=== PATIENT | male | born 1950 | race Hispanic/Latino ===

== ENCOUNTER 2017-08-22 07:23 | Inpatient (IN) | payer MEDICARE ==
[~2017-08-22] VITALS: Ht 167.6 cm; Wt 84.4 kg
[~2017-08-22 07:23] MED LIST: ADVAIR 250-501 EACH; ATORVASTATIN CA20 MG PO; DUONEB; FAMOTIDINE20 MG PO; FLOMAX0.4 MG PO; FUROSEMIDE40 MG/4 ML PO; GABAPENTIN300 MG PO; GLIPIZIDE ER5 MG PO; GLUCOPHAGE500 MG PO; HYDROCHLOROTHIA25 MG PO; KEFLEX500 MG PO; LASIX40 MG PO; LISINOPRIL10 MG PO; LISINOPRIL2.5 MG PO; MEDR; METOPROLOL TART50 MG PO; NORCO 7.5-3251 EACH PO; PLAVIX75 MG PO; PRAVASTATIN SOD80 MG PO; PROVENTIL HFA6.7 GM INH; SENNA S TABLET1 EACH PO; SPIRONOLACTONE25 MG PO; SYMBICORT 16010.2 GM INH; TAMSULOSIN HCL0.4 MG PO; [UNRECOGNIZED DRUG - OTHER]
[2017-08-22] MEDS ORDERED: ASPIRIN 81 MG CHEW TAB PO STA (07:30)
[2017-08-22] MEDS ORDERED: IPRATROPIUM BROMIDE 0.02% 2.5 ML NEB NEB STA (07:30)
[2017-08-22] MEDS ORDERED: METHYLPREDNISOLONE SOD SUCC 125 MG/2ML VIAL IV STA (07:30)
[2017-08-22] MEDS ORDERED: ALBUTEROL SULF 0.083% NEB SOLN 3 ML NEB NEB STA (07:30)
[2017-08-22 07:55] LABS: BASOPHILS % 0.4 % (0.0-1.0); EOSINOPHILS # (AUTO) 0.1 (0.0-0.4); HEMATOCRIT 39.1 % (38.2-49.6); HEMOGLOBIN 13.2 g/dL (14.0-18.0); LYMPHOCYTES % 12.1 % (18.0-39.1); MEAN CORPUSCULAR HEMOGLOBIN 29.7 pg (28-32); MEAN CORPUSCULAR HGB CONC 33.8 g/dL (31-35); MEAN CORPUSCULAR VOLUME 87.9 fL (81-99); MONOCYTES # (AUTO) 0.5 (0.2-0.8); MONOCYTES % 6.4 % (4.4-11.3); NEUTROPHILS # (AUTO) 6.3 (2.1-6.9); NEUTROPHILS % 79.8 % (38.7-80.0); PLATELET COUNT 181 x10e3/uL (140-360); RED BLOOD COUNT 4.45 x10e6/uL (4.3-5.7); RED CELL DISTRIBUTION WIDTH 15.2 % (11.7-14.4)
[2017-08-22 08:07] LABS: INR 0.98; PROTHROMBIN TIME 13.5 seconds (11.9-14.5)
--- NOTE | 2017-08-22 08:17 | Diagnostic Imaging Report ---
PROCEDURE: CHEST SINGLE (PORTABLE) COMPARISON: 07/13/2017. INDICATIONS: SHORTNESS OF BREATH FINDINGS: The lungs remain well-inflated. No focal airspace consolidation, pleural effusion, or pneumothorax. Stable postsurgical changes of the mediastinum with associated cardiomegaly. Mild prominence of the pulmonary vascular structures centrally. No acute osseous abnormality. CONCLUSION: Cardiomegaly with pulmonary venous congestion, similar in degree to that noted on 07/13/2017. Dictated by: Saul Fried M.D. on 08/22/2017 at 8:26 Electronically approved by: Saul Fried M.D. on 08/22/2017 at 8:26
[2017-08-22 08:31] LABS: B-TYPE NATRIURETIC PEPTIDE2 1263.4 pg/mL (0-100)
[2017-08-22] MEDS ORDERED: DOXYCYCLINE 100MG/NS 100ML 100 ML IV ONE (09:00)
[2017-08-22 09:07] LABS: ALBUMIN 3.8 g/dL (3.5-5.0); ALBUMIN/GLOBULIN RATIO 1.1 (0.8-2.0); ANION GAP 14.1 mmol/L (8-16); CALCIUM 9.1 mg/dL (8.4-10.2); CREATININE, SERUM 1.26 mg/dL (0.72-1.25); MAGNESIUM 2.1 MG/DL (1.3-2.1); POTASSIUM 4.1 mmol/L (3.5-5.1)
[2017-08-22 09:13] LABS: CREATINE KINASE MB 2.1 ng/mL (0.00-5.00)
[2017-08-22] MEDS ORDERED: ALBUTEROL/IPRATROPIUM 3 ML NEB NEB PRN (09:45)
[2017-08-22] MEDS ORDERED: ASPIRIN 81 MG CHEW TAB PO ONE (09:45)
[2017-08-22] MEDS: ALBUTEROL/IPRATROPIUM 3 ML NEB NEB SCH ×4 (10:54→21:45)
[2017-08-22] MEDS: LEVOFLOXACIN 750MG/D5W 150ML 150 ML IV SCH (12:25)
[2017-08-22] MEDS ORDERED: DEXTROSE 50% SYRINGE 50 ML IV PRN (14:00)
[2017-08-22 14:11] LABS: BILIRUBIN,URINE NEGATIVE (NEGATIVE); KETONES,URINE NEGATIVE (NEGATIVE); LEUKOCYTE ESTERASE ,URINE NEGATIVE (NEGATIVE); NITRITE,URINE NEGATIVE (NEGATIVE); PROTEIN,URINE DIPSTICK NEGATIVE (NEGATIVE); URINE UROBILINOGEN 0.2 mg/dL (0.2 - 1)
[2017-08-22 14:12] LABS: CLARITY,URINE CLEAR (CLEAR); COLOR,URINE YELLOW (YELLOW)
[2017-08-22 14:26] LABS: EPITHELIAL CELLS,URINE RARE /LPF; HYALINE CASTS >15 (0-1); WBC,URINE (MAN) 0-5 /HPF (0-5)
[2017-08-22] MEDS: METHYLPREDNISOLONE SOD SUCC 125 MG/2ML VIAL IV SCH ×2 (15:01→21:30)
[2017-08-22] MEDS: INSULIN REGULAR, HUMAN 100 UNIT/1 ML 3ML VIAL SQ SCH ×2 (16:04→20:54)
[2017-08-22 16:17] LABS: CREATINE KINASE MB 1.7 ng/mL (0.00-5.00)
[2017-08-22 16:39] VITALS: BP 143/69
[2017-08-22 16:40] VITALS: BP 143/69
[2017-08-22 19:20] VITALS: BP 127/59
[2017-08-22 21:59] VITALS: BP 127/59
[2017-08-23] VITALS: BP 135/59
[2017-08-23] MEDS: ALBUTEROL/IPRATROPIUM 3 ML NEB NEB SCH ×5 (04:45→21:15)
[2017-08-23 05:00] VITALS: BP 155/67
[2017-08-23] MEDS: METHYLPREDNISOLONE SOD SUCC 125 MG/2ML VIAL IV SCH ×3 (06:04→21:32)
[2017-08-23 06:43] LABS: BASOPHILS % 0.1 % (0.0-1.0); HEMATOCRIT 36.3 % (38.2-49.6); HEMOGLOBIN 12.3 g/dL (14.0-18.0); LYMPHOCYTES # (AUTO) 0.4 (1.0-3.2); LYMPHOCYTES % 4.2 % (18.0-39.1); MEAN CORPUSCULAR HEMOGLOBIN 29.1 pg (28-32); MEAN CORPUSCULAR HGB CONC 33.9 g/dL (31-35); MEAN CORPUSCULAR VOLUME 85.8 fL (81-99); MONOCYTES # (AUTO) 0.2 (0.2-0.8); MONOCYTES % 1.5 % (4.4-11.3); NEUTROPHILS # (AUTO) 9.7 (2.1-6.9); NEUTROPHILS % 93.7 % (38.7-80.0); PLATELET COUNT 200 x10e3/uL (140-360); RED BLOOD COUNT 4.23 x10e6/uL (4.3-5.7)
[2017-08-23 07:04] LABS: ANION GAP 17.6 mmol/L (8-16); BLOOD UREA NITROGEN 30 mg/dL (7-26); BUN/CREATININE RATIO 25 (6-25); CALCIUM 9.4 mg/dL (8.4-10.2); CARBON DIOXIDE 22 mmol/L (22-29); CHLORIDE 101 mmol/L (98-107); CREATININE, SERUM 1.18 mg/dL (0.72-1.25); EST GLOMERULAR FILTRATION RATE > 60 ML/MIN (60-); GLUCOSE 253 mg/dL (74-118); POTASSIUM 4.6 mmol/L (3.5-5.1); SODIUM 136 mmol/L (136-145)
[2017-08-23 07:57] VITALS: BP 127/60
[2017-08-23] MEDS ORDERED: SODIUM CHLORIDE 0.9% 250ML 250 ML ONE (08:46)
[2017-08-23] MEDS: INSULIN REGULAR, HUMAN 100 UNIT/1 ML 3ML VIAL SQ SCH ×4 (08:53→21:31)
[2017-08-23] MEDS ORDERED: GLIPIZIDE 5 MG TAB ER PO SCH (09:00)
[2017-08-23] MEDS: CLOPIDOGREL BISULFATE 75 MG TAB PO SCH (10:02)
[2017-08-23] MEDS: FAMOTIDINE 20 MG TAB PO SCH ×2 (10:02→17:02)
[2017-08-23] MEDS: FUROSEMIDE INJ 10 MG/ML 4 ML VIAL IV SCH (10:02)
[2017-08-23] MEDS: GUAIFENESIN 600 MG TAB PO SCH ×2 (10:02→17:02)
[2017-08-23] MEDS: GLIPIZIDE 2.5 MG TABCR PO SCH (10:02)
[2017-08-23] MEDS: SPIRONOLACTONE 25 MG TAB PO SCH (10:02)
[2017-08-23] MEDS: BUDESONIDE/FORMOTEROL 160/4.5MCG INHALER INH SCH ×2 (10:02→21:15)
[2017-08-23] MEDS: LEVOFLOXACIN 750MG/D5W 150ML 150 ML IV SCH (10:46)
[2017-08-23 11:28] VITALS: BP 137/63
--- NOTE | 2017-08-23 12:23 | Diagnostic Imaging Report ---
PROCEDURE: CT CHEST WITHOUT CONTRAST CT scan of the chest WITHOUT intravenous contrast, using standard protocol. TECHNIQUE: The chest was scanned utilizing a multidetector helical scanner from the apex to the level of the adrenal glands. No IV contrast was administered per protocol/per physician request). Coronal and sagittal multiplanar reformations were obtained. Total DLP: 516.78 COMPARISON: [facility], CT, CT CHEST W, 04/24/2017, 12:41. INDICATIONS: SHORTNESS OF BREATH FINDINGS: Lines/tubes: None. Lungs and Airways: Left basilar atelectasis versus scarring. There is a posterior left basilar ground-glass nodule estimated at 1.3 cm on image 80 series 2. Left upper lobe and lingula early in her atelectasis versus scarring. No focal consolidation. Pleura: Interval resolution of the fluid present bilateral pleural effusions. Heart and mediastinum: The heart is moderately enlarged. Calcifications of the thoracic aorta without aneurysmal dilatation. No significant mediastinal, hilar or axillary lymphadenopathy is seen. The main pulmonary artery is dilated measuring 3.5 cm in diameter. Multivessel coronary artery calcifications. Median sternotomy wires. Soft tissues: Normal. Abdomen: Limited views of the upper abdomen show extensive atherosclerotic calcifications. The glands are unremarkable. Bones: The visualized bony thorax is within normal limits. IMPRESSION: 1. No acute thoracic abnormality. 2. 1.0 cm ground-glass nodule in the left lung base posteriorly. Recommend followup CT chest nodule protocol in 6 months to document resolution. 2. Multivessel coronary artery disease. 3. Moderate cardiomegaly without pulmonary edema. Vel Qureshi M.D. Dictated by: Vel Qureshi M.D. on 08/23/2017 at 12:31 Electronically approved by: Vel Qureshi M.D. on 08/23/2017 at 12:31
--- NOTE | 2017-08-23 13:05 | Consultation ---
DATE OF CONSULTATION: August 23, 2017 PULMONARY CONSULTATION REASON FOR THE CONSULT: Shortness of breath and wheezing. HPI: Mr. Shrestha is a 66-year-old male who presented with shortness of breath and wheezing. The symptoms have been going on for 3 days, progressively getting worse. He reports that he smoked for 10-12 years in his life, but he has been diagnosed with COPD and is on inhalers at home. He denies any chest pain, nausea, vomiting, diarrhea, or focal weakness. He was started on Symbicort inhaler and Solu-Medrol. Patient reports that he is breathing a little better. REVIEW OF SYSTEMS GENERAL: Denies any fever or chills. HEAD: Denies any head trauma or head injury. ENT: Denies any earache, nosebleed, or throat pain. CVS: Denies any chest pain. RESPIRATORY: Shortness of breath and wheezing. The rest of the review systems is negative except as in the HPI. PAST MEDICAL HISTORY: Hypertension, diabetes, and hyperlipidemia. PAST SURGICAL HISTORY: CABG. FAMILY AND SOCIAL HISTORY: He smoked for 10 years in his life, quit 30 years ago. 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 PHYSICAL EXAMINATION VITAL SIGNS: Temperature 98.6, pulse of 78, blood pressure 127/60, and O2 sat 97% on room air. SKIN: Warm and dry. GENERAL APPEARANCE: He is an elderly male, not in any obvious distress. He is awake and alert, following commands, responding to questions appropriately. HEENT: Head atraumatic, normocephalic. Pupils are reactive. NECK: Supple. CHEST: Wheezing bilaterally. HEART: S1, S2 audible. ABDOMEN: Soft, nontender, nondistended. EXTREMITIES: No pedal edema. NEUROLOGIC: Awake and alert. LABORATORY DATA: White count of 10,000, hemoglobin 12.3, and platelets 200. Chemistry; sodium 136, potassium 4.6, chloride 101, BUN 30, and creatinine 1.18. Creatinine on presentation was 1.26. CT of the chest was done. The official report is pending, but it is showing cardiomegaly, no focal infiltrate on my review. ASSESSMENT: Mr. Shrestha is a 66-year-old male who has history of congestive heart failure and COPD, presented with shortness of breath. I think it is a combination of congestive heart failure versus reactive airway disease, unlikely that the patient has COPD with 15 years of smoking. PLAN: Continue the patient on Solu-Medrol and Symbicort inhaler. Currently, he is wheezing. Once the wheezing is better, then may consider doing a PFT. Continue diuretics. Patient likely has diastolic heart failure. Thank you for this consult. Job#: [id number] SAK
[2017-08-23] MEDS: ATORVASTATIN 40 MG TAB PO SCH (21:32)
[2017-08-24] MEDS: ALBUTEROL/IPRATROPIUM 3 ML NEB NEB SCH ×7 (02:15→23:23)
[2017-08-24] MEDS: METHYLPREDNISOLONE SOD SUCC 125 MG/2ML VIAL IV SCH ×2 (05:22→14:16)
[2017-08-24 06:40] LABS: BASOPHILS % 0.2 % (0.0-1.0); HEMATOCRIT 35.6 % (38.2-49.6); LYMPHOCYTES # (AUTO) 0.4 (1.0-3.2); MEAN CORPUSCULAR HEMOGLOBIN 29.2 pg (28-32); MEAN CORPUSCULAR HGB CONC 33.7 g/dL (31-35); MEAN CORPUSCULAR VOLUME 86.6 fL (81-99); MONOCYTES # (AUTO) 0.2 (0.2-0.8); MONOCYTES % 1.6 % (4.4-11.3); NEUTROPHILS # (AUTO) 11.2 (2.1-6.9); NEUTROPHILS % 94.8 % (38.7-80.0); PLATELET COUNT 206 x10e3/uL (140-360); RED BLOOD COUNT 4.11 x10e6/uL (4.3-5.7); RED CELL DISTRIBUTION WIDTH 15.5 % (11.7-14.4)
[2017-08-24 07:12] LABS: ANION GAP 17.9 mmol/L (8-16); CALCIUM 9.4 mg/dL (8.4-10.2); CREATININE, SERUM 1.38 mg/dL (0.72-1.25); POTASSIUM 3.9 mmol/L (3.5-5.1)
[2017-08-24 07:51] VITALS: BP 128/60
[2017-08-24] MEDS: CLOPIDOGREL BISULFATE 75 MG TAB PO SCH (08:21)
[2017-08-24] MEDS: LEVOFLOXACIN 750MG/D5W 150ML 150 ML IV SCH (08:21)
[2017-08-24] MEDS: FAMOTIDINE 20 MG TAB PO SCH ×2 (08:21→16:38)
[2017-08-24] MEDS: GUAIFENESIN 600 MG TAB PO SCH ×2 (08:21→16:38)
[2017-08-24] MEDS: SPIRONOLACTONE 25 MG TAB PO SCH (08:21)
[2017-08-24] MEDS: GLIPIZIDE 2.5 MG TABCR PO SCH (08:21)
[2017-08-24] MEDS: FUROSEMIDE INJ 10 MG/ML 4 ML VIAL IV SCH (08:21)
[2017-08-24] MEDS: INSULIN REGULAR, HUMAN 100 UNIT/1 ML 3ML VIAL SQ SCH ×2 (08:22→12:56)
[2017-08-24] MEDS ORDERED: GLIPIZIDE 2.5 MG TABCR PO SCH (09:00)
[2017-08-24 10:52] VITALS: BP 128/60
[2017-08-24] MEDS: BUDESONIDE/FORMOTEROL 160/4.5MCG INHALER INH SCH ×2 (11:20→19:50)
[2017-08-24 12:06] VITALS: BP 135/63
[2017-08-24] MEDS ORDERED: DEXTROSE 50% SYRINGE 50 ML IV PRN (13:00)
[2017-08-24] MEDS: MAGNESIUM HYDROXIDE 30 ML UDC PO PRN (14:16)
[2017-08-24 16:10] VITALS: BP 135/62
[2017-08-24] MEDS: INSULIN LISPRO 100 UNIT/1 ML 3ML VIAL SQ SCH ×2 (16:38→20:37)
[2017-08-24 20:00] VITALS: BP 129/73
[2017-08-24] MEDS: ATORVASTATIN 40 MG TAB PO SCH (20:36)
[2017-08-25] VITALS (7 sets, daily range): BP systolic 125–142; BP diastolic 61–72
[2017-08-25] MEDS: METHYLPREDNISOLONE SOD SUCC 125 MG/2ML VIAL IV SCH ×3 (00:03→15:32)
[2017-08-25] MEDS: ALBUTEROL/IPRATROPIUM 3 ML NEB NEB SCH ×6 (03:20→23:27)
[2017-08-25] MEDS: MAGNESIUM HYDROXIDE 30 ML UDC PO PRN (06:38)
[2017-08-25] MEDS: BUDESONIDE/FORMOTEROL 160/4.5MCG INHALER INH SCH ×2 (07:20→19:46)
[2017-08-25 07:40] LABS: BASOPHILS % 0.1 % (0.0-1.0); HEMATOCRIT 37.4 % (38.2-49.6); HEMOGLOBIN 12.6 g/dL (14.0-18.0); LYMPHOCYTES # (AUTO) 0.3 (1.0-3.2); LYMPHOCYTES % 2.9 % (18.0-39.1); MEAN CORPUSCULAR HEMOGLOBIN 29.2 pg (28-32); MEAN CORPUSCULAR HGB CONC 33.7 g/dL (31-35); MEAN CORPUSCULAR VOLUME 86.8 fL (81-99); MONOCYTES # (AUTO) 0.4 (0.2-0.8); NEUTROPHILS % 93.1 % (38.7-80.0); PLATELET COUNT 227 x10e3/uL (140-360); RED BLOOD COUNT 4.31 x10e6/uL (4.3-5.7); RED CELL DISTRIBUTION WIDTH 15.5 % (11.7-14.4)
[2017-08-25 08:01] LABS: ANION GAP 16.1 mmol/L (8-16); CALCIUM 9.2 mg/dL (8.4-10.2); CREATININE, SERUM 1.35 mg/dL (0.72-1.25); POTASSIUM 4.1 mmol/L (3.5-5.1)
[2017-08-25] MEDS: GLIPIZIDE 2.5 MG TABCR PO SCH (08:12)
[2017-08-25] MEDS: CLOPIDOGREL BISULFATE 75 MG TAB PO SCH (08:13)
[2017-08-25] MEDS: SPIRONOLACTONE 25 MG TAB PO SCH (08:13)
[2017-08-25] MEDS: LEVOFLOXACIN 750MG/D5W 150ML 150 ML IV SCH (08:13)
[2017-08-25] MEDS: GUAIFENESIN 600 MG TAB PO SCH ×2 (08:13→17:30)
[2017-08-25] MEDS: FUROSEMIDE INJ 10 MG/ML 4 ML VIAL IV SCH (08:13)
[2017-08-25] MEDS: FAMOTIDINE 20 MG TAB PO SCH ×2 (08:13→17:30)
[2017-08-25] MEDS: INSULIN LISPRO 100 UNIT/1 ML 3ML VIAL SQ SCH ×4 (08:13→21:50)
[2017-08-25] MEDS: ATORVASTATIN 40 MG TAB PO SCH (21:50)
[2017-08-26] VITALS (7 sets, daily range): BP systolic 109–136; BP diastolic 57–77
[2017-08-26] MEDS: ALBUTEROL/IPRATROPIUM 3 ML NEB NEB SCH ×5 (03:18→19:45)
[2017-08-26] MEDS: BUDESONIDE/FORMOTEROL 160/4.5MCG INHALER INH SCH ×2 (08:00→19:45)
[2017-08-26] MEDS: GLIPIZIDE 2.5 MG TABCR PO SCH (08:24)
[2017-08-26] MEDS: FUROSEMIDE INJ 10 MG/ML 4 ML VIAL IV SCH (08:24)
[2017-08-26] MEDS: SPIRONOLACTONE 25 MG TAB PO SCH (08:24)
[2017-08-26] MEDS: GUAIFENESIN 600 MG TAB PO SCH ×2 (08:25→17:19)
[2017-08-26] MEDS: CLOPIDOGREL BISULFATE 75 MG TAB PO SCH (08:25)
[2017-08-26] MEDS: FAMOTIDINE 20 MG TAB PO SCH ×2 (08:25→17:19)
[2017-08-26] MEDS: INSULIN LISPRO 100 UNIT/1 ML 3ML VIAL SQ SCH ×4 (08:26→20:44)
[2017-08-26] MEDS: MAGNESIUM HYDROXIDE 30 ML UDC PO PRN (08:26)
[2017-08-26] MEDS: LEVOFLOXACIN 750MG/D5W 150ML 150 ML IV SCH (08:28)
[2017-08-26] MEDS ORDERED: METHYLPREDNISOLONE SOD SUCC 40 MG/ML VIAL IV SCH (09:00)
[2017-08-26] MEDS ORDERED: BISACODYL 10 MG SUPP PR ONE (12:00)
[2017-08-26] MEDS: SENNOSIDES 8.6 MG TAB PO SCH (12:32)
[2017-08-26] MEDS ORDERED: POLYETHYLENE GLYCOL 3350 17 GM PACK PO ONE (18:30)
[2017-08-26] MEDS: ATORVASTATIN 40 MG TAB PO SCH (20:42)
[2017-08-27] MEDS: ALBUTEROL/IPRATROPIUM 3 ML NEB NEB SCH ×3 (00:15→07:00)
[2017-08-27 01:40] VITALS: BP 106/58
[2017-08-27 05:08] VITALS: BP 121/79
[2017-08-27] MEDS ORDERED: METHYLPREDNISOLONE SOD SUCC 40 MG/ML VIAL IV SCH (07:30)
[2017-08-27 08:00] VITALS: BP 133/72
[2017-08-27] MEDS: INSULIN LISPRO 100 UNIT/1 ML 3ML VIAL SQ SCH (09:00)
[2017-08-27] MEDS: CLOPIDOGREL BISULFATE 75 MG TAB PO SCH (09:30)
[2017-08-27] MEDS: FAMOTIDINE 20 MG TAB PO SCH (09:30)
[2017-08-27] MEDS: SENNOSIDES 8.6 MG TAB PO SCH (09:30)
[2017-08-27] MEDS: GUAIFENESIN 600 MG TAB PO SCH (09:30)
[2017-08-27] MEDS: SPIRONOLACTONE 25 MG TAB PO SCH (09:30)
[2017-08-27] MEDS: FUROSEMIDE INJ 10 MG/ML 4 ML VIAL IV SCH (10:00)
[2017-08-27] MEDS: GLIPIZIDE 2.5 MG TABCR PO SCH (10:00)
[2017-08-27] MEDS ORDERED: TYLENOL WITH C1 EACH PO (10:03)
[2017-08-27] MEDS ORDERED: LEVAQUIN500 MG PO (10:03)
[2017-08-27] MEDS ORDERED: VENTOLIN HFA18 GM INH (10:04)
[2017-08-27] MEDS ORDERED: MUCINEX600 MG PO (10:05)
[2017-08-27 11:00] VITALS: BP 138/78
[2017-08-27 12:00] VITALS: BP 138/78
[2017-08-27] MEDS ORDERED: POLYETHYLENE GLYCOL 3350 17 GM PACK PO SCH (12:00)
--- NOTE | 2017-10-15 21:34 | Discharge Summary ---
FINAL DIAGNOSES: 1. Acute on chronic diastolic dysfunction and congestive heart failure. 2. Acute exacerbation of chronic obstructive pulmonary disease. 3. Acute bronchitis. 4. Hypoxia. 5. Shortness of breath. SUMMARY: Patient is a 66-year-old male who came in with shortness of breath, productive cough and wheezing. Patient was given his usual medications. The patient is noncompliant as an outpatient. He was noncompliant with his nebulizer treatment inhaler. Patient remained with drinking alcohol with fluid overload. IV Lasix was given as well. The patient was stabilized. Fluid restriction education again and again discussed with the patient and compliancy of medication. The patient expressed understanding at this time as he did previously. He was discharged home and multiple medications were given. The patient was stable. He will follow up as an outpatient for any further treatment. Job#: [id number]
== END 2017-08-27 11:19 | disposition home or self-care (01) | DRG 190 ==
LOC: ER 07:23 → ERHOLD 10:16 → IMCU 16:00 → OBSVTOIN 08-23 08:54 → MED/SURG2 08-23 14:35
PROVIDERS: ADMIT Internal Medicine; ATTEND Internal Medicine
DX: J44.1 Chronic obstructive pulmonary disease with (acute) exacerbation (principal); I50.33 Acute on chronic diastolic (congestive) heart failure; J45.901 Unspecified asthma with (acute) exacerbation; J20.9 Acute bronchitis, unspecified; I25.10 Atherosclerotic heart disease of native coronary artery without angina pectoris; Z95.1 Presence of aortocoronary bypass graft; Z87.891 Personal history of nicotine dependence; I10 Essential (primary) hypertension; R09.02 Hypoxemia; E11.9 Type 2 diabetes mellitus without complications; Z79.4 Long term (current) use of insulin; R91.1 Solitary pulmonary nodule; J44.0 Chronic obstructive pulmonary disease with (acute) lower respiratory infection
CPT/HCPCS: 36415; 71045; 71250; 80048; 80053; 81001; 82550; 82552; 82553; 82948; 83605; 83735; 83880; 84484; 85025; 85610; 87040; 87086; 87400; 93005; 94640; 96372; 99285; G0378; J1940; J2920; J2930; J7050

== ENCOUNTER 2017-10-15 09:51 | Inpatient (IN) | payer MEDICARE ==
[~2017-10-15] VITALS: Ht 167.6 cm; Wt 93.4 kg
[~2017-10-15 09:51] MED LIST changes: +LEVAQUIN500 MG PO; +MUCINEX600 MG PO; +TYLENOL WITH C1 EACH PO; +VENTOLIN HFA18 GM INH
--- OUTSIDE RECORDS SUMMARY | 2017-10-15 09:54 | XMS REPORT ---
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 Allergies, Adverse Reactions, Alerts This patient has no known allergies or adverse reactions. Medications This patient has no known medications. Results Test Description Test Time Test Comments Text Results Atomic Results Result Comments CT CHEST WO [facility] [address] [address] Patient Name: STEVIE CAMEJO MR #: [id number] : 1950 Age/Sex: 66/M Req #: [id number] [facility] Physician: AVI VAUGHN MD Ordered by: AVI VAUGHN MD Report # : [id number] Location: [facility] Room/Bed: [place] [address] Procedure: [id number] CT/CT CHEST WO Exam Date: 08/23/17 Exam Time: 924 REPORT STATUS: Signed PROCEDURE: CT CHEST WITHOUT CONTRAST CT scan of the chest WITHOUT intravenous contrast, using standard protocol. TECHNIQUE: The chest was scanned utilizing a multidetector helical scanner from the apex to the level of the adrenal glands. No IV contrast was administered per protocol/per physician request). Coronal and sagittal multiplanar reformations were obtained. Total DLP: 516.78 COMPARISON: [facility], CT, CT CHEST W, 04/24/2017, 12:41. INDICATIONS: SHORTNESS OF BREATH FINDINGS: Lines/tubes: None. Lungs and Airways: Left basilar atelectasis versus scarring. There is a posterior left basilar ground-glass nodule estimated at 1.3 cm on image 80 series 2. Left upper lobe and lingula early in her atelectasis versus scarring. No focal consolidation. Pleura: Interval resolution of the fluid present bilateral pleural effusions. Heart and mediastinum: The heart is moderately enlarged. Calcifications of the thoracic aorta without aneurysmal dilatation. No significant mediastinal, hilar or axillary lymphadenopathy is seen. The main pulmonary artery is dilated measuring 3.5 cm in diameter. Multivessel coronary artery calcifications. Median sternotomy wires. Soft tissues: Normal. Abdomen: Limited views of the upper abdomen show extensive atherosclerotic calcifications. The glands are unremarkable. Bones: The visualized bony thorax is within normal limits. IMPRESSION: 1. No acute thoracic abnormality. 2. 1.0 cm ground-glass nodule in the left lung base posteriorly. Recommend followup CT chest nodule protocol in 6 months to document resolution. 2. Multivessel coronary artery disease. 3. Moderate cardiomegaly without pulmonary edema. Vel Santos M.D. Dictated by: Vel Santos M.D. on 08/23/2017 at 12:31 Electronically approved by: Vel Santos M.D. on 08/23/2017 at 12:31 Dictated By: MAXIMINO SANTOS MD, MD 1231 Transcribed By: CHANDRIKA on 08/23/17 1231 COPY TO: AVI VAUGHN MD CHEST [facility] (PORTABLE) [place] [address] Patient Name: STEVIE CAMEJO MR #: [id number] : 1950 Age/Sex: 66/M Req #: [id number] Adm Physician: Ordered by: KISHA MAHER MD Report #: [id number] Location: ER Room/Bed: Procedure: [id number] DX/CHEST SINGLE (PORTABLE) Exam Date: 08/22/17 Exam Time: 0750 REPORT STATUS: Signed PROCEDURE: CHEST SINGLE (PORTABLE) COMPARISON: 07/13/2017. INDICATIONS: SHORTNESS OF BREATH FINDINGS: The lungs remain well-inflated. No focal airspace consolidation, pleural effusion, or pneumothorax. Stable postsurgical changes of the mediastinum with associated cardiomegaly. Mild prominence of the pulmonary vascular structures centrally. No acute osseous abnormality. CONCLUSION: Cardiomegaly with pulmonary venous congestion, similar in degree to that noted on 07/13/2017. Dictated by : Gali Preston M.D. on 08/22/2017 at 8:26 Electronically approved by: Gali Preston M.D. on 08/22/2017 at 8:26 Dictated By: GALI PRESTON MD 5 Transcribed By : CHANDRIKA on 08/22/17825 COPY TO: KISHA MAHER MD CHEST SINGLE (PORTABLE) [place] [address] Patient Name: STEVIE CAMEJO MR #: [id number] : 1950 Age/Sex: 66/M Req #: [id number] Adm Physician: Ordered by: AMANDA BARNES Report #: [id number] Location: ER Room/Bed: _ Procedure: [id number] DX/CHEST SINGLE (PORTABLE) Exam Date: 07/13/17 Exam Time: 1130 REPORT STATUS: Signed PROCEDURE: CHEST SINGLE (PORTABLE) COMPARISON: [facility], , CHEST 2 VIEWS , 04/23/2017, 14:17. INDICATIONS: CHEST PAIN, DYSPNEA FINDINGS: LUNGS: Mild pulmonary vascular congestion. PLEURA: No effusions or pneumothorax. HEART T MEDIASTINUM: The heart is enlarged. Aortic calcification is present. There are sternotomy wire sutures and mediastinal clips. BONES T SOFT TISSUES: No acute findings. CONCLUSION : Cardiomegaly with mild pulmonary vascular congestion. Anna Irizarry D.O. Dictated by: Anna Irizarry D.O. on 07/13/2017 at 12:11 Electronically approved by: Anna Irizarry D.O. on 07/13/2017 at 12:11 Dictated By: ANNA IRIZARRY DO 1211 Transcribed By: CHANDRIKA on 07/13/17 1211 COPY TO: AMANDA BARNES CT CHEST W [place] [address] Patient Name: STEVIE CAMEJO MR #: [id number] : 1950 Age/Sex: 66/M Req #: [id number] [facility] Physician: AVI VAUGHN MD Ordered by: JOSUE BONE NP Report #: [id number] Location: [facility] Room/Bed: [place] [address] _ Procedure: [id number] CT/CT CHEST W Exam Date: 04/24/17 Exam Time: 1241 REPORT STATUS: Signed PROCEDURE: CT scan of the chest WITH intravenous contrast, using PE protocol. TECHNIQUE: The chest was scanned utilizing a multidetector helical scanner from the lung apex through the level of the adrenal glands after the IV administration of 100 cc of Isovue 370, with special concentration of the pulmonary arteries. Coronal and sagittal multiplanar reformations were obtained. COMPARISON : [facility], CT, CT CHEST W, 03/04/2017, 11:15. INDICATIONS: ACUTE DYSPNEA FINDINGS: Exam limited as it was performed during partial expiration, as well as breathing motion artifact. Lines/tubes: None. Lungs and Airways: No filling defect in the main, right or left pulmonary arteries to the segmental level to suggest pulmonary embolism. Increased attenuation of the pulmonary parenchyma, consistent with scan performed during expiration. Compressive atelectasis of bilateral lower lobes. Interval decrease in groundglass opacities and consolidation of the left lower lobe, consistent with improved pneumonia (series 3, image 70). There is persistent patchy airspace opacities and bronchial wall thickening in predominantly in the left lower lobe. Bronchial wall thickening is also noted in the right lower lobe (series 3, image 59). Stable scarring in the left upper lobe (series 3, image 23). Almost resolution of the previously visualized airspace opacities in the left upper lobe, with only a 5 mm focal ground glass opacity remaining (series 3, image 18). Visualized airways are clear, without endobronchial lesions. Pleura: Interval increase in bilateral small pleural effusions, right greater than left. Interval increase in loculated fluid in the left major fissure (sagittal image 84). Heart and mediastinum: Thyroid is unremarkable. Moderate cardiomegaly. Extensive atherosclerotic calcification of the coronary arteries and to a lesser degree thoracic aorta and aortic valves. Aorta is non-aneurysmal. The main pulmonary artery is enlarged, measuring 3.6 cm. Lymph nodes: Stable borderline enlarged right upper paratracheal lymph node (series 2, image 29), stable borderline to mildly enlarged left lower paratracheal lymph node (series 2, image 33). Stable enlarged subcarinal lymph node ( series 2, image 46). No hilar, or axillary adenopathy. Abdomen: Limited contrast-enhanced views of the upper abdomen show no abnormality within the visualized liver, spleen, pancreas, or kidneys. The adrenal glands are normal. Atherosclerotic calcification of the abdominal aorta and aortic branches, predominantly the splenic artery. Bones: No acute bony abnormalities. Degenerative disc changes in the thoracic spine. Mild osteopenia. IMPRESSION: 1. Limited exam, as described above. 2. No CT evidence of pulmonary embolism. 3. Interval increase in bilateral small pleural effusions, right greater than left, and loculated fluid in the left major fissure, with increased compressive atelectasis of bilateral lower lobes. Findings likely due to fluid overload/decompensated CHF. 4. Decrease in left upper and lower lobe opacities, likely representing improved pneumonia. 5. Enlarged main pulmonary artery, consistent with pulmonary hypertension. 6. Stable mediastinal adenopathy, likely reactive. Mis Jaeger M.D. Dictated by: Mis Jaeger M.D. on 04/24/2017 at 13:31 Electronically approved by: Mis Jaeger M.D. on 04/24/2017 at 13:31 Dictated By: MIS JAEGER MD 1331 Transcribed By: CHANDRIKA on 04/24/17 1331 COPY TO: JOSUE BONE COUNTERINTELLIGENCE ANALYST CHEST 2 VIEWS [place] [address] Patient Name: STEVIE CAMEJO MR #: [id number] : 1950 Age/Sex: 66/M Req #: [id number] Adm Physician: Ordered by: DARIUSZ FERRARI MD Report #: [id number] Location: ER Room/Bed: Procedure: [id number] DX/CHEST 2 VIEWS Exam Date: Exam Time: REPORT STATUS: Signed PROCEDURE: X-RAY CHEST, TWO VIEWS COMPARISON: 2016 INDICATIONS: SHORTNESS OF BREATH FINDINGS: The lungs remain mildly hyperinflated. No focal airspace consolidation, pleural effusion, or pneumothorax. Stable postsurgical changes of the mediastinum including sternotomy wires and mediastinal surgical clips, with tortuosity and atherosclerotic calcification of the thoracic aorta. Mild enlargement of the cardiac silhouette is also unchanged. No acute osseous abnormality. Unchanged mild anterior compression deformity of an upper lumbar vertebra. CONCLUSION: Stable cardiomegaly without vascular decompensation. Mild pulmonary hyperinflation suggestive of COPD. Dictated by: Gali Preston M.D. on 04/23/2017 at 14:47 Electronically approved by: Gali Preston M.D. on 04/23/2017 at 14:47 Dictated By: GALI PRESTON MD 1447 Transcribed By: CHANDRIKA on 04/23/17 1447 COPY TO: DARIUSZ FERRARI MD
--- NOTE | 2017-10-15 10:38 | Diagnostic Imaging Report ---
PROCEDURE: Frontal and lateral views of the chest. COMPARISON: CT chest 08/23/2017. Chest portable 08/22/2017 INDICATIONS: cough, congestion FINDINGS: Lines/tubes: None. Lungs: The lungs are well inflated and clear. There is no evidence of pneumonia or pulmonary edema. Pleura: There is no pleural effusion or pneumothorax. Heart and mediastinum: The heart and the mediastinum are normal. Bones: No acute bony abnormality. Median sternotomy wires. IMPRESSION: No acute radiographic abnormality. Dictated by: Saul Luther M.D. on 10/15/2017 at 10:38 Electronically approved by: Saul Luther M.D. on 10/15/2017 at 10:38
[2017-10-15 11:10] LABS: BASOPHILS % 0.6 % (0.0-1.0); EOSINOPHILS % 0.6 % (0.0-6.0); HEMOGLOBIN 12.7 g/dL (14.0-18.0); LYMPHOCYTES # (AUTO) 0.6 (1.0-3.2); LYMPHOCYTES % 8.4 % (18.0-39.1); MEAN CORPUSCULAR HEMOGLOBIN 30.4 pg (28-32); MEAN CORPUSCULAR HGB CONC 33.4 g/dL (31-35); MEAN CORPUSCULAR VOLUME 90.9 fL (81-99); MONOCYTES # (AUTO) 0.3 (0.2-0.8); MONOCYTES % 4.6 % (4.4-11.3); NEUTROPHILS % 85.4 % (38.7-80.0); PLATELET COUNT 213 x10e3/uL (140-360); RED BLOOD COUNT 4.18 x10e6/uL (4.3-5.7); RED CELL DISTRIBUTION WIDTH 16.3 % (11.7-14.4)
[2017-10-15 11:22] LABS: INR 1.19; PROTHROMBIN TIME 14.2 seconds (11.9-14.5)
[2017-10-15 11:23] LABS: PARTIAL THROMBOPLASTIN TIME 28.1 seconds (23.8-35.5)
[2017-10-15 11:29] LABS: ALBUMIN 3.9 g/dL (3.5-5.0); ALBUMIN/GLOBULIN RATIO 1.2 (0.8-2.0); ANION GAP 14.8 mmol/L (8-16); CALCIUM 9.8 mg/dL (8.4-10.2); CREATININE, SERUM 1.4 mg/dL (0.72-1.25); POTASSIUM 3.8 mmol/L (3.5-5.1)
[2017-10-15] MEDS ORDERED: DEXTROSE 50% SYRINGE 50 ML IV PRN (15:30)
[2017-10-15] MEDS ORDERED: SODIUM CHLORIDE FLUSH 10 ML SYR INJ PRN (15:30)
[2017-10-15] MEDS ORDERED: FUROSEMIDE INJ 10 MG/ML 4 ML VIAL IV SCH (17:00)
[2017-10-15] MEDS ORDERED: ACETAMINOPHEN/CODEINE 300MG - 30MG TAB PO PRN (18:45)
[2017-10-15] MEDS ORDERED: ALBUTEROL SULFATE HFA 8GM INHALATION AEROSOL INH PRN ×2 (18:45)
[2017-10-15] MEDS: INSULIN REGULAR, HUMAN 100 UNIT/1 ML 3ML VIAL SQ SCH ×2 (19:00→21:00)
--- NOTE | 2017-10-15 19:17 | History and Physical ---
HISTORY OF PRESENT ILLNESS: He is a 66-year-old male patient of mine who presented to the emergency room with recurrent shortness of breath and recently admitted for decompensated CHF and COPD. The patient had some issue with the compliance, and drinks alcohol. The patient was having sudden onset of severe dyspnea. The patient stated that he had been taking his medicine regularly. The patient was advised to check daily weight as an outpatient. The patient is stating that he is not drinking much liquid and not eating any salt. ALLERGIES: PENICILLIN, PIPERACILLIN, TAZOBACTAM, ZOSYN. SOCIAL HISTORY: Denied smoking or alcohol. PAST MEDICAL HISTORY: Hypertension, diabetes mellitus, history of coronary artery disease, COPD, CVA and past history of CABG. REVIEW OF SYSTEMS: Shortness of breath, orthopnea, cough, congestion. MEDICATIONS: The patient was on Tylenol with codeine, atorvastatin, , Plavix, Lasix, glipizide. PHYSICAL EXAMINATION GENERAL: He is an elderly male patient lying in bed, not in any acute distress, but is leaning forward. VITAL SIGNS: Temperature 98, blood pressure 150/70, respiratory rate 15, pulse rate 56, O2 sat 96%. HEENT: Normocephalic. NECK: No JVD, no lymphadenopathy. LUNGS: Bilateral equal air entry. Basal rales present. HEART: Systolic murmur present. S1 and S2, regular. ABDOMEN: Soft, bowel sounds present. NEUROLOGIC: No focal neurological deficits. ADMITTING IMPRESSION AND DIAGNOSES 1. Decompensated congestive heart failure. 2. Chronic obstructive pulmonary disease. 3. A 3rd degree AV block, new onset. 4. Diabetes mellitus. 5. Hypertension. 6. Coronary artery disease. 7. Cerebrovascular accident. PLAN: Will obtain cardiology consultation with Dr. Sparrow for possible pacemaker evaluation. Job#: [id number]
[2017-10-15] MEDS: ALBUTEROL/IPRATROPIUM 3 ML NEB NEB PRN (20:25)
--- NOTE | 2017-10-15 21:19 | Consultation ---
DATE OF CONSULTATION: October 15, 2017 CARDIOLOGY CONSULTATION CLINICAL HISTORY: This is a 66-year-old man known to me from previous evaluation. He was seen in the emergency room at [facility] because of high-grade AV block, positive 1st degree with AV dissociation. This patient has history of severe 1st-degree AV block, right bundle branch block, nonsustained supraventricular tachycardia. He is known to have coronary artery disease status post coronary artery bypass surgery and left main coronary stenting. Ejection fraction most recently was in the range of 30% to 35%. He denies any syncope or near syncope. He apparently has had congestive heart failure symptoms including mitral regurgitation. He had previously been hospitalized because of congestive heart failure. He presented with worsening shortness of breath and was found to have high-grade AV block. After being treated with bronchodilators, he was symptomatically improved and his heart rate has increased from 49 beats per minute to regular, approximately 75 beats per minute. PAST MEDICAL HISTORY: Is remarkable also for hypertension, diet-controlled diabetes, carotid artery disease, 70% in the left internal and 90% left external. 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 PAST SURGICAL HISTORY: Coronary artery bypass. FAMILY HISTORY: Brother had diabetes. Sister had cancer. PERSONAL/SOCIAL HISTORY: He denies smoking. ALLERGIES: NONE KNOWN. REVIEW OF SYSTEMS: Negative. PHYSICAL EXAMINATION: GENERAL: He is alert, coherent, appears to be comfortable. CARDIAC: Jugular veins are not distended. S1 and S2 were regular. There is no appreciable murmurs. LUNGS: Clear. ABDOMEN: Soft. Bowel sounds are present. EXTREMITIES: No cyanosis, clubbing or edema. LABORATORY DATA: The white count 7000, hemoglobin 12.7, platelet count 213,000, electrolytes are negative, BUN 17, creatinine 1.4, glucose 161. Total bilirubin 2.5. BNP is 3797. Albumin 3.9. INR is 1.1. Chest x-ray showed no acute pathology. IMPRESSION: 1. A 3rd-degree AV block with AV dissociation with a longstanding history of severe 1st-degree AV block and right bundle branch block. The patient has no syncopal symptoms and rhythm appears to have improved after being treated with bronchodilators. 2. Ischemic cardiomyopathy with the most recent ejection fraction in the range of 30% to 35%. 3. Status post coronary artery bypass surgery as well as left main stenting. 4. Carotid artery disease, 70% on the left internal and 90% on left external. 5. Chronic obstructive pulmonary disease. 6. Obstructive sleep apnea. 7. Mild mitral regurgitation. 8. Pulmonary hypertension at 54 mmHg. RECOMMENDATION: Because the patient has right bundle branch block, previous ischemic cardiomyopathy with ejection fraction in the range of 30% to 35%, recommended considering biventricular AICD. I will, therefore, consult Dr. Jesse Kirkland for this purpose. Job#: [id number] GH cc:JESSE CHANCE MD cc:BAIRON BAIRES MD
[2017-10-15] MEDS: ATORVASTATIN 20 MG TAB PO SCH (21:34)
[2017-10-15 23:57] VITALS: BP 155/72
[2017-10-16] VITALS (51 sets, daily range): BP systolic 105–178; BP diastolic 49–127
[2017-10-16] MEDS: ALBUTEROL/IPRATROPIUM 3 ML NEB NEB PRN ×3 (00:20→21:25)
[2017-10-16] MEDS: ACETAMINOPHEN/CODEINE 300MG - 30MG TAB PO PRN ×3 (01:19→21:33)
[2017-10-16 06:10] LABS: BASOPHILS % 0.2 % (0.0-1.0); HEMATOCRIT 33.7 % (38.2-49.6); HEMOGLOBIN 11.3 g/dL (14.0-18.0); LYMPHOCYTES # (AUTO) 0.4 (1.0-3.2); MEAN CORPUSCULAR HEMOGLOBIN 30.7 pg (28-32); MEAN CORPUSCULAR HGB CONC 33.5 g/dL (31-35); MEAN CORPUSCULAR VOLUME 91.6 fL (81-99); MONOCYTES # (AUTO) 0.3 (0.2-0.8); MONOCYTES % 4.1 % (4.4-11.3); NEUTROPHILS # (AUTO) 5.8 (2.1-6.9); NEUTROPHILS % 89.1 % (38.7-80.0); PLATELET COUNT 196 x10e3/uL (140-360); RED BLOOD COUNT 3.68 x10e6/uL (4.3-5.7); RED CELL DISTRIBUTION WIDTH 16.1 % (11.7-14.4)
[2017-10-16 06:36] LABS: ALBUMIN 3.3 g/dL (3.5-5.0); ALBUMIN/GLOBULIN RATIO 1.3 (0.8-2.0); ANION GAP 13.8 mmol/L (8-16); CALCIUM 9.2 mg/dL (8.4-10.2); CREATININE, SERUM 1.24 mg/dL (0.72-1.25); POTASSIUM 3.8 mmol/L (3.5-5.1)
[2017-10-16 07:11] LABS: CREATINE KINASE MB 3.4 ng/mL (0-5.0)
[2017-10-16] MEDS: BUDESONIDE/FORMOTEROL 160/4.5MCG INHALER INH SCH ×2 (07:25→17:00)
[2017-10-16 08:03] LABS: BAND NEUTROPHILS % (MANUAL) 1 %; LYMPHOCYTES % (MANUAL) 6 % (19-48); MONOCYTES % (MANUAL) 3 % (3.4-9.0); NEUTROPHILS % (MANUAL) 90 % (40-74)
[2017-10-16 08:04] LABS: ANISOCYTOSIS SLIGHT; PLATELET ESTIMATE ADEQUATE; PLATELET MORPHOLOGY COMMENT NORMAL; RBC MORPHOLOGY COMMENT NORMAL
[2017-10-16] MEDS: SPIRONOLACTONE 25 MG TAB PO SCH (08:16)
[2017-10-16] MEDS: FAMOTIDINE 20 MG TAB PO SCH ×2 (08:16→17:00)
[2017-10-16] MEDS: FUROSEMIDE 40 MG TAB PO SCH ×2 (08:16→17:00)
[2017-10-16] MEDS: GUAIFENESIN 600 MG TAB PO SCH ×2 (08:16→17:00)
[2017-10-16] MEDS: INSULIN REGULAR, HUMAN 100 UNIT/1 ML 3ML VIAL SQ SCH ×4 (08:53→21:00)
[2017-10-16] MEDS ORDERED: GLIPIZIDE 5 MG TAB ER PO SCH (09:00)
[2017-10-16] MEDS ORDERED: SALMETEROL/FLUTICASONE 250/50 INH SCH ×2 (09:00)
[2017-10-16] MEDS ORDERED: CLOPIDOGREL BISULFATE 75 MG TAB PO SCH (09:00)
[2017-10-16] MEDS ORDERED: SODIUM CHLORIDE 0.9% 500ML 500 ML ONE (18:45)
[2017-10-16] MEDS ORDERED: LIDOCAINE HCL 2% LOCAL 20 ML VIAL ONE (18:45)
[2017-10-16] MEDS ORDERED: FENTANYL CITRATE/PF 100MCG/2 ML INJ ONE (18:45)
[2017-10-16] MEDS ORDERED: MIDAZOLAM HCL 2 MG/2 ML VIAL ONE ×2 (18:45→20:11)
[2017-10-16] MEDS ORDERED: BACITRACIN 50,000 UNIT VIAL ONE (18:45)
[2017-10-16] MEDS ORDERED: SODIUM CHLORIDE 0.9% 1000ML 2,000 ML ONE (18:46)
[2017-10-16] MEDS ORDERED: VANCOMYCIN 1GM/NS 250 ML 250 ML ONE (18:47)
--- NOTE | 2017-10-16 20:40 | Consultation ---
DATE OF CONSULTATION: October 16, 2017 REFERRING PHYSICIAN: Dr. Neo Sparrow. REASON FOR CONSULTATION: Complete heart block, cardiomyopathy. HISTORY OF PRESENT ILLNESS: This is a 66-year-old gentleman with history of hypertension, history of coronary artery disease, history of ischemic cardiomyopathy with ejection fraction 25% for more than one year. He had a myocardial infarction about 3 years ago in 2014 when he underwent coronary bypass surgery. He has had ischemic cardiomyopathy on optimal medical therapy. He presented at this time with weakness, feeling tired and having dizziness, near syncope episodes. He was found to be bradycardiac. Heart rate in the 30s. He has been having intermittent 3rd-degree AV block. He has been in the ICU, currently having heart rate somewhere from 40s to 70, but he is still feeling dizzy. No syncope, no chest pain. REVIEW OF SYSTEMS: CONSTITUTIONAL: Negative. CARDIOVASCULAR: As per HPI. RESPIRATORY: Negative. GASTROINTESTINAL: Negative. GENITOURINARY: Negative. MUSCULOSKELETAL: Negative. EYES: Negative. ENT: Negative. ALLERGY AND IMMUNOLOGY: Negative. PSYCHIATRY: Negative. PAST MEDICAL HISTORY: Hypertension, coronary artery disease, cardiomyopathy, congestive heart failure class III. He has dyspnea with minimal exertion. PAST SURGICAL HISTORY: Coronary bypass surgery. FAMILY HISTORY: No premature coronary artery disease. SOCIAL HISTORY: No smoking, alcohol or illicit drugs. PHYSICAL EXAMINATION VITAL SIGNS: Blood pressure 138/60, pulse 40, respirations 20, O2 sats 98%. GENERAL: No acute distress. HEENT: Moist mucous membranes. CARDIOVASCULAR: Regular. RESPIRATORY: Clear. ABDOMEN: Soft and nontender. MUSCULOSKELETAL: 2+ distal pulses. NEUROLOGIC: No focal deficit. SKIN: No lesions. PSYCHIATRY: Normal thought process. EKG: Sinus, 3rd-degree AV block, right bundle branch block, escape rhythm. IMPRESSION 1. Third-degree AV block, highly symptomatic with near syncope and dizziness. 2. Congestive heart failure class III. 3. Ischemic cardiomyopathy for more than 1 year. Ejection fraction 25%. Refractory to medical therapy. 4. History of myocardial infarction 3 years ago with coronary bypass surgery. RECOMMENDATIONS: I had a discussion with the patient. He has a strong indication for pacing, indication for cardiac defibrillator for primary prevention of sudden cardiac and also for RESEARCH ADVISOR. This was discussed in detail with the patient, procedure with benefits and risks. The patient voiced understanding. The family wishes to proceed. Will plan for biventricular cardiac defibrillator implant. Thank you for letting us participate in Mr. Shrestha's healthcare. Job#: [id number] GH
[2017-10-16] MEDS: ATORVASTATIN 20 MG TAB PO SCH (21:37)
[2017-10-16] MEDS: MORPHINE SULFATE 2 MG/ML SYR IV PRN (21:41)
--- NOTE | 2017-10-16 21:55 | Diagnostic Imaging Report ---
EXAM: CHEST SINGLE (PORTABLE), AP 1 view INDICATION: Status post pacemaker COMPARISON: PA and lateral view of the chest October 15, 2017 FINDINGS: LINES/TUBES: Interval placement of left approach triple lead cardiac device. LUNGS: Limited evaluation of the lung secondary to overlying material and rotation. PLEURA: No effusions or pneumothorax. HEART AND MEDIASTINUM: Limited evaluation secondary to rotation. Median sternotomy wires and mediastinal clips. BONES AND SOFT TISSUES: No acute findings. IMPRESSION: Interval placement of left triple lead cardiac device. No evidence of a pneumothorax. Signed by: Dr. Keisha Gutiérrez M.D. on 10/16/2017 9:52 PM
--- NOTE | 2017-10-16 22:15 | Operative Report ---
DATE OF PROCEDURE: October 16, 2017 REFERRING PHYSICIAN: Dr. Sparrow. PREPROCEDURE DIAGNOSES 1. Third-degree AV block. 2. Right bundle branch block. 3. Ischemic cardiomyopathy with ejection fraction of 25%, refractory to medical therapy. 4. History of myocardial infarction 4 years ago. 5. Congestive heart failure Class III. POSTPROCEDURE DIAGNOSES 1. Third-degree AV block. 2. Right bundle branch block. 3. Ischemic cardiomyopathy with ejection fraction of 25%, refractory to medical therapy. 4. History of myocardial infarction 4 years ago. 5. Congestive heart failure Class III. PROCEDURES PERFORMED 1. Biventricular cardiac defibrillator implant. 2. Moderate sedation. 3. Moderate conscious sedation was provided under my direct supervision by a sedation-trained nurse. Sedation approximate time one hour. Versed and Fentanyl. There were no complications. See sedation report for details. ESTIMATED BLOOD LOSS: 10 mL. COMPLICATIONS: None. DESCRIPTION OF PROCEDURE: After informed consent was obtained, the patient was brought to the electrophysiology laboratory in a fasting and sedated state. The area over his chest was prepped and draped in the usual sterile fashion. Moderate sedation and prophylactic antibiotics were given. Then 1% lidocaine was used as local anesthetic, and a 3-cm skin incision was made in the left subclavicular area. Electrocautery, sharp and blunt dissection were used to reach the muscular fascia and a pocket was created for eventual implantation of the device. Vascular access was obtained x3 in the left axillary vein using modified Seldinger technique under fluoroscopic guidance. A 6-Bermudian, 9-Bermudian and 9.5-Bermudian sheaths were placed with the ventricular lead advanced to the RV apex. R-wave 13, pacing 0.6 at 0.5 with impedance 481. The coronary sinus was cannulated and CS angiogram demonstrated good posterolateral branch, successfully cannulated. Lead here demonstrated pacing threshold 2.2 at 0.5, impedance 684. No maggy stimulation. Atrial lead to the right atrial appendage, P-wave 2.5, pacing 0.5 at 0.5, and impedance 700. The sheaths were removed from the body. The leads were secured to the fascia using 0 silk. The pocket was irrigated with antibiotic solution using the pulse sales clerk food. Hemostasis was meticulous. The leads were connected to the device. The entire ICD system placed in the pocket. The incision was closed using Vicryl and Dermabond. The patient tolerated the procedure well. The procedure was deemed complete. SUMMARY OF HARDWARE IMPLANTED: 1. The new defibrillator is [employer], model number G158, [id number]. 2. The atrial lead is [employer], 4244, [id number]. 3. The right ventricular lead is [employer], 1474, [id number]. 4. The left ventricular lead is [employer], 7261, [id number]. IMPRESSION: Successful biventricular cardiac defibrillator implant via left axillary vein. PLAN: Routine postoperative monitoring in telemetry bed. Chest x-ray. Follow up in 2 weeks. Job#: [id number] GH
[2017-10-17] VITALS (13 sets, daily range): BP systolic 110–151; BP diastolic 49–85
[2017-10-17] MEDS: MORPHINE SULFATE 2 MG/ML SYR IV PRN ×2 (01:45→05:38)
[2017-10-17] MEDS: ACETAMINOPHEN/CODEINE 300MG - 30MG TAB PO PRN ×2 (04:00→17:03)
[2017-10-17 06:01] LABS: BASOPHILS % 0.3 % (0.0-1.0); EOSINOPHILS % 0.6 % (0.0-6.0); HEMATOCRIT 36.5 % (38.2-49.6); HEMOGLOBIN 11.9 g/dL (14.0-18.0); LYMPHOCYTES # (AUTO) 1.2 (1.0-3.2); LYMPHOCYTES % 16.9 % (18.0-39.1); MEAN CORPUSCULAR HEMOGLOBIN 30.4 pg (28-32); MEAN CORPUSCULAR HGB CONC 32.6 g/dL (31-35); MEAN CORPUSCULAR VOLUME 93.1 fL (81-99); MONOCYTES # (AUTO) 0.5 (0.2-0.8); MONOCYTES % 7.6 % (4.4-11.3); NEUTROPHILS # (AUTO) 5.2 (2.1-6.9); NEUTROPHILS % 74.3 % (38.7-80.0); PLATELET COUNT 197 x10e3/uL (140-360); RED BLOOD COUNT 3.92 x10e6/uL (4.3-5.7); RED CELL DISTRIBUTION WIDTH 16.9 % (11.7-14.4)
[2017-10-17 06:24] LABS: ALANINE AMINOTRANSFERASE 11 IU/L (0-55); ALBUMIN 3.6 g/dL (3.5-5.0); ALBUMIN/GLOBULIN RATIO 1.4 (0.8-2.0); ALKALINE PHOSPHATASE 63 IU/L (40-150); ANION GAP 14.7 mmol/L (8-16); BLOOD UREA NITROGEN 29 mg/dL (7-26); BUN/CREATININE RATIO 25 (6-25); CALCIUM 9.2 mg/dL (8.4-10.2); CARBON DIOXIDE 26 mmol/L (22-29); CHLORIDE 108 mmol/L (98-107); CREATININE, SERUM 1.14 mg/dL (0.72-1.25); EST GLOMERULAR FILTRATION RATE > 60 ML/MIN (60-); GLUCOSE 109 mg/dL (74-118); POTASSIUM 3.7 mmol/L (3.5-5.1); SODIUM 145 mmol/L (136-145)
[2017-10-17] MEDS: ALBUTEROL/IPRATROPIUM 3 ML NEB NEB PRN (06:54)
[2017-10-17] MEDS: GLIPIZIDE 2.5 MG TABCR PO SCH (07:30)
[2017-10-17] MEDS: INSULIN REGULAR, HUMAN 100 UNIT/1 ML 3ML VIAL SQ SCH ×4 (08:05→21:00)
[2017-10-17] MEDS: FUROSEMIDE 40 MG TAB PO SCH ×2 (08:46→16:10)
[2017-10-17] MEDS: GUAIFENESIN 600 MG TAB PO SCH ×2 (08:46→16:10)
[2017-10-17] MEDS: SPIRONOLACTONE 25 MG TAB PO SCH (08:46)
[2017-10-17] MEDS: FAMOTIDINE 20 MG TAB PO SCH ×2 (08:46→16:10)
[2017-10-17] MEDS: BUDESONIDE/FORMOTEROL 160/4.5MCG INHALER INH SCH ×2 (09:00→17:00)
[2017-10-17] MEDS ORDERED: VANCOMYCIN 1GM/NS 250 ML 250 ML IV ONE (19:00)
[2017-10-17] MEDS: ATORVASTATIN 20 MG TAB PO SCH (20:55)
[2017-10-18] VITALS: BP 134/67
[2017-10-18 01:09] VITALS: BP 110/49
[2017-10-18 04:00] VITALS: BP 119/56
[2017-10-18] MEDS: INSULIN REGULAR, HUMAN 100 UNIT/1 ML 3ML VIAL SQ SCH ×2 (07:30→11:50)
[2017-10-18 07:49] VITALS: BP 130/58
[2017-10-18] MEDS: SPIRONOLACTONE 25 MG TAB PO SCH (07:55)
[2017-10-18] MEDS: FUROSEMIDE 40 MG TAB PO SCH (07:55)
[2017-10-18] MEDS: GLIPIZIDE 2.5 MG TABCR PO SCH (07:55)
[2017-10-18] MEDS: GUAIFENESIN 600 MG TAB PO SCH (07:55)
[2017-10-18] MEDS: FAMOTIDINE 20 MG TAB PO SCH (07:55)
[2017-10-18] MEDS: ACETAMINOPHEN/CODEINE 300MG - 30MG TAB PO PRN (08:00)
[2017-10-18 08:18] VITALS: BP 130/58
[2017-10-18] MEDS: BUDESONIDE/FORMOTEROL 160/4.5MCG INHALER INH SCH (09:00)
[2017-10-18] MEDS: ALBUTEROL/IPRATROPIUM 3 ML NEB NEB PRN (09:01)
--- NOTE | 2017-10-18 10:38 | Discharge Summary ---
He is a 66-year-old male patient presented to the emergency room with shortness of breath and dizziness. ADMITTING IMPRESSION/DIAGNOSES 1. The patient was admitted with third-degree atrioventricular block. 2. Decompensated congestive heart failure. The patient had recurrent hospitalizations because of cardiomyopathy and classic CHF. He had a previous bypass and ME 3 years ago, diabetes and COPD. Also, some noncompliance which is leading to multiple hospitalization for CHF and COPD exacerbation. The patient was admitted with the above diagnosis. The patient was monitored. The patient was found to be having third-degree AV block. Cardiology evaluation was done by Dr. Sparrow. The patient was advised to get biventricular AICD with pacemaker. The patient also has carotid artery disease, 70% left internal and 90% left external disease. The patient had an EP surgery consultation by Dr. Jesse Murillo. The patient underwent biventricular AICD placement with pacemaker. The patient was monitored at that time in the ICU, and now being transferred to the floor. The patient has right lower extremity swelling. Will do a stat venous Doppler of the lower extremity to rule out any DVT prior to discharge. If the study is negative, will discharge home and continue on Lasix and continue medications. Status post pacemaker placement. The patient will be discharged home and followed up as an outpatient. BAIRON BAIRES MD Job#: [id number] [place]
[2017-10-18] MEDS ORDERED: FUROSEMIDE INJ 10 MG/ML 2 ML VIAL IV NR (10:45)
[2017-10-18 11:38] VITALS: BP 115/72
[2017-10-18] MEDS ORDERED: MINOCYCLINE HCL50 MG PO (13:23)
[2017-10-18] MEDS ORDERED: ATORVASTATIN 40 MG TAB PO SCH (21:00)
[2017-10-19] MEDS ORDERED: GLIPIZIDE 2.5 MG TABCR PO SCH (08:00)
--- NOTE | 2017-10-19 10:41 | Cardiology Report ---
DATE OF STUDY: October 18, 2017 DOPPLER SCAN OF THE LOWER EXTREMITY VEINS A 66-year-old male. The lower extremity veins were interrogated using the duplex scanning method. The veins were compressible. There was no definite deep venous thrombosis. CONCLUSION: No definite deep venous thrombosis seen involving the lower extremity veins bilaterally. Job#: [id number] cc:BAIRON BAIRES MD
== END 2017-10-18 14:00 | disposition home or self-care (01) | DRG 243 ==
LOC: ER 09:51 → OBSVTOIN 17:31 → ERHOLD 17:31 → EDBEDREQSVC 22:24 → ICU 23:26 → MED/SURG3 10-17 13:35
PROVIDERS: ADMIT Internal Medicine; ATTEND Internal Medicine
PROC: 0JH606Z Insertion of Pacemaker, Dual Chamber into Chest Subcutaneous Tissue and Fascia, Open Approach (ICD-10-PCS; principal; 2017-10-16)
PROC: 02HK3JZ Insertion of Pacemaker Lead into Right Ventricle, Percutaneous Approach (ICD-10-PCS; 2017-10-16)
PROC: 02HL3JZ Insertion of Pacemaker Lead into Left Ventricle, Percutaneous Approach (ICD-10-PCS; 2017-10-16)
DX: I11.0 Hypertensive heart disease with heart failure (principal); J44.1 Chronic obstructive pulmonary disease with (acute) exacerbation; I50.23 Acute on chronic systolic (congestive) heart failure; I25.5 Ischemic cardiomyopathy; I25.2 Old myocardial infarction; Z91.19 Patient's noncompliance with other medical treatment and regimen; I25.10 Atherosclerotic heart disease of native coronary artery without angina pectoris; Z95.1 Presence of aortocoronary bypass graft; E11.9 Type 2 diabetes mellitus without complications; Z79.4 Long term (current) use of insulin; Z86.73 Personal history of transient ischemic attack (TIA), and cerebral infarction without residual deficits; Z95.5 Presence of coronary angioplasty implant and graft; G47.33 Obstructive sleep apnea (adult) (pediatric); I65.23 Occlusion and stenosis of bilateral carotid arteries; I27.20 Pulmonary hypertension, unspecified
CPT/HCPCS: 33224; 36415; 71045; 71046; 77001; 80053; 82550; 82553; 82948; 83880; 84484; 85025; 85610; 85730; 93005; 93970; 94640; 99284; C1898; J1940; J2001; J2250; J2270; J3370; J7030; J7040

== ENCOUNTER 2018-01-13 13:06 | Emergency (ER) | payer MEDICARE ==
[~2018-01-13] VITALS: Ht 167.6 cm; Wt 93.4 kg
[~2018-01-13 13:06] MED LIST changes: +MINOCYCLINE HCL50 MG PO
[2018-01-13 13:36] LABS: BASOPHILS # (AUTO) 0.1 (0.0-0.1); BASOPHILS % 0.8 % (0.0-1.0); EOSINOPHILS # (AUTO) 0.6 (0.0-0.4); EOSINOPHILS % 9.7 % (0.0-6.0); HEMATOCRIT 37.3 % (38.2-49.6); HEMOGLOBIN 13.1 g/dL (14.0-18.0); LYMPHOCYTES # (AUTO) 0.9 (1.0-3.2); LYMPHOCYTES % 14.7 % (18.0-39.1); MEAN CORPUSCULAR HEMOGLOBIN 31.1 pg (28-32); MEAN CORPUSCULAR HGB CONC 35.1 g/dL (31-35); MEAN CORPUSCULAR VOLUME 88.6 fL (81-99); MONOCYTES # (AUTO) 0.7 (0.2-0.8); NEUTROPHILS # (AUTO) 3.9 (2.1-6.9); NEUTROPHILS % 62.5 % (38.7-80.0); PLATELET COUNT 175 x10e3/uL (140-360); RED BLOOD COUNT 4.21 x10e6/uL (4.3-5.7)
[2018-01-13 13:47] LABS: INR 1.2; PROTHROMBIN TIME 14.3 seconds (11.9-14.5)
[2018-01-13 13:48] LABS: PARTIAL THROMBOPLASTIN TIME 29.2 seconds (23.8-35.5)
[2018-01-13 13:58] LABS: ALBUMIN 3.6 g/dL (3.5-5.0); ALBUMIN/GLOBULIN RATIO 1.2 (0.8-2.0); ANION GAP 16.1 mmol/L (8-16); CALCIUM 9.4 mg/dL (8.4-10.2); CREATININE, SERUM 1.29 mg/dL (0.72-1.25); POTASSIUM 4.1 mmol/L (3.5-5.1)
--- NOTE | 2018-01-13 14:07 | Diagnostic Imaging Report ---
EXAMINATION: CHEST SINGLE (PORTABLE) INDICATION: Shortness of breath COMPARISON: 10/16/2017 FINDINGS: TUBES and LINES: AICD is intact. LUNGS: Lungs are well inflated. Lungs are clear. There is mild prominence of the central pulmonary vasculature, consistent with pulmonary venous congestion. PLEURA: No pleural effusion or pneumothorax. HEART AND MEDIASTINUM: Cardiac size is moderately enlarged. There are atherosclerotic calcifications within the aorta. BONES AND SOFT TISSUES: No acute osseous lesion. Soft tissues are unremarkable. UPPER ABDOMEN: No free air under the diaphragm. IMPRESSION: Moderate enlargement of the heart without evidence of edema. Central vascular congestion is present. Signed by: Dr. Seferino Medina M.D. on 01/13/2018 2:03 PM
[2018-01-13 14:17] LABS: CREATINE KINASE MB 2.5 ng/mL (0-5.0); THYROID STIMULATING HORMONE 1.544 uIU/mL (0.350-4.940)
[2018-01-13] MEDS ORDERED: ALBUTEROL/IPRATROPIUM 3 ML NEB ONE (14:43)
[2018-01-13] MEDS ORDERED: METHYLPREDNISOLONE SOD SUCC 125 MG/2ML VIAL IV NR (14:45)
[2018-01-13 14:57] LABS: BILIRUBIN,URINE NEGATIVE (NEGATIVE); CLARITY,URINE CLEAR (CLEAR); COLOR,URINE YELLOW (YELLOW); KETONES,URINE NEGATIVE (NEGATIVE); LEUKOCYTE ESTERASE ,URINE NEGATIVE (NEGATIVE); NITRITE,URINE NEGATIVE (NEGATIVE); PROTEIN,URINE DIPSTICK NEGATIVE (NEGATIVE); URINE UROBILINOGEN 0.2 mg/dL (0.2 - 1)
[2018-01-13 15:01] LABS: EPITHELIAL CELLS,URINE RARE /LPF; HYALINE CASTS 0-1 (0-1)
[2018-01-13] MEDS ORDERED: ALBUTEROL/IPRATROPIUM 3 ML NEB NEB ONE (15:15)
[2018-01-13] MEDS ORDERED: FUROSEMIDE 40 MG TAB PO NR (16:00)
== END 2018-01-13 16:50 | disposition home or self-care (01) ==
LOC: ER 13:06
DX: J44.1 Chronic obstructive pulmonary disease with (acute) exacerbation (principal); I11.0 Hypertensive heart disease with heart failure; I50.9 Heart failure, unspecified; E11.9 Type 2 diabetes mellitus without complications; Z79.4 Long term (current) use of insulin; I25.10 Atherosclerotic heart disease of native coronary artery without angina pectoris; Z79.02 Long term (current) use of antithrombotics/antiplatelets; Z88.1 Allergy status to other antibiotic agents; Z88.0 Allergy status to penicillin
CPT/HCPCS: 36415; 71045; 80053; 81001; 82550; 82553; 83605; 83735; 83880; 84443; 84484; 85025; 85610; 85730; 87086; 93005; 99284

== ENCOUNTER 2018-01-15 09:20 | Inpatient (IN) | payer MEDICARE ==
[~2018-01-15] VITALS: Ht 167.6 cm; Wt 83.6 kg
[2018-01-15] MEDS ORDERED: ALBUTEROL/IPRATROPIUM 3 ML NEB NEB ONE (10:00)
[2018-01-15] MEDS ORDERED: IPRATROPIUM BROMIDE 0.02% 2.5 ML NEB NEB STA (10:21)
[2018-01-15] MEDS ORDERED: SODIUM CHLORIDE 0.9% 500ML 500 ML IV STA (10:21)
[2018-01-15] MEDS ORDERED: ALBUTEROL SULF 0.083% NEB SOLN 3 ML NEB NEB STA (10:21)
[2018-01-15] MEDS ORDERED: METHYLPREDNISOLONE SOD SUCC 125 MG/2ML VIAL IV NR (10:30)
[2018-01-15] MEDS ORDERED: ASPIRIN 81 MG CHEW TAB PO ONE ×2 (10:30→13:15)
[2018-01-15 10:34] LABS: BASOPHILS % 0.1 % (0.0-1.0); HEMATOCRIT 37.6 % (38.2-49.6); HEMOGLOBIN 12.9 g/dL (14.0-18.0); LYMPHOCYTES # (AUTO) 0.4 (1.0-3.2); LYMPHOCYTES % 3.3 % (18.0-39.1); MEAN CORPUSCULAR HEMOGLOBIN 30.8 pg (28-32); MEAN CORPUSCULAR HGB CONC 34.3 g/dL (31-35); MEAN CORPUSCULAR VOLUME 89.7 fL (81-99); MONOCYTES # (AUTO) 0.5 (0.2-0.8); MONOCYTES % 4.1 % (4.4-11.3); NEUTROPHILS # (AUTO) 10.2 (2.1-6.9); PLATELET COUNT 180 x10e3/uL (140-360); RED BLOOD COUNT 4.19 x10e6/uL (4.3-5.7); RED CELL DISTRIBUTION WIDTH 13.5 % (11.7-14.4)
[2018-01-15 10:39] LABS: INR 1.19; PROTHROMBIN TIME 14.2 seconds (11.9-14.5)
[2018-01-15 10:40] LABS: PARTIAL THROMBOPLASTIN TIME 23.9 seconds (23.8-35.5)
[2018-01-15 10:49] LABS: ALBUMIN/GLOBULIN RATIO 1.3 (0.8-2.0); CREATININE, SERUM 1.57 mg/dL (0.72-1.25)
[2018-01-15 10:55] LABS: CREATINE KINASE MB 3.4 ng/mL (0-5.0)
[2018-01-15] MEDS ORDERED: GUAIFENESIN/CODEINE 10 ML CUP PO STA (12:18)
--- NOTE | 2018-01-15 12:22 | Diagnostic Imaging Report ---
PROCEDURE: X-RAY CHEST, TWO VIEWS COMPARISON: 01/13/2018. INDICATIONS: SHORTNESS OF BREATH FINDINGS: The lungs remain well-inflated and without consolidation, pleural effusion, or pneumothorax. Stable cardiomegaly with implantable cardiac device and postsurgical changes of the mediastinum. Prominence of the central pulmonary vasculature without overt edema. No acute osseous abnormality. CONCLUSION: Stable cardiomegaly with pulmonary venous congestion relative to 01/13/2018. Dictated by: Saul Fried M.D. on 01/15/2018 at 12:25 Electronically approved by: Saul Fried M.D. on 01/15/2018 at 12:25
[2018-01-15] MEDS ORDERED: SODIUM CHLORIDE 0.9% 1000ML 1,000 ML IV SCH (13:07)
[2018-01-15] MEDS ORDERED: SODIUM CHLORIDE FLUSH 10 ML SYR INJ PRN (13:15)
[2018-01-15] MEDS ORDERED: DEXTROSE 50% SYRINGE 50 ML IV PRN (13:30)
[2018-01-15] MEDS ORDERED: PREDNISONE20 MG PO (15:11)
[2018-01-15 16:00] VITALS: BP 144/67
[2018-01-15] MEDS: INSULIN REGULAR, HUMAN 100 UNIT/1 ML 3ML VIAL SQ SCH ×2 (16:30→21:30)
[2018-01-15] MEDS ORDERED: ACETAMINOPHEN/CODEINE 300MG - 30MG TAB PO PRN (17:30)
[2018-01-15] MEDS ORDERED: ACETAMINOPHEN 325 MG TAB PO PRN (17:30)
[2018-01-15] MEDS: ENOXAPARIN SOD INJ 40 MG/0.4 ML SYR SC SCH (17:50)
--- NOTE | 2018-01-15 18:23 | History and Physical ---
Location: Room 295. PRESENTING COMPLAINT: Shortness of breath with dry cough unremitting for the last 3 days. HISTORY OF PRESENT ILLNESS: A 67-year-old male who was admitted from the ER. The patient was brought to the ER by EMS from home. The patient tells that he started with shortness of breath on exertion with dry irritant cough since 2 days ago when he came to the emergency room. He was prescribed prednisolone and antibiotics and sent home. The patient was on Ventolin inhaler. He has extensive history of cardiac ailments including CAD, status post CABG, status post AICD placement in September of this year at this hospital. The patient denies any noncompliance with his medication. He had also history of COPD. He was on Ventolin inhaler p.r.n. The patient told that his regular medication including inhaler did not help his shortness of breath for which he decided to come back to the ER. The patient denied any fever, chest pain, palpitations, hemoptysis. He also denied any dizziness, abdominal pain, nausea, vomiting, diarrhea or dysuria. The patient is now sitting at bedside, feeling better than in the morning, as per his statement. REVIEW OF SYSTEMS CONSTITUTIONAL: No fever, chills, rigor. ENT: No visual disturbance, no hearing problem, no nasal congestion. CARDIOVASCULAR: No chest pain or palpitation. Shortness of breath, as per HPI. PULMONARY: Dry cough, no hemoptysis. Shortness of breath as per the HPI. GI: No abdominal pain, nausea, vomiting, passage of bloody stool or black stool. Last bowel movement 2 days ago. : No dysuria, no hematuria. MUSCULOSKELETAL, SKIN, LYMPHORETICULAR: No joint pain. No joint swelling. No skin rash. No swollen glands. NEUROLOGICAL: No loss of consciousness, seizure or headache. HISTORY OF PAST MEDICAL ILLNESS: History of CAD, status post CABG 4 years ago, chronic ischemic cardiomyopathy, systolic CHF with poor ejection fraction, 25%. Heart disease with AV block, status post AICD placement in September 2017. COPD. Hypertension. Hyperlipidemia. Diabetes mellitus type 2. Carotid artery stenosis bilaterally, by history. HISTORY OF PAST SURGERY: CABG 4 years ago. AICD placement September 2017. ALLERGIES: NO KNOWN DRUG ALLERGIES. HOME MEDICATIONS: As per medication sheet. SOCIAL HISTORY: The patient is single, never , does not have any children. 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 He is in contact with his sister and niece who live in [place]. The patient lives alone in [place]. HABITS: The patient quit smoking in the remote past. He drinks alcohol socially. Denies any other substance abuse history. FAMILY HISTORY: The patient's father has diabetes. Sister had cancer. PHYSICAL EXAMINATION VITAL SIGNS: Blood pressure at present 140/75, pulse 89, temperature 98.2, respirations 20, SPO2 97% at room air. GENERAL: Alert, sitting at bedside, not in any distress. HEENT: NC, AT. No pallor, no icterus. Pupils equally reacting. No nasal congestion. No discharge from ear. Oral mucosa moist. NECK: No JVD, no carotid bruit, no lymphadenopathy, no thyromegaly. HEART: S1 and S2 regular. No murmur. LUNGS: Air entry equal on both sides. Occasional fine crackles present over bases. Bilateral rhonchi present, scattered. ABDOMEN: Soft, nontender. No palpable mass. EXTREMITIES: No cyanosis, clubbing or edema. NEUROLOGICAL: Motor grossly equal on both sides. LABORATORY DATA: CBC: WBC 11.06, hemoglobin 12.9, hematocrit 37.6, platelets 180,000, MCV 89, RDW 13, neutrophils 92, lymphocytes 3.3, PT 14.2, INR 1.19. PTT 23.9. Chemistry panel: Sodium 139, chloride 102, CO2 of 20, BUN 33, creatinine 1.52. Glucose 219. Calcium 10. Total bilirubin 1.3, AST 19, ALT 15, alkaline phosphatase 86, CK 194, CK-MB 3.4, troponin 0.06. BNP 386. Total protein 7.1, albumin 3.1. RADIOLOGICAL: Chest x-ray single view: Stable. Cardiomegaly with pulmonary venous congestion. No consolidation, pleural effusion, no pneumothorax, implantable cardiac device and post surgical changes of the mediastinum. EKG: Paced rate of 67 beats per minute. ASSESSMENT AND PLAN: 1. Shortness of breath, likely secondary to chronic obstructive pulmonary disease exacerbation. The patient has scattered rhonchi bilateral lungs. Chest x-ray is negative for any consolidation or effusion. Continue the patient on IV Solu-Medrol along with nebulizer treatment for now. He does not appear to have any pneumonia at this time, but hold any antibiotics. 2. Leukocytosis likely due to steroids. The patient was on oral prednisone as outpatient. Will monitor for now, having blood culture. 3. Systolic congestive heart failure exacerbation. BNP is about 300. Chest x-ray suggestive of elevated pulmonary venous congestion without any effusion or pulmonary edema. The patient was on Lasix p.o. To keep the patient's Lasix IV for now. Maintain intake, output chart. 4. Multivessel coronary artery disease, status post coronary artery bypass graft. Does not have any chest pain. Troponin is normal. Monitor for now. 5. Dysrhythmia, status post AICD placement. Continue telemetry. 6. Hypertension. Continue regular medication. 7. Hyperlipidemia. Continue regular medication. 8. Diabetes mellitus, type 2. Continue the patient's regular medication of sliding scale insulin. 9. Nggjo-uh-clyuoyz renal insufficiency likely secondary to diuretics. Will monitor for now. The patient had a nephrology evaluation in the past. He does not have any renal symptoms. The patient is full code for now. Discharge plan will depend on the patient's hospital course and specialist recommendation. Job#: [id number] GAURAV
[2018-01-15] MEDS: ALBUTEROL/IPRATROPIUM 3 ML NEB NEB PRN (19:00)
[2018-01-15 19:45] LABS: CREATINE KINASE MB 3.2 ng/mL (0-5.0)
[2018-01-15 20:00] VITALS: BP 134/61
[2018-01-15] MEDS: FUROSEMIDE INJ 10 MG/ML 4 ML VIAL IV SCH (20:59)
[2018-01-15] MEDS: ATORVASTATIN 40 MG TAB PO SCH (21:00)
[2018-01-15] MEDS ORDERED: ATORVASTATIN 20 MG TAB PO SCH (21:00)
[2018-01-15] MEDS ORDERED: METHYLPREDNISOLONE SOD SUCC 125 MG/2ML VIAL IV SCH (21:00)
[2018-01-15] MEDS: METHYLPREDNISOLONE SOD SUCC 125 MG/2ML VIAL IV SCH (22:37)
[2018-01-15 22:47] VITALS: BP 134/61
[2018-01-16] VITALS (8 sets, daily range): BP systolic 123–153; BP diastolic 61–71
[2018-01-16 06:03] LABS: HEMOGLOBIN 12.9 g/dL (14.0-18.0); LYMPHOCYTES # (AUTO) 0.3 (1.0-3.2); LYMPHOCYTES % 3.3 % (18.0-39.1); MEAN CORPUSCULAR HEMOGLOBIN 30.3 pg (28-32); MEAN CORPUSCULAR HGB CONC 33.1 g/dL (31-35); MEAN CORPUSCULAR VOLUME 91.5 fL (81-99); MONOCYTES # (AUTO) 0.2 (0.2-0.8); MONOCYTES % 2.2 % (4.4-11.3); NEUTROPHILS # (AUTO) 9.1 (2.1-6.9); NEUTROPHILS % 93.8 % (38.7-80.0); PLATELET COUNT 173 x10e3/uL (140-360); RED BLOOD COUNT 4.26 x10e6/uL (4.3-5.7); RED CELL DISTRIBUTION WIDTH 13.5 % (11.7-14.4)
[2018-01-16] MEDS: METHYLPREDNISOLONE SOD SUCC 125 MG/2ML VIAL IV SCH ×3 (06:23→21:03)
[2018-01-16 06:55] LABS: ALBUMIN 3.8 g/dL (3.5-5.0); ALBUMIN/GLOBULIN RATIO 1.3 (0.8-2.0); ANION GAP 22.2 mmol/L (8-16); CALCIUM 9.7 mg/dL (8.4-10.2); CHOL/HDL RATIO 1.8 (3.9-4.7); CREATININE, SERUM 1.71 mg/dL (0.72-1.25); MAGNESIUM 2.3 MG/DL (1.3-2.1); PHOSPHORUS 4.1 MG/DL (2.3-4.7); POTASSIUM 4.2 mmol/L (3.5-5.1); THYROID STIMULATING HORMONE 0.415 uIU/mL (0.350-4.940)
[2018-01-16 07:03] LABS: LYMPHOCYTES % (MANUAL) 6 % (19-48); METAMYELOCYTES % (MANUAL) 1 % (0-0); MONOCYTES % (MANUAL) 1 % (3.4-9.0); MYELOCYTES % (MANUAL) 1 % (0-0); NEUTROPHILS % (MANUAL) 91 % (40-74); PLATELET ESTIMATE ADEQUATE; PLATELET MORPHOLOGY COMMENT NORMAL
[2018-01-16 07:04] LABS: RBC MORPHOLOGY COMMENT NORMAL
[2018-01-16 07:22] LABS: CREATINE KINASE MB 3.4 ng/mL (0-5.0)
[2018-01-16] MEDS: ALBUTEROL/IPRATROPIUM 3 ML NEB NEB PRN ×4 (07:45→19:43)
[2018-01-16] MEDS: FAMOTIDINE 20 MG TAB PO SCH ×2 (08:50→17:09)
[2018-01-16] MEDS: SPIRONOLACTONE 25 MG TAB PO SCH (08:50)
[2018-01-16] MEDS: CLOPIDOGREL BISULFATE 75 MG TAB PO SCH (08:50)
[2018-01-16] MEDS: GLIPIZIDE 2.5 MG TABCR PO SCH (08:50)
[2018-01-16] MEDS: FUROSEMIDE INJ 10 MG/ML 4 ML VIAL IV SCH ×2 (08:50→21:00)
[2018-01-16] MEDS: LEVOFLOXACIN 750MG/D5W 150ML 150 ML IV SCH (08:50)
[2018-01-16] MEDS: INSULIN REGULAR, HUMAN 100 UNIT/1 ML 3ML VIAL SQ SCH ×4 (08:54→21:00)
[2018-01-16] MEDS ORDERED: GLIPIZIDE 5 MG TAB ER PO SCH (09:00)
[2018-01-16 10:20] LABS: BILIRUBIN,URINE NEGATIVE (NEGATIVE); CLARITY,URINE SL CLOUDY (CLEAR); COLOR,URINE YELLOW (YELLOW); KETONES,URINE NEGATIVE (NEGATIVE); LEUKOCYTE ESTERASE ,URINE NEGATIVE (NEGATIVE); NITRITE,URINE NEGATIVE (NEGATIVE); PROTEIN,URINE DIPSTICK NEGATIVE (NEGATIVE); URINE UROBILINOGEN 0.2 mg/dL (0.2 - 1)
--- NOTE | 2018-01-16 10:51 | Consultation ---
DATE OF CONSULTATION: CARDIOLOGY CONSULTATION ATTENDING PHYSICIAN: Dr. Moreira CLINICAL HISTORY: This is a 67-year-old white man with a complicated cardiovascular history admitted via the emergency room because of cough and shortness of breath probably due to COPD in combination with mild congestive heart failure. This patient is known to have COPD. Also, known to have congestive heart failure. Ejection fraction in the range of 30% to 35%. He is status post previous bypass surgery and previous stenting of the left main following bypass surgery. Has a history of AICD implantation because of complete heart block. He has been followed in the office and was last seen a month or 2 ago. He presented to the emergency room 3 days ago and was felt to be stable and was dismissed. He returned yesterday morning with the same complaints. Was found to be slightly more congested on the chest x-ray. He was then admitted for further evaluation and treatment. According to the patient, he has been coughing up yellow sputum. Denies any fever. His white count was elevated at 11,000. PAST MEDICAL HISTORY: Remarkable for the above-mentioned cardiac conditions. There is also a history of carotid disease, 70% in the left internal and 90% in the left external. Obstructive sleep apnea, mild mitral regurgitation, pulmonary hypertension at 54 mmHg. PAST SURGICAL HISTORY: The previous mentioned coronary artery bypass surgery. FAMILY HISTORY: Brother had diabetes. Sister had cancer. PERSONAL/SOCIAL HISTORY: Denies smoking. REVIEW OF SYSTEMS: Noncontributory. PHYSICAL EXAMINATION GENERAL: He is alert and coherent. Appears to be comfortable. CARDIAC: Jugular veins are not well seen. S1 and S2 were irregular. There is a 1/6 systolic murmur. LUNGS: Show expiratory wheezes. ABDOMEN: Soft. Bowel sounds are present. EXTREMITIES: Show no cyanosis, clubbing or edema. LABORATORY STUDIES: The chest x-ray shows slightly more increased congestion. IMPRESSION 1. Shortness of breath probably due to chronic obstructive pulmonary disease with the patient coughing up yellow sputum in combination with mild congestive heart failure since the chest x-ray shows slightly more congested. 2. Ischemic cardiomyopathy: Ejection fraction in the range of 30% to 35%. 3. Coronary artery disease: Status post previous coronary artery bypass surgery, which was followed in 2013 by acute posterior wall myocardial infarction treated with a left main stent extending into the circumflex coronary artery inside a previous stent done at the [facility]. 4. Carotid artery disease, 70% on the left internal and 90% on the left external. 5. Chronic obstructive pulmonary disease. 6. Obstructive sleep apnea. 7. Mild mitral regurgitation. 8. Pulmonary hypertension, 54 mmHg. 9. Automatic implanted cardioverter defibrillator implantation for third-degree atrioventricular block and cardiomyopathy. RECOMMENDATIONS: Agree with current plans for hospitalization and treating with bronchodilators. Mild additional diuresis compared to baseline. Job#: [id number] [place] cc:MD GARRISON PRITCHARD MD
--- NOTE | 2018-01-16 11:24 | Diagnostic Imaging Report ---
PROCEDURE:US RETROPERITONEAL ( KIDNEY ). COMPARISON:Renal ultrasound 02/03/2017 INDICATIONS:JULITA TECHNIQUE: Torres-scale and color sonographic images of the bilateral kidneys and bladder where obtained in transverse and longitudinal planes. FINDINGS: RIGHT KIDNEY: 10.4 x 5.1 x 5.4 cm, cortex 1.3 cm Cysts: None Solid masses: None Stones: None Hydronephrosis: Absent Echogenicity: Normal LEFT KIDNEY: 10.8 x 5.7 x 4.8 cm, cortex 1.5 cm Cysts: None Solid masses: None Stones: None Hydronephrosis: Absent Echogenicity: Normal Bladder: Normal. Both ureteral jets visualized. Prostate: Size approximately 2.6 x 2.6 x 4.3 cm (11.9 cc). Size may be underestimated by shadowing. CONCLUSION: Normal renal ultrasound. No hydronephrosis. Dictated by: Lexa Meza M.D. on 01/16/2018 at 11:28 Electronically approved by: Lexa Meza M.D. on 01/16/2018 at 11:28
[2018-01-16] MEDS: ACETYLCYSTEINE 20% INHAL SOLN 30 ML VIAL INH SCH ×2 (12:00→19:43)
[2018-01-16] MEDS: DOCUSATE SODIUM 100 MG CAP PO PRN ×2 (15:00→21:03)
[2018-01-16] MEDS: BENZONATATE 100 MG CAP PO SCH ×2 (15:00→21:00)
[2018-01-16] MEDS: ENOXAPARIN SOD INJ 40 MG/0.4 ML SYR SC SCH (17:10)
[2018-01-16] MEDS: BUDESONIDE 0.25 MG/2 ML NEB NEB SCH (19:43)
[2018-01-16] MEDS: ATORVASTATIN 40 MG TAB PO SCH (21:00)
[2018-01-17] VITALS: BP 123/57
[2018-01-17] MEDS: ACETYLCYSTEINE 20% INHAL SOLN 30 ML VIAL INH SCH ×4 (02:17→19:15)
[2018-01-17] MEDS: ALBUTEROL/IPRATROPIUM 3 ML NEB NEB PRN ×4 (02:17→19:15)
[2018-01-17 04:00] VITALS: BP 141/60
[2018-01-17] MEDS: METHYLPREDNISOLONE SOD SUCC 125 MG/2ML VIAL IV SCH ×3 (05:23→22:00)
[2018-01-17 06:23] LABS: BASOPHILS % 0.1 % (0.0-1.0); HEMATOCRIT 39.6 % (38.2-49.6); HEMOGLOBIN 13.2 g/dL (14.0-18.0); LYMPHOCYTES # (AUTO) 0.3 (1.0-3.2); LYMPHOCYTES % 3.9 % (18.0-39.1); MEAN CORPUSCULAR HEMOGLOBIN 30.2 pg (28-32); MEAN CORPUSCULAR HGB CONC 33.3 g/dL (31-35); MEAN CORPUSCULAR VOLUME 90.6 fL (81-99); MONOCYTES # (AUTO) 0.2 (0.2-0.8); MONOCYTES % 2.7 % (4.4-11.3); NEUTROPHILS # (AUTO) 8.1 (2.1-6.9); NEUTROPHILS % 92.2 % (38.7-80.0); PLATELET COUNT 170 x10e3/uL (140-360); RED BLOOD COUNT 4.37 x10e6/uL (4.3-5.7); RED CELL DISTRIBUTION WIDTH 13.2 % (11.7-14.4)
[2018-01-17 07:00] LABS: ALBUMIN 3.9 g/dL (3.5-5.0); ALBUMIN/GLOBULIN RATIO 1.3 (0.8-2.0); ANION GAP 16.9 mmol/L (8-16); CALCIUM 9.5 mg/dL (8.4-10.2); CREATININE, SERUM 1.59 mg/dL (0.72-1.25); POTASSIUM 4.9 mmol/L (3.5-5.1)
[2018-01-17] MEDS: BUDESONIDE 0.25 MG/2 ML NEB NEB SCH ×2 (07:25→19:15)
[2018-01-17] MEDS: FAMOTIDINE 20 MG TAB PO SCH ×2 (07:30→16:30)
[2018-01-17] MEDS: INSULIN REGULAR, HUMAN 100 UNIT/1 ML 3ML VIAL SQ SCH ×4 (07:30→20:54)
[2018-01-17 07:55] VITALS: BP 130/75
[2018-01-17] MEDS: GLIPIZIDE 2.5 MG TABCR PO SCH (08:00)
[2018-01-17] MEDS: LEVOFLOXACIN 750MG/D5W 150ML 150 ML IV SCH (09:00)
[2018-01-17] MEDS: SPIRONOLACTONE 25 MG TAB PO SCH (09:00)
[2018-01-17] MEDS: CLOPIDOGREL BISULFATE 75 MG TAB PO SCH (09:00)
[2018-01-17] MEDS: BENZONATATE 100 MG CAP PO SCH ×3 (09:00→20:18)
[2018-01-17] MEDS: FUROSEMIDE INJ 10 MG/ML 4 ML VIAL IV SCH ×2 (09:00→20:18)
[2018-01-17 11:57] VITALS: BP 116/76
[2018-01-17 16:03] VITALS: BP 129/67
[2018-01-17] MEDS: ENOXAPARIN SOD INJ 40 MG/0.4 ML SYR SC SCH (17:00)
[2018-01-17 20:00] VITALS: BP 132/60
[2018-01-17] MEDS: DOCUSATE SODIUM 100 MG CAP PO PRN (20:18)
[2018-01-17] MEDS: ATORVASTATIN 40 MG TAB PO SCH (20:18)
[2018-01-18] VITALS (8 sets, daily range): BP systolic 112–158; BP diastolic 57–77
[2018-01-18] MEDS: ACETYLCYSTEINE 20% INHAL SOLN 30 ML VIAL INH SCH ×4 (01:05→19:46)
[2018-01-18] MEDS: ALBUTEROL/IPRATROPIUM 3 ML NEB NEB PRN ×4 (01:05→19:46)
[2018-01-18] MEDS: METHYLPREDNISOLONE SOD SUCC 125 MG/2ML VIAL IV SCH ×3 (05:46→21:49)
[2018-01-18 05:58] LABS: BASOPHILS % 0.2 % (0.0-1.0); HEMATOCRIT 36.5 % (38.2-49.6); HEMOGLOBIN 12.3 g/dL (14.0-18.0); LYMPHOCYTES # (AUTO) 0.3 (1.0-3.2); LYMPHOCYTES % 4.4 % (18.0-39.1); MEAN CORPUSCULAR HEMOGLOBIN 30.4 pg (28-32); MEAN CORPUSCULAR HGB CONC 33.7 g/dL (31-35); MEAN CORPUSCULAR VOLUME 90.3 fL (81-99); MONOCYTES # (AUTO) 0.2 (0.2-0.8); MONOCYTES % 3.4 % (4.4-11.3); NEUTROPHILS # (AUTO) 5.6 (2.1-6.9); NEUTROPHILS % 90.4 % (38.7-80.0); PLATELET COUNT 144 x10e3/uL (140-360); RED BLOOD COUNT 4.04 x10e6/uL (4.3-5.7); RED CELL DISTRIBUTION WIDTH 12.9 % (11.7-14.4)
[2018-01-18 06:22] LABS: ALBUMIN 3.5 g/dL (3.5-5.0); ALBUMIN/GLOBULIN RATIO 1.3 (0.8-2.0); BILIRUBIN,DIRECT 0.5 mg/dL (0.0-0.5); CALCIUM 8.5 mg/dL (8.4-10.2); CREATININE, SERUM 1.52 mg/dL (0.72-1.25)
[2018-01-18] MEDS: FAMOTIDINE 20 MG TAB PO SCH ×2 (07:55→16:45)
[2018-01-18] MEDS: INSULIN REGULAR, HUMAN 100 UNIT/1 ML 3ML VIAL SQ SCH ×4 (07:55→20:37)
[2018-01-18] MEDS: LEVOFLOXACIN 750MG/D5W 150ML 150 ML IV SCH (08:20)
[2018-01-18] MEDS: SPIRONOLACTONE 25 MG TAB PO SCH (08:20)
[2018-01-18] MEDS: CLOPIDOGREL BISULFATE 75 MG TAB PO SCH (08:20)
[2018-01-18] MEDS: FUROSEMIDE INJ 10 MG/ML 4 ML VIAL IV SCH ×2 (08:20→20:36)
[2018-01-18] MEDS: BENZONATATE 100 MG CAP PO SCH ×3 (08:20→20:36)
[2018-01-18] MEDS: BUDESONIDE 0.25 MG/2 ML NEB NEB SCH ×2 (09:00→19:46)
[2018-01-18] MEDS ORDERED: GUAIFENESIN/DEXTROMETHORPHAN LIQD 5 ML UDC NG PRN (09:15)
[2018-01-18] MEDS: GLIPIZIDE 2.5 MG TABCR PO SCH (16:40)
[2018-01-18] MEDS: ENOXAPARIN SOD INJ 40 MG/0.4 ML SYR SC SCH (16:45)
--- NOTE | 2018-01-18 16:52 | Consultation ---
DATE OF CONSULTATION: PULMONARY CONSULTATION This patient is known to me from previous admission. REASON FOR CONSULTATION: COPD exacerbation. HISTORY OF PRESENT ILLNESS: Mr. Shrestha is a 67-year-old male with a history of hypertension, diabetes, coronary artery disease, ischemic cardiomyopathy, systolic heart failure with ejection fraction 25%, history of AICD placement and COPD. He presented with shortness of breath on exertion and cough for the last 2 to 3 days. He was prescribed prednisone and antibiotics and was sent home. He reports that his shortness of breath has gotten somewhat better, but he still feels short of breath. He denies any fever, chest pain, palpitations, hemoptysis. REVIEW OF SYSTEMS GENERAL: Denies any fever or chills. HEAD: Denies any head trauma. ENT: Denies any earache. CVS: Denies any chest pain. RESPIRATORY: Shortness of breath. GI: Denies any nausea or vomiting. OTHER: Rest of the review of systems are negative except as in HPI. PAST MEDICAL HISTORY: Hypertension, diabetes, hyperlipidemia, congestive heart failure with ejection fraction 25%, morbid obesity. Also has history of AV block and AICD placement in September of 2017. PAST SURGICAL HISTORY: CABG and AICD placement in September 2017. FAMILY AND SOCIAL HISTORY: Never . Single. He lives alone. He has only 10 years of smoking history. Drinks alcohol socially. FAMILY HISTORY: Father has diabetes. PHYSICAL EXAMINATION VITALS: Temperature 97.1. Pulse of 60. Blood pressure 121/61. Respiratory rate of 18. O2 sat 98% on room air. SKIN: Warm and dry. HEENT: Head is atraumatic and normocephalic. NECK: Supple. No JVD. Thyroid is not enlarged. CHEST: The patient still has bilateral rhonchi. HEART: S1, S2 audible. ABDOMEN: Soft, nontender and nondistended. EXTREMITIES: No clubbing, cyanosis or edema. NEUROLOGIC: Awake and alert. LABS: White count of 6000, hemoglobin 12.3, platelets 144. Chemistry: Sodium 136, potassium 4.0, chloride 101, BUN 42, creatinine 1.52. When he came in, his creatinine was 1.71. ASSESSMENT AND PLAN: Mr. Shrestha is a 67-year-old male who presented with worsening shortness of breath, cough and wheezing. Chest x-ray showing increased congestion. No clear-cut infiltrate. Reason for shortness of breath is acute exacerbation of systolic heart failure along with chronic obstructive pulmonary disease exacerbation. Patient has rhonchi bilaterally. PLAN 1. Agree with IV Solu-Medrol, nebulizer treatment, Mucomyst, Pulmicort treatment. Patient is slowly getting better according to his history. However, he still has wheezing and rhonchi. 2. I will do a CT of the chest without contrast. Continue the rest of the treatment. 3. Oxygen as needed to keep the O2 sat more than or equal to 92%. Job#: [id number]
--- NOTE | 2018-01-18 17:47 | Diagnostic Imaging Report ---
PROCEDURE: CT CHEST WITHOUT CONTRAST CT scan of the chest WITHOUT intravenous contrast, using standard protocol. TECHNIQUE: The chest was scanned utilizing a multidetector helical scanner from the apex to the level of the adrenal glands. No IV contrast was administered per physician's request. Coronal and sagittal multiplanar reformations were obtained. COMPARISON: Patients [facility], CT, CT CHEST WO, 08/23/2017, 9:30. INDICATIONS: SHORTNESS OF BREATH FINDINGS: Lines/tubes: Left upper chest multilead cardiac device with distal tips in the right atrium, right ventricle and coronary sinus. Lungs and Airways: No consolidation, pulmonary nodules or masses. Stable linear opacities in the left upper lobe consistent with scarring (series 3, images 38). Previously visualized groundglass nodule in the left lower lobe is not seen on the current exam, and likely represented focal atelectasis. Airways are clear, without endobronchial lesions. Pleura: No effusion, or pneumothorax. Heart and mediastinum: The thyroid is unremarkable. Stable cardiomegaly. Atherosclerotic calcification of the coronary arteries, aortic valves and thoracic aorta. Aorta is non-aneurysmal. Main pulmonary artery is enlarged, measuring 3.5 cm. Lymph nodes: No mediastinal, hilar, or axillary adenopathy. Abdomen: Limited views of the upper abdomen show no abnormality within the visualized liver, spleen, pancreas, or kidneys. The adrenal glands are unremarkable. Bones and soft tissues: No aggressive lytic lesions. Generalized osteopenia. Degenerative disc changes in the thoracic spine. Midline sternotomy wires. Soft tissues are grossly unremarkable. IMPRESSION: 1. no acute thoracic abnormality. 2. Stable left upper lobe scarring. 3. Previously visualized groundglass nodule in the left lower lobe is not seen on the current exam, and likely represented focal atelectasis rather than a nodule. No new nodules are identified. 4. Multivessel coronary artery disease. Yomi Jaeger M.D. Dictated by: Yomi Jaeger M.D. on 01/18/2018 at 17:50 Electronically approved by: Yomi Jaeger M.D. on 01/18/2018 at 17:50
[2018-01-18] MEDS: ATORVASTATIN 40 MG TAB PO SCH (20:36)
[2018-01-19 00:58] VITALS: BP 116/52
[2018-01-19] MEDS: ALBUTEROL/IPRATROPIUM 3 ML NEB NEB PRN ×4 (01:30→19:42)
[2018-01-19] MEDS: ACETYLCYSTEINE 20% INHAL SOLN 30 ML VIAL INH SCH ×4 (01:30→19:42)
[2018-01-19 04:00] VITALS: BP 116/60
[2018-01-19] MEDS: METHYLPREDNISOLONE SOD SUCC 125 MG/2ML VIAL IV SCH (06:01)
[2018-01-19 06:49] LABS: BASOPHILS % 0.1 % (0.0-1.0); HEMATOCRIT 35.7 % (38.2-49.6); HEMOGLOBIN 12.5 g/dL (14.0-18.0); LYMPHOCYTES # (AUTO) 0.3 (1.0-3.2); LYMPHOCYTES % 4.4 % (18.0-39.1); MEAN CORPUSCULAR HEMOGLOBIN 30.6 pg (28-32); MEAN CORPUSCULAR VOLUME 87.3 fL (81-99); MONOCYTES # (AUTO) 0.4 (0.2-0.8); MONOCYTES % 5.7 % (4.4-11.3); NEUTROPHILS # (AUTO) 6.2 (2.1-6.9); NEUTROPHILS % 88.5 % (38.7-80.0); PLATELET COUNT 137 x10e3/uL (140-360); RED BLOOD COUNT 4.09 x10e6/uL (4.3-5.7); RED CELL DISTRIBUTION WIDTH 12.8 % (11.7-14.4)
[2018-01-19] MEDS: BUDESONIDE 0.25 MG/2 ML NEB NEB SCH ×2 (07:00→19:42)
[2018-01-19 07:07] LABS: ALBUMIN 3.3 g/dL (3.5-5.0); ALBUMIN/GLOBULIN RATIO 1.4 (0.8-2.0); ANION GAP 12.7 mmol/L (8-16); CALCIUM 8.6 mg/dL (8.4-10.2); CREATININE, SERUM 1.32 mg/dL (0.72-1.25); POTASSIUM 3.7 mmol/L (3.5-5.1)
[2018-01-19 08:03] VITALS: BP 133/74
[2018-01-19] MEDS: GLIPIZIDE 2.5 MG TABCR PO SCH ×2 (08:57→16:26)
[2018-01-19] MEDS: FAMOTIDINE 20 MG TAB PO SCH ×2 (08:57→16:26)
[2018-01-19] MEDS: BENZONATATE 100 MG CAP PO SCH ×3 (08:57→21:27)
[2018-01-19] MEDS: CLOPIDOGREL BISULFATE 75 MG TAB PO SCH (08:57)
[2018-01-19] MEDS: FUROSEMIDE INJ 10 MG/ML 4 ML VIAL IV SCH ×2 (08:57→21:27)
[2018-01-19] MEDS: LEVOFLOXACIN 750MG/D5W 150ML 150 ML IV SCH (08:57)
[2018-01-19] MEDS: SPIRONOLACTONE 25 MG TAB PO SCH (08:57)
[2018-01-19] MEDS: INSULIN REGULAR, HUMAN 100 UNIT/1 ML 3ML VIAL SQ SCH ×4 (08:59→21:28)
[2018-01-19 11:24] LABS: LYMPHOCYTES % (MANUAL) 5 % (19-48); MONOCYTES % (MANUAL) 5 % (3.4-9.0); NEUTROPHILS % (MANUAL) 90 % (40-74); PLATELET ESTIMATE ADEQUATE; PLATELET MORPHOLOGY COMMENT NORMAL; RBC MORPHOLOGY COMMENT NORMAL
[2018-01-19 11:57] VITALS: BP 107/71
[2018-01-19] MEDS: METHYLPREDNISOLONE SOD SUCC 40 MG/ML VIAL IV SCH ×2 (13:41→21:27)
[2018-01-19 15:49] VITALS: BP 107/66
[2018-01-19] MEDS: ENOXAPARIN SOD INJ 40 MG/0.4 ML SYR SC SCH (16:26)
[2018-01-19 20:15] VITALS: BP 98/56
[2018-01-19] MEDS: ATORVASTATIN 40 MG TAB PO SCH (21:27)
[2018-01-20] VITALS (8 sets, daily range): BP systolic 98–151; BP diastolic 54–72
[2018-01-20] MEDS: ALBUTEROL/IPRATROPIUM 3 ML NEB NEB PRN ×4 (00:05→19:36)
[2018-01-20] MEDS: ACETYLCYSTEINE 20% INHAL SOLN 30 ML VIAL INH SCH ×4 (00:05→19:36)
[2018-01-20] MEDS: METHYLPREDNISOLONE SOD SUCC 40 MG/ML VIAL IV SCH ×3 (05:55→21:19)
[2018-01-20 07:54] LABS: ANION GAP 14.1 mmol/L (8-16); BLOOD UREA NITROGEN 34 mg/dL (7-26); BUN/CREATININE RATIO 29 (6-25); CALCIUM 8.7 mg/dL (8.4-10.2); CARBON DIOXIDE 25 mmol/L (22-29); CHLORIDE 104 mmol/L (98-107); CREATININE, SERUM 1.16 mg/dL (0.72-1.25); EST GLOMERULAR FILTRATION RATE > 60 ML/MIN (60-); GLUCOSE 232 mg/dL (74-118); POTASSIUM 4.1 mmol/L (3.5-5.1); SODIUM 139 mmol/L (136-145)
[2018-01-20] MEDS: BENZONATATE 100 MG CAP PO SCH (08:10)
[2018-01-20] MEDS: GLIPIZIDE 2.5 MG TABCR PO SCH ×2 (08:10→16:27)
[2018-01-20] MEDS: BUDESONIDE 0.25 MG/2 ML NEB NEB SCH ×2 (08:15→19:36)
[2018-01-20] MEDS ORDERED: GUAIFENESIN 600 MG TAB PO PRN (08:30)
[2018-01-20] MEDS: INSULIN REGULAR, HUMAN 100 UNIT/1 ML 3ML VIAL SQ SCH ×4 (08:40→21:17)
[2018-01-20] MEDS: FAMOTIDINE 20 MG TAB PO SCH ×2 (08:55→16:27)
[2018-01-20] MEDS: LEVOFLOXACIN 750MG/D5W 150ML 150 ML IV SCH (08:56)
[2018-01-20] MEDS: SPIRONOLACTONE 25 MG TAB PO SCH (08:56)
[2018-01-20] MEDS: FUROSEMIDE INJ 10 MG/ML 4 ML VIAL IV SCH ×2 (08:56→21:16)
[2018-01-20] MEDS: CLOPIDOGREL BISULFATE 75 MG TAB PO SCH (08:56)
[2018-01-20] MEDS: ENOXAPARIN SOD INJ 40 MG/0.4 ML SYR SC SCH (16:27)
[2018-01-20] MEDS: ATORVASTATIN 40 MG TAB PO SCH (21:16)
[2018-01-21] MEDS: ALBUTEROL/IPRATROPIUM 3 ML NEB NEB PRN
[2018-01-21 01:29] VITALS: BP 130/63
[2018-01-21 05:16] VITALS: BP 124/60
[2018-01-21] MEDS: ACETYLCYSTEINE 20% INHAL SOLN 30 ML VIAL INH SCH ×2 (06:00)
[2018-01-21] MEDS: METHYLPREDNISOLONE SOD SUCC 40 MG/ML VIAL IV SCH (06:25)
[2018-01-21] MEDS: BUDESONIDE 0.25 MG/2 ML NEB NEB SCH (07:00)
[2018-01-21 07:16] LABS: ANION GAP 17.3 mmol/L (8-16); CALCIUM 8.9 mg/dL (8.4-10.2); CREATININE, SERUM 1.26 mg/dL (0.72-1.25); POTASSIUM 4.3 mmol/L (3.5-5.1)
[2018-01-21] MEDS: INSULIN REGULAR, HUMAN 100 UNIT/1 ML 3ML VIAL SQ SCH (07:30)
[2018-01-21 07:50] VITALS: BP 141/77
[2018-01-21] MEDS: CLOPIDOGREL BISULFATE 75 MG TAB PO SCH (08:28)
[2018-01-21] MEDS: FAMOTIDINE 20 MG TAB PO SCH (08:28)
[2018-01-21] MEDS: LEVOFLOXACIN 750MG/D5W 150ML 150 ML IV SCH (08:28)
[2018-01-21] MEDS: GLIPIZIDE 2.5 MG TABCR PO SCH (08:28)
[2018-01-21] MEDS: SPIRONOLACTONE 25 MG TAB PO SCH (08:28)
[2018-01-21] MEDS: FUROSEMIDE INJ 10 MG/ML 4 ML VIAL IV SCH (08:28)
--- NOTE | 2018-01-21 09:57 | Discharge Summary ---
He is a 67-year-old male patient of mine who presented to the emergency room with complaint of shortness of breath for 3 days. ADMITTING IMPRESSION AND DIAGNOSES 1. Chronic obstructive pulmonary disease with exacerbation causing shortness of breath. 2. Leukocytosis secondary to steroids. 3. 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 4. Multivessel coronary artery disease, status post bypass surgery and angioplasty. 5. Diabetes mellitus with vascular disease. 6. Hypertensive heart disease. 7. Chronic back pain. 8. Drug dependency. 9. Alcoholism. 10. Carotid artery disease, 70% left internal and 90% left external. 11. Secondary pulmonary hypertension. HOSPITAL COURSE SUMMARY: The patient was admitted with the above diagnoses. The patient was treated with IV Levaquin, prednisone and Lasix. Pulmonary and cardiology consultations were done. Dr. Sparrow evaluated the patient. Dr. Michael and Dr. Rey evaluated the patient for pulmonary. The patient was given nebulizer treatment and oxygen. The patient had a CT scan of the chest done. It just showed left upper lobe scarring and a nodule in the left lower lobe that was previously seen but it disappeared on this exam, so probably that was atelectasis. The patient had a renal ultrasound done that was normal. A chest x-ray was done which was stable with minimal vascular congestion. Now, upon stabilization, the patient will be discharged home on neb treatments, p.o. prednisone, Levaquin and Lasix. The patient was advised to continue using his long-acting bronchodilators with steroid. BAIRON BAIRES MD Job#: [id number]
[2018-01-21 11:56] VITALS: BP 141/77
== END 2018-01-21 11:19 | disposition home or self-care (01) | DRG 191 ==
LOC: ER 09:20 → ERHOLD 13:07 → MED/SURG3 14:40
PROVIDERS: ADMIT Internal Medicine; ATTEND Internal Medicine
DX: J44.1 Chronic obstructive pulmonary disease with (acute) exacerbation (principal); I42.8 Other cardiomyopathies; I50.22 Chronic systolic (congestive) heart failure; I11.0 Hypertensive heart disease with heart failure; N28.9 Disorder of kidney and ureter, unspecified; I25.5 Ischemic cardiomyopathy; I25.10 Atherosclerotic heart disease of native coronary artery without angina pectoris; I34.0 Nonrheumatic mitral (valve) insufficiency; I27.20 Pulmonary hypertension, unspecified
CPT/HCPCS: 36415; 71046; 71250; 76770; 80048; 80053; 80061; 81001; 82248; 82270; 82550; 82553; 82948; 83036; 83690; 83735; 83880; 84100; 84443; 84484; 85025; 85610; 85730; 87040; 87070; 87205; 93005; 94640; 99284; J1650; J1940; J2920; J2930; J7030; J7040

== ENCOUNTER 2018-03-14 01:08 | Observation (INO) | payer MEDICARE ==
[~2018-03-14] VITALS: Ht 167.6 cm; Wt 81.8 kg
[~2018-03-14 01:08] MED LIST changes: +PREDNISONE20 MG PO
[2018-03-14] MEDS ORDERED: ONDANSETRON HCL INJ 2 MG/ML VIAL IV STA (01:10)
[2018-03-14] MEDS ORDERED: DIATRIZOATE MEGL/DIATRIZOA SOD 30 ML BTL PO ONE (01:22)
[2018-03-14 01:39] LABS: BASOPHILS % 0.6 % (0.0-1.0); EOSINOPHILS # (AUTO) 0.5 (0.0-0.4); EOSINOPHILS % 7.8 % (0.0-6.0); HEMATOCRIT 37.2 % (38.2-49.6); HEMOGLOBIN 12.5 g/dL (14.0-18.0); LYMPHOCYTES # (AUTO) 1.2 (1.0-3.2); LYMPHOCYTES % 17.7 % (18.0-39.1); MEAN CORPUSCULAR HGB CONC 33.6 g/dL (31-35); MEAN CORPUSCULAR VOLUME 92.3 fL (81-99); MONOCYTES # (AUTO) 0.6 (0.2-0.8); MONOCYTES % 8.6 % (4.4-11.3); NEUTROPHILS # (AUTO) 4.4 (2.1-6.9); NEUTROPHILS % 64.3 % (38.7-80.0); PLATELET COUNT 165 x10e3/uL (140-360); RED BLOOD COUNT 4.03 x10e6/uL (4.3-5.7); RED CELL DISTRIBUTION WIDTH 14.1 % (11.7-14.4)
[2018-03-14 01:48] LABS: ALBUMIN 3.7 g/dL (3.5-5.0); ALBUMIN/GLOBULIN RATIO 1.2 (0.8-2.0); CALCIUM 9.1 mg/dL (8.4-10.2); CREATININE, SERUM 1.57 mg/dL (0.72-1.25)
--- NOTE | 2018-03-14 01:57 | Diagnostic Imaging Report ---
EXAMINATION: CHEST SINGLE (PORTABLE) INDICATION: Shortness of breath COMPARISON: 01/15/2018 chest x-ray and CT of the chest without contrast 01/18/2018 FINDINGS: TUBES and LINES: AICD is intact. Sternotomy wires are stable LUNGS: Lungs are not well inflated. There are bibasilar atelectasis. There is mild prominence of the central pulmonary vasculature, consistent with pulmonary venous congestion. Opacity in the left lung base, retrocardiac space is indeterminate PLEURA: Small left pleural effusion is suspected HEART AND MEDIASTINUM: Cardiac size is severely enlarged, accentuated by poor inspiratory effort. There are atherosclerotic calcifications within the aorta. BONES AND SOFT TISSUES: No acute osseous lesion. Soft tissues are unremarkable. UPPER ABDOMEN: No free air under the diaphragm. IMPRESSION: 1. Low lung volumes. 2. Cardiomegaly. 3. Opacity in the left lung base, retrocardiac distribution is nonspecific and may represent atelectasis aspiration or developing pneumonia Signed by: Dr. Seferino Medina M.D. on 03/14/2018 1:54 AM
[2018-03-14 02:09] LABS: BILIRUBIN,URINE NEGATIVE (NEGATIVE); CLARITY,URINE CLEAR (CLEAR); COLOR,URINE YELLOW (YELLOW); KETONES,URINE NEGATIVE (NEGATIVE); LEUKOCYTE ESTERASE ,URINE NEGATIVE (NEGATIVE); NITRITE,URINE NEGATIVE (NEGATIVE); PROTEIN,URINE DIPSTICK NEGATIVE (NEGATIVE); URINE UROBILINOGEN 0.2 mg/dL (0.2 - 1)
[2018-03-14] MEDS ORDERED: LEVOFLOXACIN 500MG/D5W 100ML 100 ML IV SCH (02:15)
[2018-03-14 02:30] LABS: BACTERIA,URINE RARE /HPF; EPITHELIAL CELLS,URINE RARE /LPF
[2018-03-14 02:37] LABS: RBC,URINE 0-5 /HPF (0-5)
--- NOTE | 2018-03-14 03:29 | Diagnostic Imaging Report ---
EXAM: CT Abdomen and Pelvis WITHOUT contrast INDICATION: Abdominal pain COMPARISON: None. TECHNIQUE: Abdomen and pelvis were scanned utilizing a multidetector helical scanner from the lung base to the pubic symphysis without administration of IV contrast. Absence of intravenous contrast decreases sensitivity for detection of focal lesions and vascular pathology. Coronal and sagittal reformations were obtained. Routine protocol was performed. IV CONTRAST: None. ORAL CONTRAST: Gastrografin solution, 900 cc RADIATION DOSE: Total DLP: 602.95 mGy*cm Estimated effective dose: (DLP x 0.015 x size factor) mSv COMPLICATIONS: None FINDINGS: LINES and TUBES: Partially visualized ICD leads within the right ventricle, right atrium and coronary sinus LOWER THORAX: Minimal left lower lobe atelectasis. Cardiomegaly. HEPATOBILIARY: No focal hepatic lesions. No biliary ductal dilation. GALLBLADDER: No radio-opaque stones or sludge. No wall thickening. SPLEEN: No splenomegaly. PANCREAS: No focal masses or ductal dilatation. ADRENALS: No adrenal nodules KIDNEYS/URETERS: No hydronephrosis. No cystic or solid mass lesions. No stones. GI TRACT: No abnormal distention, wall thickening, or evidence of bowel obstruction. Appendix is normal. PELVIC ORGANS/BLADDER: Unremarkable. LYMPH NODES: No lymphadenopathy. VESSELS: There is severe atherosclerotic disease in the aorta and major arterial branches. PERITONEUM / RETROPERITONEUM: No free air or fluid. BONES: There are degenerative changes in the lumbar spine. SOFT TISSUES: Unremarkable. IMPRESSION: 1. No evidence of acute intra-abdominal or pelvic abnormality. 2. Extensive atherosclerotic disease of the abdominal aorta and branches Signed by: Dr. Seferino Medina M.D. on 03/14/2018 3:26 AM
[2018-03-14] MEDS: ALBUTEROL SULF 0.083% NEB SOLN 3 ML NEB NEB SCH ×4 (03:45→16:30)
[2018-03-14] MEDS ORDERED: ACETAMINOPHEN/CODEINE 300MG - 30MG TAB PO PRN (03:45)
[2018-03-14] MEDS ORDERED: DEXTROSE 50% SYRINGE 50 ML IV PRN (03:45)
[2018-03-14 05:17] VITALS: BP 120/57
[2018-03-14 05:57] VITALS: BP 120/57
[2018-03-14] MEDS: IPRATROPIUM BROMIDE 0.02% 2.5 ML NEB NEB SCH ×3 (07:15→11:26)
[2018-03-14] MEDS: INSULIN REGULAR, HUMAN 100 UNIT/1 ML 3ML VIAL SQ SCH ×3 (07:30→16:07)
[2018-03-14 07:41] VITALS: BP 163/71
[2018-03-14 08:00] VITALS: BP 163/71
[2018-03-14] MEDS: FUROSEMIDE 40 MG TAB PO SCH ×2 (09:00→16:07)
[2018-03-14] MEDS ORDERED: SPIRONOLACTONE 25 MG TAB PO SCH (09:00)
[2018-03-14] MEDS ORDERED: CLOPIDOGREL BISULFATE 75 MG TAB PO SCH (09:00)
[2018-03-14] MEDS: FAMOTIDINE 20 MG TAB PO SCH ×2 (09:00→16:07)
[2018-03-14 10:11] LABS: CREATINE KINASE MB 2.2 ng/mL (0-5.0)
[2018-03-14] MEDS ORDERED: ALBUTEROL SULFATE HFA 8GM INHALATION AEROSOL INH PRN ×2 (10:15)
[2018-03-14] MEDS ORDERED: LACTULOSE SYRUP 20 GM/30 ML UDC PO PRN (10:30)
[2018-03-14 11:33] VITALS: BP 151/68
--- NOTE | 2018-03-14 13:32 | History and Physical ---
HISTORY OF PRESENT ILLNESS: He is a 67-year-old patient, had called 911 for right lower abdomen pain. The patient was stating that he has severe pain, so he called the ambulance and came to the emergency room. Patient has mild shortness of breath, which is chronic from his COPD. Patient has a history of frequent hospitalization and frequent use of the emergency room. Patient was evaluated in the emergency room and patient was found to have abnormal chest x-ray and was admitted with right lower quadrant abdominal pain, possible pneumonia, COPD exacerbation. Patient is in a stable condition right now. PAST MEDICAL HISTORY: Diabetes mellitus, hypertension, coronary artery disease, permanent pacemaker placement, and COPD. The patient abuse alcohol. PAST SURGICAL HISTORY: Coronary artery bypass surgery four years ago and AICD placed in September. SOCIAL HISTORY: The patient is using alcohol and smokes and he lives with his sister: FAMILY HISTORY: Diabetes mellitus. REVIEW OF SYSTEMS: As per history of present illness. PHYSICAL EXAMINATION VITAL SIGNS: Temperature 98, pulse rate 80, respirations 16, blood pressure 140/80. HEENT: Normocephalic, atraumatic. NECK: No JVD. No lymphadenopathy. LUNGS: Bilateral equal air entry. Rhonchi present. HEART: S1, S2, regular. Systolic murmur present. ABDOMEN: Soft. Bowel sounds present. NEUROLOGIC: No focal neurological deficit. LABORATORY EXAMINATION AND X-RAY EXAMINATION: Reviewed. ADMITTING IMPRESSION/DIAGNOSIS: Patient with right lower quadrant abdominal pain, possibly from muscle spasm and constipation. CT scam of the abdomen was done, which was negative for any pathology. The patient has minimum left lower lobe atelectasis The patient had a recent CT scan of the chest done in December and the patient has generalized severe atherosclerosis. PLAN: We will obtain pulmonary consultation, Dr. Rey, regarding IV Levaquin which we will discuss with Dr. Rey, and if he agrees to discontinue and give patient Lactulose and possible discharge home and refer to the discharge note. Job#: [id number] BONIFACIO
[2018-03-14 15:54] VITALS: BP 148/65
--- NOTE | 2018-03-14 16:03 | Consultation ---
DATE OF CONSULTATION: March 14, 2018 PULMONARY CONSULTATION A patient of Dr. Ar Horowitz, Dr. Sparrow, Dr. Rey. Admitted through the emergency room with abdominal pain, constipation. Patient's pain was in the right upper and lower quadrants. He has a history of hypertension, diabetes, COPD, congestive heart failure, coronary disease. He had bypass surgery and AICD placed in the past. He has a history of cardiomyopathy, congestive heart failure, diabetes, hypertension and COPD, though he smoked for only 10 years. Family history is positive for diabetes. His pulmonary functions a year ago revealed a restrictive pattern, but the FEV1 was quite compromised at 1.03 liters. His medications have included Lipitor, Plavix, Pepcid, glipizide, Lasix, Aldactone, inhaled albuterol. PHYSICAL EXAMINATION GENERAL: He is a well-developed white male looking somewhat older than his stated age. He is anxious to go home. He has had a large bowel movement and feels much better. There is no pain in the abdomen. VITAL SIGNS: Temperature 96.6, pulse 60, respirations 18, blood pressure 151/68. LUNGS: A few basilar rales. HEART: Regular rhythm. ABDOMEN: Nontender. EXTREMITIES: Trace edema extremities. Chest x-ray reveals what appears to be a density in the left lower lobe, but on CT scan the lungs are essentially clear with minimal atelectasis but an enlarged cardiac shadow and a pacemaker. Patient appears stable for discharge. Continue home medications. Antibiotics have been ordered for him and will be continued. Plan is for outpatient followup, a regular laxative program. O2 saturation was reported as 96% on room air. Patient does have a history of ejection fraction of 30% to 35%. Had a history of complete heart block and is pacemaker-dependent. History of carotid disease, obstructive sleep apnea and mild mitral regurgitation with pulmonary hypertension. Family history is also positive for cancer in a sister. Plan is to return home, use BiPAP at home, continue his home medications. Cough is productive of clear sputum, and the Levaquin should be . Thank you for this kind referral. Job#: [id number] EV
[2018-03-14] MEDS ORDERED: ATORVASTATIN 20 MG TAB PO SCH (21:00)
[2018-03-15] MEDS ORDERED: GLIPIZIDE 2.5 MG TABCR PO SCH (08:00)
[2018-03-15] MEDS ORDERED: GLIPIZIDE 5 MG TAB ER PO SCH (09:00)
== END 2018-03-14 17:31 | disposition home or self-care (01) ==
LOC: ER 01:08 → ERHOLD 03:36 → INTOOBSV 03:36 → MED/SURG2 04:30
PROVIDERS: ADMIT Internal Medicine; ATTEND Internal Medicine
DX: K59.00 Constipation, unspecified (principal); R10.31 Right lower quadrant pain; J44.1 Chronic obstructive pulmonary disease with (acute) exacerbation; S39.011A Strain of muscle, fascia and tendon of abdomen, initial encounter; I25.10 Atherosclerotic heart disease of native coronary artery without angina pectoris; Z95.1 Presence of aortocoronary bypass graft; Z95.0 Presence of cardiac pacemaker; R25.2 Cramp and spasm; Z83.3 Family history of diabetes mellitus
CPT/HCPCS: 36415; 71045; 74176; 80053; 81001; 82150; 82550; 82553; 82948; 83690; 83880; 84484; 85025; 87040; 93005; 94640 ×2; 96374; 97116; 97161; 99284; G0378; J1956; J2405

== ENCOUNTER 2018-06-18 13:25 | Emergency (ER) | payer MEDICARE ==
[~2018-06-18] VITALS: Ht 167.6 cm; Wt 85.7 kg
--- NOTE | 2018-06-18 14:08 | Diagnostic Imaging Report ---
EXAMINATION: CHEST SINGLE (PORTABLE) INDICATION: Shortness of breath. Dizziness. COMPARISON: March 14, 2018 FINDINGS: TUBES and LINES: Left chest cardiac device. Sternal wires. LUNGS: The lungs are hypoinflated. There is no evidence of pneumonia or pulmonary edema. PLEURA: No pleural effusion or pneumothorax. HEART AND MEDIASTINUM: Prominent heart size with pulmonary vascular congestion. BONES AND SOFT TISSUES: No acute osseous lesion. Soft tissues are unremarkable. UPPER ABDOMEN: No free air under the diaphragm. IMPRESSION: Cardiomegaly with pulmonary vascular congestion. Signed by: Dr. Leighton Henderson M.D. on 06/18/2018 2:05 PM
[2018-06-18 14:09] LABS: BASOPHILS % 0.5 % (0.0-1.0); EOSINOPHILS # (AUTO) 0.4 (0.0-0.4); EOSINOPHILS % 7.9 % (0.0-6.0); HEMATOCRIT 33.1 % (38.2-49.6); HEMOGLOBIN 11.3 g/dL (14.0-18.0); LYMPHOCYTES % 17.2 % (18.0-39.1); MEAN CORPUSCULAR HEMOGLOBIN 31.8 pg (28-32); MEAN CORPUSCULAR HGB CONC 34.1 g/dL (31-35); MEAN CORPUSCULAR VOLUME 93.2 fL (81-99); MONOCYTES # (AUTO) 0.4 (0.2-0.8); MONOCYTES % 6.5 % (4.4-11.3); NEUTROPHILS # (AUTO) 3.8 (2.1-6.9); NEUTROPHILS % 67.5 % (38.7-80.0); PLATELET COUNT 149 x10e3/uL (140-360); RED BLOOD COUNT 3.55 x10e6/uL (4.3-5.7); RED CELL DISTRIBUTION WIDTH 13.1 % (11.7-14.4)
[2018-06-18 14:19] LABS: INR 0.99; PARTIAL THROMBOPLASTIN TIME 26.5 seconds (23.8-35.5)
[2018-06-18 14:27] LABS: ALBUMIN 3.9 g/dL (3.5-5.0); ALBUMIN/GLOBULIN RATIO 1.6 (0.8-2.0); ANION GAP 12.9 mmol/L (8-16); CALCIUM 9.5 mg/dL (8.4-10.2); CREATININE, SERUM 1.6 mg/dL (0.72-1.25); POTASSIUM 3.9 mmol/L (3.5-5.1)
[2018-06-18 14:34] LABS: CREATINE KINASE MB 2.4 ng/mL (0-5.0)
[2018-06-18 16:30] LABS: BILIRUBIN,URINE NEGATIVE (NEGATIVE); CLARITY,URINE CLEAR (CLEAR); COLOR,URINE YELLOW (YELLOW); KETONES,URINE NEGATIVE (NEGATIVE); LEUKOCYTE ESTERASE ,URINE NEGATIVE (NEGATIVE); NITRITE,URINE NEGATIVE (NEGATIVE); PROTEIN,URINE DIPSTICK NEGATIVE (NEGATIVE); URINE UROBILINOGEN 0.2 mg/dL (0.2 - 1)
[2018-06-18 16:43] LABS: EPITHELIAL CELLS,URINE FEW /LPF
[2018-06-18] MEDS ORDERED: SODIUM CHLORIDE 0.9% 500ML 500 ML IV ONE (18:15)
--- NOTE | 2018-06-18 19:50 | Diagnostic Imaging Report ---
EXAM: CTA Chest WITH contrast / Pulmonary Embolus Study INDICATION: Shortness of breath COMPARISON: None. TECHNIQUE: Angiogram of the chest was obtained using a multidetector helical scanner after administration of IV contrast. Coronal and sagittal reformations were obtained. Pulmonary embolus protocol. IV CONTRAST: 100 mL Isovue-370 COMPLICATIONS: None RADIATION DOSE: Total DLP: 573 mGy*cm Estimated effective dose: (DLP x 0.015 x size factor) mSv CTDIvol has been reviewed. It is below the limits set by the Radiation Protocol Committee (RPC). Appropriate CT dose reduction techniques were utilized. FINDINGS: Lines and Tubes: Left chest wall ICD. Lower Neck: [place] artifact from ICD limits. Heart and Great Vessels: The aorta and main pulmonary artery measure 39 and 31 mm. respectively. No central pulmonary embolus. No significant pericardial effusion. Advanced coronary artery vascular calcifications and CABG changes. Moderate aortic vascular calcifications. Lymph Nodes: No suspicious adenopathy. Lungs: Mild biapical scarring with no pneumothorax. No pleural effusion. Moderate respiratory motion artifact limits evaluation. Dependent opacities in the lung bases statistically atelectasis. Trachea and central bronchi are unremarkable. Upper abdomen: Advanced vascular calcifications. Reflux of contrast into the liver. Bones and Soft Tissues: Sternotomy changes. Degenerative changes spine. IMPRESSION: 1. No central pulmonary embolus. 2. Reflux of contrast into the liver which can be seen in the setting of right heart failure or tricuspid insufficiency. 3. Gynecomastia. Signed by: Dr. Julius Retana MD on 06/18/2018 7:46 PM
[2018-06-18] MEDS ORDERED: IOPAMIDOL 370 MG/ML 200 ML INFUS..BTL INJ ONE (22:53)
[2018-06-18] MEDS ORDERED: SODIUM CHLORIDE 0.9% 50ML 50 ML ONE (22:53)
== END 2018-06-18 23:19 | disposition home or self-care (01) ==
LOC: ER 13:25
DX: R06.00 Dyspnea, unspecified (principal); J44.9 Chronic obstructive pulmonary disease, unspecified; L03.115 Cellulitis of right lower limb; I10 Essential (primary) hypertension; E11.9 Type 2 diabetes mellitus without complications; Z95.810 Presence of automatic (implantable) cardiac defibrillator
CPT/HCPCS: 36415; 71045; 71260; 80053; 81001; 82550; 82553; 83690; 83880; 84484; 85025; 85379; 85610; 85730; 87086; 93005; 93971; 99284; J7040; Q9967

== ENCOUNTER 2018-11-25 21:10 | Emergency (ER) | payer MEDICARE ==
[~2018-11-25] VITALS: Ht 167.6 cm; Wt 85.7 kg
[2018-11-25 21:34] LABS: BASOPHILS % 0.6 % (0.0-1.0); EOSINOPHILS # (AUTO) 0.7 (0.0-0.4); EOSINOPHILS % 9.5 % (0.0-6.0); HEMATOCRIT 32.4 % (38.2-49.6); HEMOGLOBIN 11.3 g/dL (14.0-18.0); LYMPHOCYTES # (AUTO) 1.6 (1.0-3.2); LYMPHOCYTES % 23.5 % (18.0-39.1); MEAN CORPUSCULAR HGB CONC 34.9 g/dL (31-35); MEAN CORPUSCULAR VOLUME 91.8 fL (81-99); MONOCYTES # (AUTO) 0.6 (0.2-0.8); MONOCYTES % 9.1 % (4.4-11.3); NEUTROPHILS # (AUTO) 3.9 (2.1-6.9); NEUTROPHILS % 56.9 % (38.7-80.0); PLATELET COUNT 179 x10e3/uL (140-360); RED BLOOD COUNT 3.53 x10e6/uL (4.3-5.7); RED CELL DISTRIBUTION WIDTH 13.9 % (11.7-14.4)
[2018-11-25 21:48] LABS: ALBUMIN 3.9 g/dL (3.5-5.0); ALBUMIN/GLOBULIN RATIO 1.5 (0.8-2.0); ANION GAP 16.5 mmol/L (8-16); CREATININE, SERUM 1.71 mg/dL (0.72-1.25); POTASSIUM 3.5 mmol/L (3.5-5.1)
[2018-11-25] MEDS ORDERED: MULTIVITAMINS- 12 INJECTION 10 ML, FOLIC ACID MDV 5 MG, THIAMINE HCL INJ 100 MG in SODI... IV ONE (22:00)
[2018-11-25] MEDS ORDERED: DEXTROSE 50% SYRINGE 50 ML IV ONE ×2 (22:11→22:15)
[2018-11-25 22:14] LABS: CREATINE KINASE MB 1.7 ng/mL (0-5.0)
--- NOTE | 2018-11-25 22:50 | Diagnostic Imaging Report ---
EXAMINATION: CHEST SINGLE (PORTABLE) INDICATION: ^fall ^[id number] ^[id number] ^Y COMPARISON: Chest CT dated 06/18/2018 FINDINGS: AP view TUBES and LINES: Stable left-sided cardiac device. LUNGS: Lungs are well inflated. Central vascular congestion. Hazy opacification of the left mid to lower lung field. PLEURA: No visible pneumothorax. HEART AND MEDIASTINUM: The cardiac silhouette is enlarged. Aorta is calcified and mildly tortuous. Median sternotomy wires and mediastinal surgical clips. BONES AND SOFT TISSUES: No acute osseous lesion. Soft tissues are unremarkable. UPPER ABDOMEN: No free air under the diaphragm. IMPRESSION: Enlarged cardiac silhouette and central vascular congestion. Haziness of the left mid to lower lung field is probably due to overlying soft tissue attenuation. Also in the differential is pulmonary contusion, considering history of fall. Suspected trace bilateral pleural effusions. Signed by: Dr. Miguel Aquino MD on 11/25/2018 10:46 PM
--- NOTE | 2018-11-25 22:50 | Diagnostic Imaging Report ---
Head and cervical spine CTs without IV contrast History: Trauma, fall Comparison studies: None Technique: Axial images were obtained from the brain and cervical spine. Coronal and sagittal images reconstructed from the axial data. Dose modulation, iterative reconstruction, and/or weight based adjustment of the mA/kV was utilized to reduce the radiation dose to as low as reasonably achievable. Intravenous contrast: None Findings: Head CT: Scalp: No abnormalities. Bones: No fractures, blastic or lytic lesions. Extra-axial spaces: No masses. No fluid collections. Brain sulci: Mildly prominent. Ventricles: Normal in size and configuration. No hydrocephalus. Parenchyma: No mass, acute hemorrhage or acute cortical infarct. Hypodensities along the anterior limbs of the internal capsules and in the subinsular regions may reflect chronic lacunar infarcts. Additional chronic lacunar infarcts in the right putamen, left thalamus and possibly in the left cerebellum. Focal hypodensity in in the right paramedian gopi may reflect age-indeterminate lacunar infarct. A few additional more subtle hypodensities in the supratentorial white matter are most compatible with chronic microvascular ischemic changes. Sellar/suprasellar region: No abnormalities. Craniocervical junction: The foramen magnum is patent. No Chiari one malformation. Included paranasal sinuses: Scattered nonspecific polypoid mucosal thickening throughout the maxillary sinuses, right frontal sinus and bilateral ethmoid air cells with nonspecific secretions within a hypoplastic left sphenoid sinus. Cervical spine CT: Fractures: None. Soft tissues: No gross abnormalities. Atlantoaxial articulation: Intact. Alignment: Normal lordosis. No scoliosis. Cervicomedullary junction: No abnormalities. The foramen magnum is patent. Vertebrae: No infection or neoplasm. Degenerative changes: Disc height is overall maintained. Mild uncovertebral facet arthrosis at C4-C5 and uncovertebral arthrosis at C5-C6. No significant canal or foraminal stenosis Incidental findings: Mild chronic rheumatoid changes at the mastoid tips. Scattered severe calcified atherosclerosis/arteriosclerosis. IMPRESSION: Head CT: 1. No acute post-traumatic abnormalities. 2. Age-indeterminate right paramedian gopi lacunar insult. 3. Mild chronic microvascular ischemic changes with small chronic lacunar infarcts as described. 4. Mild generalized brain volume loss. Cervical spine CT: 1. No cervical spine fracture or subluxation. 2. Cannot exclude ligament, spinal cord and or vascular abnormalities on the basis of this examination. Signed by: Dr. Saul Calzada M.D. on 11/25/2018 10:46 PM
--- NOTE | 2018-11-25 22:51 | Diagnostic Imaging Report ---
PELVIS AP 1-2 VIEWS - 1 view HISTORY: Pain COMPARISON: None available. FINDINGS: Bones: No acute displaced fracture. Osseous alignment is within normal limits. Joints: Degenerative changes of the hips, visualized lower lumbar spine, and SI joints. Soft tissues: Vascular calcifications. IMPRESSION: No definite evidence of acute displaced fracture or dislocation of the pelvis. Degenerative changes. Signed by: Dr. Miguel Aquino MD on 11/25/2018 10:48 PM
[2018-11-26] MEDS ORDERED: DEXTROSE 50% SYRINGE 50 ML IV ONE
--- NOTE | 2018-11-26 01:11 | Diagnostic Imaging Report ---
EXAM: CT Chest WITHOUT contrast INDICATION: ^EVAL FOR PULMONARY CONTUSION ^[id number] ^[id number] ^Y COMPARISON: Chest x-ray dated 11/25/2018 TECHNIQUE: Chest was scanned utilizing a multidetector helical scanner from the lung apex through the level of the adrenal glands without administration of IV contrast. Absence of intravenous contrast decreases sensitivity for detection of lymphadenopathy and vascular pathology. Coronal and sagittal reformations were obtained. Routine protocol was performed. IV CONTRAST: None COMPLICATIONS: None RADIATION DOSE: Total DLP: 537.65 mGy*cm Estimated effective dose: (DLP x 0.014 x size factor) mSv CTDIvol has been reviewed. It is below the limits set by the Radiation Protocol Committee (RPC). FINDINGS: LINES/ TUBES: Left chest wall cardiac device in place with distal leads terminating in right atrium, right ventricle, and coronary sinus. LUNGS AND AIRWAYS: Anterior left upper lobe scarring (series 3, image 32). Minimal left lower lobe patchy areas of haziness such as in series 3, image 86. There is also minimal posterior left upper lobe haziness (series 3, image 43). Airways are normal. PLEURA: The pleural spaces are clear. HEART AND MEDIASTINUM: The thyroid gland is normal. No mediastinal, hilar or axillary lymphadenopathy. Borderline cardiomegaly. There is no pericardial effusion. Severe atherosclerotic calcification of aorta and coronary arteries. Median sternotomy wires. UPPER ABDOMEN: Unremarkable. BONES: No acute osseous abnormality. Old fracture deformity of the anterior right fifth rib. SOFT TISSUES: Mild bilateral gynecomastia. IMPRESSION: Minimal posterior left upper lobe haziness as well as mild tiny areas of left lower lobe patchy hazy opacity, concerning for mild contusions in the setting of trauma. Other differential consideration is developing pneumonia in the appropriate clinical context. Signed by: Dr. Miguel Aquino MD on 11/26/2018 1:08 AM
--- NOTE | 2018-11-26 01:30 | NUR ---
meal provided to pt per md instructions.
--- NOTE | 2018-11-26 05:45 | NUR ---
INSTRUCTED TO PROVIDE SNACK. SNACK PROVIDED. PT CONSUMED APPLE JUICE X 2 CUPS, 1 CUP APPLE SAUCE, 1 CUP PUDDING AND HALF SANDWICH.
[2018-11-26 06:03] VITALS: BP 134/66
== END 2018-11-26 07:03 | disposition home or self-care (01) ==
LOC: ER 21:10
DX: F10.129 Alcohol abuse with intoxication, unspecified (principal); W01.0XXA Fall on same level from slipping, tripping and stumbling without subsequent striking against object, initial encounter; Y92.009 Unspecified place in unspecified non-institutional (private) residence as the place of occurrence of the external cause; I11.0 Hypertensive heart disease with heart failure; I50.9 Heart failure, unspecified; E11.9 Type 2 diabetes mellitus without complications; J45.909 Unspecified asthma, uncomplicated; Z86.73 Personal history of transient ischemic attack (TIA), and cerebral infarction without residual deficits; Z95.0 Presence of cardiac pacemaker; Z79.02 Long term (current) use of antithrombotics/antiplatelets; Z79.84 Long term (current) use of oral hypoglycemic drugs
CPT/HCPCS: 36415; 70450; 71045; 71250; 72125; 72170; 80053; 80320; 82550; 82553; 82948; 84484; 85025; 93005; 96374; 99284; J3411; J7030; J7799

== ENCOUNTER 2019-02-09 19:15 | Emergency (ER) | payer OTHER, MEDICARE ==
[~2019-02-09] VITALS: Ht 167.6 cm; Wt 85.7 kg
--- NOTE | 2019-02-09 20:43 | Diagnostic Imaging Report ---
KNEE LEFT THREE VIEWS - 3 views HISTORY: Pain. COMPARISON: None available. FINDINGS: Bones: No acute displaced fracture. Osseous alignment is within normal limits. Joints: The joint spaces are well-maintained. Soft tissues: Vascular calcifications. Mild prepatellar soft tissue swelling. IMPRESSION: No acute radiographic abnormality. Mild prepatellar soft tissue swelling, possibly due to prepatellar bursitis. Signed by: Geovanni Johnson DO on 02/09/2019 8:40 PM
== END 2019-02-09 20:52 | disposition home or self-care (01) ==
LOC: ER 19:15
DX: S80.02XA Contusion of left knee, initial encounter (principal); M25.462 Effusion, left knee; S76.112A Strain of left quadriceps muscle, fascia and tendon, initial encounter; W01.0XXA Fall on same level from slipping, tripping and stumbling without subsequent striking against object, initial encounter; Y92.008 Other place in unspecified non-institutional (private) residence as the place of occurrence of the external cause; I10 Essential (primary) hypertension; E11.9 Type 2 diabetes mellitus without complications; J44.9 Chronic obstructive pulmonary disease, unspecified; I50.9 Heart failure, unspecified; Z86.73 Personal history of transient ischemic attack (TIA), and cerebral infarction without residual deficits
CPT/HCPCS: 99283

== ENCOUNTER 2019-10-14 18:55 | Emergency (ER) | payer MEDICARE, OTHER ==
[~2019-10-14] VITALS: Ht 167.6 cm; Wt 85.7 kg
[2019-10-14 21:44] VITALS: BP 146/70
== END 2019-10-14 23:34 | disposition home or self-care (01) ==
LOC: ER 18:55
DX: M79.89 Other specified soft tissue disorders (principal); M19.031 Primary osteoarthritis, right wrist; M19.041 Primary osteoarthritis, right hand; I10 Essential (primary) hypertension; E11.9 Type 2 diabetes mellitus without complications; Z86.73 Personal history of transient ischemic attack (TIA), and cerebral infarction without residual deficits; Z95.810 Presence of automatic (implantable) cardiac defibrillator
CPT/HCPCS: 93971; 99284

== ENCOUNTER 2020-05-23 21:01 | Inpatient (IN) | payer MEDICARE ==
[~2020-05-23] VITALS: Ht 167.6 cm; Wt 92.5 kg
[2020-05-23] MEDS ORDERED: ACETAMINOPHEN 325 MG TAB PO STA (21:14)
[2020-05-23] MEDS ORDERED: SODIUM CHLORIDE 0.9% 500ML 500 ML IV ONE (21:15)
[2020-05-23] MEDS ORDERED: ASPIRIN 81 MG CHEW TAB PO ONE (21:15)
[2020-05-23 21:20] LABS: BASOPHILS % 0.4 % (0.0-1.0); EOSINOPHILS # (AUTO) 0.4 (0.0-0.4); EOSINOPHILS % 4.7 % (0.0-6.0); HEMATOCRIT 36.5 % (38.2-49.6); HEMOGLOBIN 12.2 g/dL (14.0-18.0); LYMPHOCYTES # (AUTO) 1.1 (1.0-3.2); LYMPHOCYTES % 13.3 % (18.0-39.1); MEAN CORPUSCULAR HEMOGLOBIN 31.4 pg (28-32); MEAN CORPUSCULAR HGB CONC 33.4 g/dL (31-35); MEAN CORPUSCULAR VOLUME 94.1 fL (81-99); MONOCYTES # (AUTO) 0.7 (0.2-0.8); MONOCYTES % 7.9 % (4.4-11.3); NEUTROPHILS # (AUTO) 6.2 (2.1-6.9); NEUTROPHILS % 73.6 % (38.7-80.0); PLATELET COUNT 164 x10e3/uL (140-360); RED BLOOD COUNT 3.88 x10e6/uL (4.3-5.7); RED CELL DISTRIBUTION WIDTH 13.6 % (11.7-14.4)
[2020-05-23] MEDS ORDERED: ALBUTEROL/IPRATROPIUM 3 ML NEB NEB STA (21:20)
[2020-05-23] MEDS ORDERED: MORPHINE SULFATE INJ 4 MG/ML INJ 1ML IV STA (21:20)
[2020-05-23] MEDS ORDERED: ONDANSETRON HCL INJ 2MG/ML 2ML 2 MG/ML VIAL IV STA (21:26)
[2020-05-23] MEDS ORDERED: ACETAMINOPHEN 325 MG TAB ONE (21:27)
[2020-05-23] MEDS: LEVOFLOXACIN 750MG/D5W 150ML 150 ML IV SCH (21:32)
[2020-05-23] MEDS ORDERED: ONDANSETRON HCL INJ 2MG/ML 2ML 2 MG/ML VIAL ONE (21:33)
[2020-05-23 21:46] LABS: ALBUMIN 3.6 g/dL (3.5-5.0); ALBUMIN/GLOBULIN RATIO 1.2 (0.8-2.0); ANION GAP 16.9 mmol/L (8-16); CALCIUM 8.9 mg/dL (8.4-10.2); CREATININE, SERUM 1.23 mg/dL (0.72-1.25); POTASSIUM 3.9 mmol/L (3.5-5.1)
[2020-05-23 21:52] LABS: CREATINE KINASE MB 1.9 ng/mL (0-5.0)
[2020-05-23] MEDS ORDERED: SODIUM CHLORIDE FLUSH 10 ML SYR INJ PRN (23:00)
[2020-05-23] MEDS ORDERED: ONDANSETRON HCL INJ 2MG/ML 2ML 2 MG/ML VIAL IV PRN (23:00)
[2020-05-23] MEDS ORDERED: MORPHINE SULFATE INJ 4 MG/ML INJ 1ML IV PRN (23:00)
[2020-05-24] VITALS (7 sets, daily range): BP systolic 111–143; BP diastolic 66–76
[2020-05-24] MEDS ORDERED: ACETAMINOPHEN 325 MG TAB PO PRN (00:30)
[2020-05-24] MEDS ORDERED: IPRAT-ALBUT 0.5-3 ML (03:50)
[2020-05-24] MEDS ORDERED: ENTRESTO 24 MG1 EACH PO (03:50)
[2020-05-24 07:53] LABS: HEMATOCRIT 37.3 % (38.2-49.6); HEMOGLOBIN 12.6 g/dL (14.0-18.0); LYMPHOCYTES # (AUTO) 0.3 (1.0-3.2); LYMPHOCYTES % 4.9 % (18.0-39.1); MEAN CORPUSCULAR HEMOGLOBIN 31.6 pg (28-32); MEAN CORPUSCULAR HGB CONC 33.8 g/dL (31-35); MEAN CORPUSCULAR VOLUME 93.5 fL (81-99); MONOCYTES % 0.6 % (4.4-11.3); NEUTROPHILS # (AUTO) 6.1 (2.1-6.9); NEUTROPHILS % 94.2 % (38.7-80.0); PLATELET COUNT 163 x10e3/uL (140-360); RED BLOOD COUNT 3.99 x10e6/uL (4.3-5.7); RED CELL DISTRIBUTION WIDTH 13.2 % (11.7-14.4)
[2020-05-24] MEDS ORDERED: SODIUM CHLORIDE 0.9% 250ML 250 ML ONE (08:10)
[2020-05-24] MEDS: LEVOFLOXACIN 750MG/D5W 150ML 150 ML IV SCH (08:18)
[2020-05-24 08:24] LABS: ALBUMIN 3.4 g/dL (3.5-5.0); ANION GAP 15.2 mmol/L (8-16); CALCIUM 8.6 mg/dL (8.4-10.2); CREATININE, SERUM 1.26 mg/dL (0.72-1.25)
[2020-05-24 08:32] LABS: POTASSIUM 5.2 mmol/L (3.5-5.1)
[2020-05-24 08:50] LABS: CREATINE KINASE MB 1.9 ng/mL (0-4.3)
[2020-05-24] MEDS ORDERED: DEXTROSE 50% SYRINGE 50 ML IV PRN (10:15)
[2020-05-24] MEDS ORDERED: ALBUTEROL/IPRATROPIUM 3 ML NEB NEB PRN (10:15)
[2020-05-24] MEDS ORDERED: GUAIFENESIN/CODEINE 10 ML CUP PO PRN (10:15)
[2020-05-24] MEDS: FUROSEMIDE INJ 10 MG/ML 4 ML VIAL IV SCH (11:16)
[2020-05-24] MEDS: METHYLPREDNISOLONE SOD SUCC 40 MG/ML VIAL 1ML IV SCH ×2 (11:16→21:39)
[2020-05-24] MEDS: INSULIN LISPRO 100 UNIT/1 ML 3ML VIAL SQ SCH ×3 (12:35→21:40)
[2020-05-24] MEDS: ALBUTEROL/IPRATROPIUM 3 ML NEB NEB SCH ×2 (13:00→19:46)
[2020-05-24 14:18] LABS: CREATINE KINASE 55 IU/L (30-200)
[2020-05-24] MEDS: FAMOTIDINE 20 MG TAB PO SCH (17:02)
[2020-05-24] MEDS: ATORVASTATIN 20 MG TAB PO SCH (21:39)
[2020-05-25] VITALS (8 sets, daily range): BP systolic 104–166; BP diastolic 54–70
[2020-05-25] MEDS: ALBUTEROL/IPRATROPIUM 3 ML NEB NEB SCH ×4 (01:55→19:16)
[2020-05-25 07:12] LABS: ANION GAP 13.3 mmol/L (8-16); CALCIUM 8.7 mg/dL (8.4-10.2); CREATININE, SERUM 1.25 mg/dL (0.72-1.25); POTASSIUM 4.3 mmol/L (3.5-5.1)
[2020-05-25] MEDS: INSULIN LISPRO 100 UNIT/1 ML 3ML VIAL SQ SCH ×4 (07:30→21:36)
[2020-05-25] MEDS ORDERED: SODIUM CHLORIDE 0.9% 250ML 250 ML ONE (08:34)
[2020-05-25] MEDS: VALSARTAN/SACUBITRIL 24MG/26MG 1 EA TAB PO SCH (08:57)
[2020-05-25] MEDS: SPIRONOLACTONE 25 MG TAB PO SCH (08:57)
[2020-05-25] MEDS: FAMOTIDINE 20 MG TAB PO SCH ×2 (08:57→16:52)
[2020-05-25] MEDS: FUROSEMIDE INJ 10 MG/ML 4 ML VIAL IV SCH (08:57)
[2020-05-25] MEDS: METHYLPREDNISOLONE SOD SUCC 40 MG/ML VIAL 1ML IV SCH ×2 (08:57→20:38)
[2020-05-25] MEDS: GLIPIZIDE 5 MG TAB ER PO SCH (08:57)
[2020-05-25] MEDS: LEVOFLOXACIN 750MG/D5W 150ML 150 ML IV SCH (08:57)
[2020-05-25] MEDS: CLOPIDOGREL BISULFATE 75 MG TAB PO SCH (08:58)
[2020-05-25] MEDS ORDERED: SACUBITRIL PO SCH (09:00)
[2020-05-25] MEDS ORDERED: VALSARTAN PO SCH (09:00)
[2020-05-25] MEDS ORDERED: ONDANSETRON HCL 4 MG ORAL DISINTEGRATING TAB SL PRN (14:00)
[2020-05-25] MEDS: ATORVASTATIN 20 MG TAB PO SCH (20:38)
[2020-05-26] VITALS (7 sets, daily range): BP systolic 104–139; BP diastolic 50–63
[2020-05-26] MEDS: ALBUTEROL/IPRATROPIUM 3 ML NEB NEB SCH ×4 (01:00→19:28)
[2020-05-26] MEDS: FUROSEMIDE INJ 10 MG/ML 4 ML VIAL IV SCH (09:03)
[2020-05-26] MEDS: METHYLPREDNISOLONE SOD SUCC 40 MG/ML VIAL 1ML IV SCH ×2 (09:06→20:35)
[2020-05-26] MEDS: GLIPIZIDE 5 MG TAB ER PO SCH (09:07)
[2020-05-26] MEDS: SPIRONOLACTONE 25 MG TAB PO SCH (09:07)
[2020-05-26] MEDS: VALSARTAN/SACUBITRIL 24MG/26MG 1 EA TAB PO SCH (09:07)
[2020-05-26] MEDS: FAMOTIDINE 20 MG TAB PO SCH ×2 (09:08→17:27)
[2020-05-26] MEDS: CLOPIDOGREL BISULFATE 75 MG TAB PO SCH (09:08)
[2020-05-26] MEDS: LEVOFLOXACIN 250 MG TAB PO SCH (09:08)
[2020-05-26] MEDS: INSULIN LISPRO 100 UNIT/1 ML 3ML VIAL SQ SCH ×4 (09:11→21:15)
[2020-05-26] MEDS: ATORVASTATIN 20 MG TAB PO SCH (20:35)
[2020-05-27] VITALS: BP 135/57
[2020-05-27] MEDS: ALBUTEROL/IPRATROPIUM 3 ML NEB NEB SCH ×3 (01:20→13:00)
[2020-05-27 04:00] VITALS: BP 110/55
[2020-05-27 07:29] VITALS: BP 124/58
[2020-05-27 08:07] VITALS: BP 124/58
[2020-05-27] MEDS: INSULIN LISPRO 100 UNIT/1 ML 3ML VIAL SQ SCH ×3 (08:30→16:45)
[2020-05-27] MEDS: FAMOTIDINE 20 MG TAB PO SCH ×2 (08:55→17:01)
[2020-05-27] MEDS: LEVOFLOXACIN 250 MG TAB PO SCH (08:55)
[2020-05-27] MEDS: CLOPIDOGREL BISULFATE 75 MG TAB PO SCH (08:55)
[2020-05-27] MEDS: VALSARTAN/SACUBITRIL 24MG/26MG 1 EA TAB PO SCH (08:56)
[2020-05-27] MEDS: SPIRONOLACTONE 25 MG TAB PO SCH (08:56)
[2020-05-27] MEDS: GLIPIZIDE 5 MG TAB ER PO SCH (08:56)
[2020-05-27] MEDS: METHYLPREDNISOLONE SOD SUCC 40 MG/ML VIAL 1ML IV SCH (08:58)
[2020-05-27] MEDS: FUROSEMIDE INJ 10 MG/ML 4 ML VIAL IV SCH (08:58)
[2020-05-27 11:06] VITALS: BP 129/64
[2020-05-27 15:15] VITALS: BP 130/56
[2020-05-27] MEDS ORDERED: DUO (17:34)
[2020-05-27] MEDS ORDERED: TYLENOL # 31 EA (17:36)
[2020-05-27] MEDS ORDERED: LASIX40 MG PO (17:36)
[2020-05-27] MEDS ORDERED: PREDNISONE10 MG PO (17:37)
[2020-05-27] MEDS ORDERED: PROAIR HFA INH8.5 GM (17:37)
== END 2020-05-27 18:35 | disposition home or self-care (01) | DRG 190 ==
LOC: ER 21:05 → ERHOLD 22:53 → MED/SURG3 05-24 00:47
PROVIDERS: ADMIT Internal Medicine; ATTEND Internal Medicine
DX: J44.1 Chronic obstructive pulmonary disease with (acute) exacerbation (principal); I50.23 Acute on chronic systolic (congestive) heart failure; I11.0 Hypertensive heart disease with heart failure; E11.9 Type 2 diabetes mellitus without complications; J44.9 Chronic obstructive pulmonary disease, unspecified; F10.20 Alcohol dependence, uncomplicated; I25.10 Atherosclerotic heart disease of native coronary artery without angina pectoris; Z88.1 Allergy status to other antibiotic agents; Z88.8 Allergy status to other drugs, medicaments and biological substances; Z95.1 Presence of aortocoronary bypass graft; Z87.442 Personal history of urinary calculi; Z95.810 Presence of automatic (implantable) cardiac defibrillator; Z91.14 Patient's other noncompliance with medication regimen; F17.210 Nicotine dependence, cigarettes, uncomplicated; Z11.59 Encounter for screening for other viral diseases; M79.641 Pain in right hand
CPT/HCPCS: 36415; 71045; 80048; 80053; 82550; 82553; 82948; 83605; 83880; 84484; 85025; 87040; 87071; 87205; 93005; 93306; 94640; 99284; J1940; J2270; J2405; J2920; J7040; J7050; U0002

== ENCOUNTER 2020-07-22 13:53 | Inpatient (IN) | payer MEDICARE ==
[~2020-07-22] VITALS: Ht 167.6 cm; Wt 92.5 kg
[~2020-07-22 13:53] MED LIST changes: +DUO; +ENTRESTO 24 MG1 EACH PO; +IPRAT-ALBUT 0.5-3 ML; +PREDNISONE10 MG PO; +PROAIR HFA INH8.5 GM; +TYLENOL # 31 EA
[2020-07-22 14:45] LABS: BASOPHILS % 0.2 % (0.0-1.0); HEMATOCRIT 40.6 % (38.2-49.6); HEMOGLOBIN 13.5 g/dL (14.0-18.0); LYMPHOCYTES # (AUTO) 0.3 (1.0-3.2); LYMPHOCYTES % 5.8 % (18.0-39.1); MEAN CORPUSCULAR HEMOGLOBIN 30.3 pg (28-32); MEAN CORPUSCULAR HGB CONC 33.3 g/dL (31-35); MEAN CORPUSCULAR VOLUME 91.2 fL (81-99); MONOCYTES # (AUTO) 0.1 (0.2-0.8); MONOCYTES % 2.1 % (4.4-11.3); NEUTROPHILS # (AUTO) 4.7 (2.1-6.9); NEUTROPHILS % 91.7 % (38.7-80.0); PLATELET COUNT 227 x10e3/uL (140-360); RED BLOOD COUNT 4.45 x10e6/uL (4.3-5.7); RED CELL DISTRIBUTION WIDTH 12.8 % (11.7-14.4)
[2020-07-22 14:49] LABS: INR 1.07; PARTIAL THROMBOPLASTIN TIME 29.7 seconds (23.8-35.5); PROTHROMBIN TIME 14.5 seconds (11.9-14.5)
[2020-07-22 14:57] LABS: ALBUMIN 3.5 g/dL (3.5-5.0); ALBUMIN/GLOBULIN RATIO 0.8 (0.8-2.0); ANION GAP 21.9 mmol/L (8-16); CALCIUM 9.2 mg/dL (8.4-10.2); CREATININE, SERUM 2.15 mg/dL (0.72-1.25); MAGNESIUM 2.6 MG/DL (1.3-2.1); POTASSIUM 3.9 mmol/L (3.5-5.1)
[2020-07-22 15:04] LABS: CREATINE KINASE MB 4.7 ng/mL (0-5.0)
[2020-07-22] MEDS: CEFTRIAXONE SOD 1 GM/NS 50 ML 50 ML IV SCH (16:30)
[2020-07-22] MEDS: AZITHROMYCIN 500MG/NS 250 ML 250 ML IV SCH (16:45)
[2020-07-22] MEDS ORDERED: ONDANSETRON HCL INJ 2MG/ML 2ML 2 MG/ML VIAL IV PRN (16:45)
[2020-07-22] MEDS ORDERED: ZOLPIDEM TARTRATE 5 MG TAB PO PRN (16:45)
[2020-07-22] MEDS ORDERED: FUROSEMIDE INJ 10 MG/ML 4 ML VIAL IV ONE (16:45)
[2020-07-22] MEDS ORDERED: ACETAMINOPHEN 325 MG TAB PO PRN ×2 (16:45→22:45)
[2020-07-22] MEDS ORDERED: CEFTRIAXONE SOD 1 GM VIAL ONE (17:06)
[2020-07-22 17:35] VITALS: BP 118/58
[2020-07-22 17:51] VITALS: BP 118/58
[2020-07-22] MEDS ORDERED: DEXTROSE 50% SYRINGE 50 ML IV PRN ×2 (18:00→22:45)
[2020-07-22 18:02] VITALS: BP 118/58
[2020-07-22 20:00] VITALS: BP 116/46
[2020-07-22 20:43] VITALS: BP 116/46
[2020-07-22] MEDS: ASCORBIC ACID 500 MG TAB PO SCH (20:55)
[2020-07-22] MEDS: INSULIN REGULAR, HUMAN 100 UNIT/1 ML 3ML VIAL SQ SCH (20:56)
[2020-07-22] MEDS: HEPARIN SOD (PORCINE) 5,000 UNIT/ML VIAL SC SCH (20:58)
[2020-07-22] MEDS: ALBUTEROL SULFATE HFA 8GM INHALATION AEROSOL INH PRN (22:36)
[2020-07-22] MEDS: LORAZEPAM 0.5 MG TAB PO PRN (22:39)
[2020-07-22] MEDS ORDERED: LIDOCAINE 4% PATCH TP PRN (22:45)
[2020-07-22] MEDS ORDERED: SIMETHICONE 80 MG CHEW PO PRN (22:45)
[2020-07-22] MEDS ORDERED: POTASSIUM CHLORIDE 20 MEQ TAB CR PO PRN (22:45)
[2020-07-22] MEDS ORDERED: GUAIFENESIN/CODEINE 10 ML CUP PO PRN (22:45)
[2020-07-22] MEDS ORDERED: CHLORASEPTIC SPRAY 177 ML BTL MM PRN (22:45)
[2020-07-22] MEDS ORDERED: DIPHENHYDRAMINE HCL 25 MG CAP PO PRN (22:45)
[2020-07-22] MEDS ORDERED: POLYETHYLENE GLYCOL 3350 17 GM PACK PO PRN (22:45)
[2020-07-23] VITALS (8 sets, daily range): BP systolic 97–114; BP diastolic 51–64
[2020-07-23 00:31] LABS: CREATINE KINASE MB 10.5 ng/mL (0-5.0)
[2020-07-23] MEDS: ALBUTEROL SULFATE HFA 8GM INHALATION AEROSOL INH PRN (02:59)
[2020-07-23] MEDS: LORAZEPAM 0.5 MG TAB PO PRN (03:02)
[2020-07-23 06:08] LABS: EOSINOPHILS % 0.1 % (0.0-6.0); HEMATOCRIT 37.2 % (38.2-49.6); HEMOGLOBIN 12.7 g/dL (14.0-18.0); LYMPHOCYTES # (AUTO) 0.7 (1.0-3.2); LYMPHOCYTES % 9.5 % (18.0-39.1); MEAN CORPUSCULAR HEMOGLOBIN 31.4 pg (28-32); MEAN CORPUSCULAR HGB CONC 34.1 g/dL (31-35); MEAN CORPUSCULAR VOLUME 91.9 fL (81-99); MONOCYTES # (AUTO) 0.4 (0.2-0.8); MONOCYTES % 4.8 % (4.4-11.3); NEUTROPHILS # (AUTO) 6.4 (2.1-6.9); NEUTROPHILS % 85.1 % (38.7-80.0); PLATELET COUNT 220 x10e3/uL (140-360); RED BLOOD COUNT 4.05 x10e6/uL (4.3-5.7); RED CELL DISTRIBUTION WIDTH 12.6 % (11.7-14.4)
[2020-07-23 06:23] LABS: ALBUMIN/GLOBULIN RATIO 0.8 (0.8-2.0); ANION GAP 16.6 mmol/L (8-16); CALCIUM 8.4 mg/dL (8.4-10.2); CHOL/HDL RATIO 3.5 (3.9-4.7); CREATININE, SERUM 1.85 mg/dL (0.72-1.25); POTASSIUM 3.6 mmol/L (3.5-5.1)
[2020-07-23 06:43] LABS: CREATINE KINASE MB 16.6 ng/mL (0-5.0)
[2020-07-23] MEDS: INSULIN REGULAR, HUMAN 100 UNIT/1 ML 3ML VIAL SQ SCH ×4 (07:30→21:00)
[2020-07-23] MEDS: PANTOPRAZOLE SOD 40 MG TABEC PO SCH (08:05)
[2020-07-23] MEDS: ZINC SULFATE 220 MG CAP PO SCH (09:23)
[2020-07-23] MEDS: FUROSEMIDE INJ 10 MG/ML 4 ML VIAL IV SCH (09:23)
[2020-07-23] MEDS: DEXAMETHASONE SOD PHOS 10 MG/1 ML VIAL IV SCH (09:23)
[2020-07-23] MEDS: ASCORBIC ACID 500 MG TAB PO SCH ×2 (09:23→17:35)
[2020-07-23] MEDS: SODIUM BICARBONATE 650 MG TAB PO SCH ×2 (09:23→17:35)
[2020-07-23] MEDS: CLOPIDOGREL BISULFATE 75 MG TAB PO SCH (09:23)
[2020-07-23] MEDS: VALSARTAN/SACUBITRIL 24MG/26MG 1 EA TAB PO SCH (09:24)
[2020-07-23] MEDS: HEPARIN SOD (PORCINE) 5,000 UNIT/ML VIAL SC SCH ×2 (09:41→21:00)
[2020-07-23] MEDS ORDERED: FUROSEMIDE INJ 10 MG/ML 4 ML VIAL IV ONE (10:15)
[2020-07-23] MEDS: GUAIFENESIN 600 MG TAB PO PRN (12:00)
[2020-07-23] MEDS: CEFTRIAXONE SOD 1 GM/NS 50 ML 50 ML IV SCH (16:30)
[2020-07-23] MEDS ORDERED: SODIUM CHLORIDE 0.9% 250ML 250 ML ONE (16:33)
[2020-07-23] MEDS: AZITHROMYCIN 500MG/NS 250 ML 250 ML IV SCH (17:35)
[2020-07-23] MEDS: ENOXAPARIN SOD INJ 40 MG/0.4 ML SYR SC SCH (17:35)
[2020-07-23] MEDS: ATORVASTATIN 20 MG TAB PO SCH (21:00)
[2020-07-23] MEDS: MELATONIN 5 MG TABLET PO PRN (21:39)
[2020-07-24] VITALS (8 sets, daily range): BP systolic 93–109; BP diastolic 56–79
[2020-07-24 06:08] LABS: BASOPHILS % 0.2 % (0.0-1.0); EOSINOPHILS % 0.3 % (0.0-6.0); HEMATOCRIT 35.9 % (38.2-49.6); HEMOGLOBIN 11.8 g/dL (14.0-18.0); LYMPHOCYTES # (AUTO) 0.7 (1.0-3.2); LYMPHOCYTES % 10.1 % (18.0-39.1); MEAN CORPUSCULAR HEMOGLOBIN 30.7 pg (28-32); MEAN CORPUSCULAR HGB CONC 32.9 g/dL (31-35); MEAN CORPUSCULAR VOLUME 93.5 fL (81-99); MONOCYTES # (AUTO) 0.4 (0.2-0.8); MONOCYTES % 5.7 % (4.4-11.3); NEUTROPHILS # (AUTO) 5.5 (2.1-6.9); NEUTROPHILS % 83.1 % (38.7-80.0); PLATELET COUNT 211 x10e3/uL (140-360); RED BLOOD COUNT 3.84 x10e6/uL (4.3-5.7); RED CELL DISTRIBUTION WIDTH 12.7 % (11.7-14.4)
[2020-07-24 06:33] LABS: ALBUMIN 2.7 g/dL (3.5-5.0); ALBUMIN/GLOBULIN RATIO 0.8 (0.8-2.0); ANION GAP 16.8 mmol/L (8-16); CREATININE, SERUM 1.59 mg/dL (0.72-1.25); POTASSIUM 3.8 mmol/L (3.5-5.1)
[2020-07-24] MEDS: INSULIN REGULAR, HUMAN 100 UNIT/1 ML 3ML VIAL SQ SCH ×4 (07:30→20:32)
[2020-07-24] MEDS: PANTOPRAZOLE SOD 40 MG TABEC PO SCH (07:30)
[2020-07-24] MEDS: HEPARIN SOD (PORCINE) 5,000 UNIT/ML VIAL SC SCH ×2 (08:50→20:32)
[2020-07-24] MEDS: VALSARTAN/SACUBITRIL 24MG/26MG 1 EA TAB PO SCH (09:00)
[2020-07-24] MEDS: ASCORBIC ACID 500 MG TAB PO SCH ×2 (09:12→17:36)
[2020-07-24] MEDS: SODIUM BICARBONATE 650 MG TAB PO SCH ×2 (09:12→17:36)
[2020-07-24] MEDS: CLOPIDOGREL BISULFATE 75 MG TAB PO SCH (09:12)
[2020-07-24] MEDS: ZINC SULFATE 220 MG CAP PO SCH (09:12)
[2020-07-24] MEDS: FUROSEMIDE INJ 10 MG/ML 4 ML VIAL IV SCH (09:12)
[2020-07-24] MEDS: DEXAMETHASONE SOD PHOS 10 MG/1 ML VIAL IV SCH (09:12)
[2020-07-24] MEDS: FINASTERIDE 5 MG TAB PO SCH (11:30)
[2020-07-24] MEDS: TAMSULOSIN HCL 0.4 MG CAP PO SCH ×2 (11:30→20:30)
[2020-07-24] MEDS: GUAIFENESIN 600 MG TAB PO PRN (11:47)
[2020-07-24] MEDS: DOCUSATE SODIUM 100 MG CAP PO PRN (12:00)
[2020-07-24] MEDS ORDERED: REMDESIVIR 200MG/NS 100ML 200 MG IV SCH (15:30)
[2020-07-24] MEDS: AZITHROMYCIN 500MG/NS 250 ML 250 ML IV SCH (16:22)
[2020-07-24] MEDS: ENOXAPARIN INJ 80 MG/0.8 ML SYR SC SCH (17:00)
[2020-07-24] MEDS: ENOXAPARIN SOD INJ 40 MG/0.4 ML SYR SC SCH (17:36)
[2020-07-24] MEDS: ATORVASTATIN 20 MG TAB PO SCH (20:30)
[2020-07-25] VITALS (7 sets, daily range): BP systolic 103–124; BP diastolic 45–73
[2020-07-25] MEDS: INSULIN REGULAR, HUMAN 100 UNIT/1 ML 3ML VIAL SQ SCH ×4 (07:30→20:45)
[2020-07-25] MEDS: PANTOPRAZOLE SOD 40 MG TABEC PO SCH (08:16)
[2020-07-25] MEDS ORDERED: AZITHROMYCIN 500MG/NS 250 ML 250 ML IV SCH (09:00)
[2020-07-25] MEDS: HEPARIN SOD (PORCINE) 5,000 UNIT/ML VIAL SC SCH (09:00)
[2020-07-25] MEDS: ENOXAPARIN INJ 80 MG/0.8 ML SYR SC SCH ×2 (09:00→17:10)
[2020-07-25] MEDS ORDERED: ZINC SULFATE 220 MG CAP PO SCH (09:00)
[2020-07-25] MEDS: ASCORBIC ACID 500 MG TAB PO SCH ×2 (09:11→17:10)
[2020-07-25] MEDS: SODIUM BICARBONATE 650 MG TAB PO SCH ×2 (09:11→17:10)
[2020-07-25] MEDS: DEXAMETHASONE SOD PHOS 10 MG/1 ML VIAL IV SCH (09:11)
[2020-07-25] MEDS: CLOPIDOGREL BISULFATE 75 MG TAB PO SCH (09:11)
[2020-07-25] MEDS: FINASTERIDE 5 MG TAB PO SCH (09:11)
[2020-07-25] MEDS: VALSARTAN/SACUBITRIL 24MG/26MG 1 EA TAB PO SCH (09:11)
[2020-07-25] MEDS: FUROSEMIDE INJ 10 MG/ML 4 ML VIAL IV SCH (09:11)
[2020-07-25] MEDS: CEFTRIAXONE SOD 2 GM/NS 100 ML 100 ML IV SCH (09:11)
[2020-07-25 10:21] LABS: BASOPHILS % 0.1 % (0.0-1.0); EOSINOPHILS % 0.4 % (0.0-6.0); HEMATOCRIT 37.1 % (38.2-49.6); HEMOGLOBIN 12.4 g/dL (14.0-18.0); LYMPHOCYTES # (AUTO) 0.5 (1.0-3.2); MEAN CORPUSCULAR HEMOGLOBIN 30.4 pg (28-32); MEAN CORPUSCULAR HGB CONC 33.4 g/dL (31-35); MEAN CORPUSCULAR VOLUME 90.9 fL (81-99); MONOCYTES # (AUTO) 0.3 (0.2-0.8); MONOCYTES % 4.1 % (4.4-11.3); NEUTROPHILS # (AUTO) 7.2 (2.1-6.9); NEUTROPHILS % 87.9 % (38.7-80.0); PLATELET COUNT 242 x10e3/uL (140-360); RED BLOOD COUNT 4.08 x10e6/uL (4.3-5.7); RED CELL DISTRIBUTION WIDTH 12.6 % (11.7-14.4)
[2020-07-25 10:44] LABS: ANION GAP 17.9 mmol/L (8-16); CREATININE, SERUM 1.26 mg/dL (0.72-1.25); POTASSIUM 3.9 mmol/L (3.5-5.1)
[2020-07-25] MEDS: ZINC SULFATE 220 MG CAP PO SCH (11:26)
[2020-07-25 12:12] LABS: ALBUMIN 2.8 g/dL (3.5-5.0); ALBUMIN/GLOBULIN RATIO 0.8 (0.8-2.0); ANION GAP 17.9 mmol/L (8-16); CALCIUM 8.1 mg/dL (8.4-10.2); CREATININE, SERUM 1.28 mg/dL (0.72-1.25); POTASSIUM 3.9 mmol/L (3.5-5.1)
[2020-07-25] MEDS: AZITHROMYCIN 500MG/NS 250 ML 250 ML IV SCH (16:39)
[2020-07-25] MEDS: ALBUTEROL SULFATE HFA 8GM INHALATION AEROSOL INH PRN (18:54)
[2020-07-25] MEDS: TAMSULOSIN HCL 0.4 MG CAP PO SCH (20:45)
[2020-07-25] MEDS: ATORVASTATIN 20 MG TAB PO SCH (20:45)
[2020-07-26] VITALS (8 sets, daily range): BP systolic 108–127; BP diastolic 52–69
[2020-07-26 05:53] LABS: BASOPHILS % 0.1 % (0.0-1.0); EOSINOPHILS % 0.3 % (0.0-6.0); HEMATOCRIT 37.2 % (38.2-49.6); HEMOGLOBIN 12.7 g/dL (14.0-18.0); LYMPHOCYTES # (AUTO) 0.7 (1.0-3.2); MEAN CORPUSCULAR HEMOGLOBIN 30.8 pg (28-32); MEAN CORPUSCULAR HGB CONC 34.1 g/dL (31-35); MEAN CORPUSCULAR VOLUME 90.3 fL (81-99); MONOCYTES # (AUTO) 0.5 (0.2-0.8); NEUTROPHILS # (AUTO) 5.4 (2.1-6.9); NEUTROPHILS % 79.4 % (38.7-80.0); PLATELET COUNT 248 x10e3/uL (140-360); RED BLOOD COUNT 4.12 x10e6/uL (4.3-5.7); RED CELL DISTRIBUTION WIDTH 12.3 % (11.7-14.4)
[2020-07-26] MEDS: INSULIN REGULAR, HUMAN 100 UNIT/1 ML 3ML VIAL SQ SCH ×4 (08:04→21:00)
[2020-07-26 09:08] LABS: ANION GAP 14.2 mmol/L (8-16); BLOOD UREA NITROGEN 27 mg/dL (7-26); BUN/CREATININE RATIO 26 (6-25); CARBON DIOXIDE 22 mmol/L (22-29); CHLORIDE 106 mmol/L (98-107); CREATININE, SERUM 1.02 mg/dL (0.72-1.25); EST GLOMERULAR FILTRATION RATE > 60 ML/MIN (60-); GLUCOSE 136 mg/dL (74-118); POTASSIUM 4.2 mmol/L (3.5-5.1); SODIUM 138 mmol/L (136-145)
[2020-07-26] MEDS: VALSARTAN/SACUBITRIL 24MG/26MG 1 EA TAB PO SCH (09:10)
[2020-07-26] MEDS: ASCORBIC ACID 500 MG TAB PO SCH ×2 (09:10→16:26)
[2020-07-26] MEDS: FINASTERIDE 5 MG TAB PO SCH (09:10)
[2020-07-26] MEDS: DEXAMETHASONE SOD PHOS 10 MG/1 ML VIAL IV SCH (09:10)
[2020-07-26] MEDS: ENOXAPARIN INJ 80 MG/0.8 ML SYR SC SCH ×2 (09:10→16:26)
[2020-07-26] MEDS: PANTOPRAZOLE SOD 40 MG TABEC PO SCH (09:10)
[2020-07-26] MEDS: SODIUM BICARBONATE 650 MG TAB PO SCH ×2 (09:10→16:26)
[2020-07-26] MEDS: CLOPIDOGREL BISULFATE 75 MG TAB PO SCH (09:10)
[2020-07-26] MEDS: ZINC SULFATE 220 MG CAP PO SCH (09:10)
[2020-07-26] MEDS: CEFTRIAXONE SOD 2 GM/NS 100 ML 100 ML IV SCH (09:10)
[2020-07-26] MEDS: FUROSEMIDE INJ 10 MG/ML 4 ML VIAL IV SCH (09:10)
[2020-07-26 09:22] LABS: ALANINE AMINOTRANSFERASE 28 IU/L (0-55); ALBUMIN 2.8 g/dL (3.5-5.0); ALBUMIN/GLOBULIN RATIO 0.8 (0.8-2.0); ALKALINE PHOSPHATASE 64 IU/L (40-150)
[2020-07-26] MEDS ORDERED: ZINC SULFATE 220 MG CAP PO SCH (09:30)
[2020-07-26] MEDS ORDERED: FUROSEMIDE INJ 10 MG/ML 4 ML VIAL IV ONE (14:30)
[2020-07-26] MEDS ORDERED: REMDESIVIR 200MG/NS 100ML 200 MG IV ONE (16:00)
[2020-07-26] MEDS: AZITHROMYCIN 500MG/NS 250 ML 250 ML IV SCH (19:49)
[2020-07-26] MEDS: ATORVASTATIN 20 MG TAB PO SCH (20:54)
[2020-07-26] MEDS: TAMSULOSIN HCL 0.4 MG CAP PO SCH (20:54)
[2020-07-26] MEDS: MELATONIN 5 MG TABLET PO PRN (20:55)
[2020-07-26] MEDS: BENZONATATE 100 MG CAP PO PRN (20:55)
[2020-07-26] MEDS: DOCUSATE SODIUM 100 MG CAP PO PRN (20:55)
[2020-07-27] VITALS (8 sets, daily range): BP systolic 108–147; BP diastolic 59–72
[2020-07-27 06:18] LABS: BASOPHILS % 0.1 % (0.0-1.0); EOSINOPHILS # (AUTO) 0.1 (0.0-0.4); EOSINOPHILS % 0.7 % (0.0-6.0); HEMOGLOBIN 12.1 g/dL (14.0-18.0); LYMPHOCYTES # (AUTO) 0.8 (1.0-3.2); LYMPHOCYTES % 12.4 % (18.0-39.1); MEAN CORPUSCULAR HEMOGLOBIN 31.1 pg (28-32); MEAN CORPUSCULAR HGB CONC 33.6 g/dL (31-35); MEAN CORPUSCULAR VOLUME 92.5 fL (81-99); MONOCYTES # (AUTO) 0.5 (0.2-0.8); NEUTROPHILS # (AUTO) 5.1 (2.1-6.9); NEUTROPHILS % 75.8 % (38.7-80.0); PLATELET COUNT 242 x10e3/uL (140-360); RED BLOOD COUNT 3.89 x10e6/uL (4.3-5.7); RED CELL DISTRIBUTION WIDTH 12.6 % (11.7-14.4)
[2020-07-27 07:02] LABS: ALANINE AMINOTRANSFERASE 39 IU/L (0-55); ALBUMIN 2.6 g/dL (3.5-5.0); ALBUMIN/GLOBULIN RATIO 0.8 (0.8-2.0); ALKALINE PHOSPHATASE 61 IU/L (40-150); ANION GAP 11.2 mmol/L (8-16); BLOOD UREA NITROGEN 29 mg/dL (7-26); BUN/CREATININE RATIO 26 (6-25); CALCIUM 7.7 mg/dL (8.4-10.2); CARBON DIOXIDE 27 mmol/L (22-29); CHLORIDE 103 mmol/L (98-107); EST GLOMERULAR FILTRATION RATE > 60 ML/MIN (60-); GLUCOSE 124 mg/dL (74-118); POTASSIUM 4.2 mmol/L (3.5-5.1); SODIUM 137 mmol/L (136-145)
[2020-07-27] MEDS: INSULIN REGULAR, HUMAN 100 UNIT/1 ML 3ML VIAL SQ SCH ×4 (08:14→20:58)
[2020-07-27] MEDS: PANTOPRAZOLE SOD 40 MG TABEC PO SCH (09:22)
[2020-07-27] MEDS: SODIUM BICARBONATE 650 MG TAB PO SCH ×2 (09:23→17:19)
[2020-07-27] MEDS: FUROSEMIDE INJ 10 MG/ML 4 ML VIAL IV SCH (09:23)
[2020-07-27] MEDS: FINASTERIDE 5 MG TAB PO SCH (09:23)
[2020-07-27] MEDS: CLOPIDOGREL BISULFATE 75 MG TAB PO SCH (09:23)
[2020-07-27] MEDS: DEXAMETHASONE SOD PHOS 10 MG/1 ML VIAL IV SCH (09:23)
[2020-07-27] MEDS: CEFTRIAXONE SOD 2 GM/NS 100 ML 100 ML IV SCH (09:23)
[2020-07-27] MEDS: VALSARTAN/SACUBITRIL 24MG/26MG 1 EA TAB PO SCH (09:23)
[2020-07-27] MEDS: ENOXAPARIN INJ 80 MG/0.8 ML SYR SC SCH ×2 (09:24→17:19)
[2020-07-27] MEDS: ASCORBIC ACID 500 MG TAB PO SCH ×2 (09:24→17:19)
[2020-07-27] MEDS: ZINC SULFATE 220 MG CAP PO SCH (09:24)
[2020-07-27] MEDS: REMDESIVIR 100MG/NS 100ML 100 MG IV SCH (17:19)
[2020-07-27] MEDS: ATORVASTATIN 20 MG TAB PO SCH (20:57)
[2020-07-27] MEDS: DOCUSATE SODIUM 100 MG CAP PO PRN (20:57)
[2020-07-27] MEDS: MELATONIN 5 MG TABLET PO PRN (20:57)
[2020-07-27] MEDS: BENZONATATE 100 MG CAP PO PRN (20:57)
[2020-07-27] MEDS: TAMSULOSIN HCL 0.4 MG CAP PO SCH (20:57)
[2020-07-28] VITALS (7 sets, daily range): BP systolic 108–133; BP diastolic 55–64
[2020-07-28] MEDS: INSULIN REGULAR, HUMAN 100 UNIT/1 ML 3ML VIAL SQ SCH ×4 (07:30→21:23)
[2020-07-28] MEDS: PANTOPRAZOLE SOD 40 MG TABEC PO SCH (08:50)
[2020-07-28 08:51] LABS: BASOPHILS % 0.1 % (0.0-1.0); EOSINOPHILS # (AUTO) 0.1 (0.0-0.4); EOSINOPHILS % 0.9 % (0.0-6.0); HEMATOCRIT 38.4 % (38.2-49.6); HEMOGLOBIN 12.9 g/dL (14.0-18.0); LYMPHOCYTES # (AUTO) 1.2 (1.0-3.2); LYMPHOCYTES % 15.8 % (18.0-39.1); MEAN CORPUSCULAR HEMOGLOBIN 30.4 pg (28-32); MEAN CORPUSCULAR HGB CONC 33.6 g/dL (31-35); MEAN CORPUSCULAR VOLUME 90.6 fL (81-99); MONOCYTES # (AUTO) 0.5 (0.2-0.8); MONOCYTES % 7.3 % (4.4-11.3); NEUTROPHILS # (AUTO) 5.4 (2.1-6.9); NEUTROPHILS % 73.2 % (38.7-80.0); PLATELET COUNT 262 x10e3/uL (140-360); RED BLOOD COUNT 4.24 x10e6/uL (4.3-5.7); RED CELL DISTRIBUTION WIDTH 12.7 % (11.7-14.4)
[2020-07-28] MEDS: FUROSEMIDE INJ 10 MG/ML 4 ML VIAL IV SCH (08:51)
[2020-07-28] MEDS: CARVEDILOL 3.125 MG TAB PO SCH (08:51)
[2020-07-28] MEDS: CEFTRIAXONE SOD 2 GM/NS 100 ML 100 ML IV SCH (08:51)
[2020-07-28] MEDS: DEXAMETHASONE SOD PHOS 10 MG/1 ML VIAL IV SCH (08:51)
[2020-07-28] MEDS: FINASTERIDE 5 MG TAB PO SCH (08:52)
[2020-07-28] MEDS: VALSARTAN/SACUBITRIL 24MG/26MG 1 EA TAB PO SCH (08:52)
[2020-07-28] MEDS: CLOPIDOGREL BISULFATE 75 MG TAB PO SCH (08:52)
[2020-07-28] MEDS: ASCORBIC ACID 500 MG TAB PO SCH ×2 (08:53→17:34)
[2020-07-28] MEDS: ENOXAPARIN 30 MG/0.3 ML SYR SC SCH ×2 (08:53→17:34)
[2020-07-28] MEDS: SODIUM BICARBONATE 650 MG TAB PO SCH ×2 (08:53→17:34)
[2020-07-28] MEDS: ZINC SULFATE 220 MG CAP PO SCH (08:53)
[2020-07-28 09:11] LABS: ALANINE AMINOTRANSFERASE 38 IU/L (0-55); ALBUMIN 2.7 g/dL (3.5-5.0); ALBUMIN/GLOBULIN RATIO 0.9 (0.8-2.0); ALKALINE PHOSPHATASE 58 IU/L (40-150); ANION GAP 13.9 mmol/L (8-16); BLOOD UREA NITROGEN 27 mg/dL (7-26); BUN/CREATININE RATIO 26 (6-25); CALCIUM 7.9 mg/dL (8.4-10.2); CARBON DIOXIDE 23 mmol/L (22-29); CHLORIDE 105 mmol/L (98-107); CREATININE, SERUM 1.02 mg/dL (0.72-1.25); EST GLOMERULAR FILTRATION RATE > 60 ML/MIN (60-); GLUCOSE 178 mg/dL (74-118); POTASSIUM 3.9 mmol/L (3.5-5.1); SODIUM 138 mmol/L (136-145)
[2020-07-28] MEDS: REMDESIVIR 100MG/NS 100ML 100 MG IV SCH (15:17)
[2020-07-28] MEDS: ATORVASTATIN 20 MG TAB PO SCH (21:07)
[2020-07-28] MEDS: TAMSULOSIN HCL 0.4 MG CAP PO SCH (21:07)
[2020-07-29] VITALS: BP 114/67
[2020-07-29 04:00] VITALS: BP 130/67
[2020-07-29] MEDS: INSULIN REGULAR, HUMAN 100 UNIT/1 ML 3ML VIAL SQ SCH ×3 (07:30→16:30)
[2020-07-29 07:54] VITALS: BP 152/83
[2020-07-29] MEDS: PANTOPRAZOLE SOD 40 MG TABEC PO SCH (08:00)
[2020-07-29 08:22] VITALS: BP 152/83
[2020-07-29 09:16] LABS: BASOPHILS % 0.2 % (0.0-1.0); EOSINOPHILS # (AUTO) 0.1 (0.0-0.4); EOSINOPHILS % 1.1 % (0.0-6.0); HEMATOCRIT 41.2 % (38.2-49.6); HEMOGLOBIN 13.6 g/dL (14.0-18.0); LYMPHOCYTES # (AUTO) 1.4 (1.0-3.2); LYMPHOCYTES % 15.5 % (18.0-39.1); MEAN CORPUSCULAR HEMOGLOBIN 30.4 pg (28-32); MEAN CORPUSCULAR VOLUME 92.2 fL (81-99); MONOCYTES # (AUTO) 0.8 (0.2-0.8); MONOCYTES % 8.6 % (4.4-11.3); NEUTROPHILS # (AUTO) 6.3 (2.1-6.9); NEUTROPHILS % 71.9 % (38.7-80.0); PLATELET COUNT 278 x10e3/uL (140-360); RED BLOOD COUNT 4.47 x10e6/uL (4.3-5.7); RED CELL DISTRIBUTION WIDTH 12.8 % (11.7-14.4)
[2020-07-29 09:38] LABS: ALANINE AMINOTRANSFERASE 51 IU/L (0-55); ALBUMIN 2.9 g/dL (3.5-5.0); ALBUMIN/GLOBULIN RATIO 0.9 (0.8-2.0); ALKALINE PHOSPHATASE 67 IU/L (40-150); BLOOD UREA NITROGEN 24 mg/dL (7-26); BUN/CREATININE RATIO 23 (6-25); CALCIUM 8.2 mg/dL (8.4-10.2); CARBON DIOXIDE 23 mmol/L (22-29); CHLORIDE 103 mmol/L (98-107); CREATININE, SERUM 1.04 mg/dL (0.72-1.25); EST GLOMERULAR FILTRATION RATE > 60 ML/MIN (60-); GLUCOSE 139 mg/dL (74-118); SODIUM 137 mmol/L (136-145)
[2020-07-29] MEDS: FUROSEMIDE INJ 10 MG/ML 4 ML VIAL IV SCH (09:39)
[2020-07-29] MEDS: ZINC SULFATE 220 MG CAP PO SCH (09:39)
[2020-07-29] MEDS: DEXAMETHASONE SOD PHOS 10 MG/1 ML VIAL IV SCH (09:39)
[2020-07-29] MEDS: ASCORBIC ACID 500 MG TAB PO SCH (09:39)
[2020-07-29] MEDS: ENOXAPARIN 30 MG/0.3 ML SYR SC SCH (09:39)
[2020-07-29] MEDS: CLOPIDOGREL BISULFATE 75 MG TAB PO SCH (09:39)
[2020-07-29] MEDS: FINASTERIDE 5 MG TAB PO SCH (09:39)
[2020-07-29] MEDS: SODIUM BICARBONATE 650 MG TAB PO SCH (09:39)
[2020-07-29] MEDS: VALSARTAN/SACUBITRIL 24MG/26MG 1 EA TAB PO SCH (09:39)
[2020-07-29] MEDS: CARVEDILOL 3.125 MG TAB PO SCH (09:40)
[2020-07-29 11:35] VITALS: BP 118/60
[2020-07-29] MEDS: CEFTRIAXONE SOD 2 GM/NS 100 ML 100 ML IV SCH (12:42)
[2020-07-29] MEDS ORDERED: ONDANSETRON HCL 4 MG ORAL DISINTEGRATING TAB PO PRN (12:45)
[2020-07-29 15:38] VITALS: BP 116/67
[2020-07-29] MEDS: REMDESIVIR 100MG/NS 100ML 100 MG IV SCH (16:00)
[2020-07-29] MEDS ORDERED: FLOMAX0.4 MG PO (16:23)
[2020-07-29] MEDS ORDERED: FINASTERIDE5 MG PO (16:24)
[2020-07-29] MEDS ORDERED: COREG3.125 MG PO (16:24)
[2020-07-29] MEDS ORDERED: DEXAMETHASONE6 MG PO (16:26)
== END 2020-07-29 17:20 | disposition home or self-care (01) | DRG 177 ==
LOC: ER 14:17 → ERHOLD 16:24 → MED/SURG3 17:24
PROVIDERS: ADMIT Internal Medicine; ATTEND Internal Medicine
PROC: 8E0ZXY6 Isolation (ICD-10-PCS; principal; 2020-07-22)
PROC: XW043E5 Introduction of Remdesivir Anti-infective into Central Vein, Percutaneous Approach, New Technology Group 5 (ICD-10-PCS; 2020-07-26)
DX: U07.1 COVID-19 (principal); J96.00 Acute respiratory failure, unspecified whether with hypoxia or hypercapnia; J12.9 Viral pneumonia, unspecified; I50.21 Acute systolic (congestive) heart failure; J12.89 Other viral pneumonia; N17.9 Acute kidney failure, unspecified; N39.0 Urinary tract infection, site not specified; I13.0 Hypertensive heart and chronic kidney disease with heart failure and stage 1 through stage 4 chronic kidney disease, or unspecified chronic kidney disease; J44.0 Chronic obstructive pulmonary disease with (acute) lower respiratory infection; N18.30 Chronic kidney disease, stage 3 unspecified; I25.10 Atherosclerotic heart disease of native coronary artery without angina pectoris; Z95.1 Presence of aortocoronary bypass graft; N40.0 Benign prostatic hyperplasia without lower urinary tract symptoms; R33.9 Retention of urine, unspecified; Z95.0 Presence of cardiac pacemaker
CPT/HCPCS: 36415; 71045; 80048; 80053; 80061; 82550; 82553; 82948; 83735; 83880; 84484; 85025; 85610; 85730; 87040; 93005; 93306; 94664; 97139; 99285; J0456; J0696; J1100; J1644; J1650; J1817; J1940; J7050; U0002

== ENCOUNTER 2020-11-05 21:15 | Observation (INO) | payer MEDICARE ==
[~2020-11-05] VITALS: Ht 167.6 cm; Wt 92.5 kg
[~2020-11-05 21:15] MED LIST changes: +COREG3.125 MG PO; +DEXAMETHASONE6 MG PO; +FINASTERIDE5 MG PO
[2020-11-05] MEDS ORDERED: ALBUTEROL/IPRATROPIUM 3 ML NEB NEB ONE (21:30)
[2020-11-05 22:06] LABS: BASOPHILS # (AUTO) 0.1 (0.0-0.1); BASOPHILS % 0.9 % (0.0-1.0); EOSINOPHILS # (AUTO) 0.5 (0.0-0.4); EOSINOPHILS % 9.8 % (0.0-6.0); HEMATOCRIT 35.4 % (38.2-49.6); LYMPHOCYTES # (AUTO) 1.3 (1.0-3.2); LYMPHOCYTES % 23.4 % (18.0-39.1); MEAN CORPUSCULAR HEMOGLOBIN 31.6 pg (28-32); MEAN CORPUSCULAR HGB CONC 33.9 g/dL (31-35); MEAN CORPUSCULAR VOLUME 93.2 fL (81-99); MONOCYTES # (AUTO) 0.5 (0.2-0.8); MONOCYTES % 8.9 % (4.4-11.3); NEUTROPHILS # (AUTO) 3.1 (2.1-6.9); NEUTROPHILS % 56.8 % (38.7-80.0); PLATELET COUNT 167 x10e3/uL (140-360); RED CELL DISTRIBUTION WIDTH 14.4 % (11.7-14.4)
[2020-11-05 22:16] LABS: INR 0.97; PARTIAL THROMBOPLASTIN TIME 28.2 seconds (23.8-35.5); PROTHROMBIN TIME 13.5 seconds (11.9-14.5)
[2020-11-05 22:25] LABS: BLOOD UREA NITROGEN 16 mg/dL (7-26); BUN/CREATININE RATIO 14 (6-25); CALCIUM 8.3 mg/dL (8.4-10.2); CARBON DIOXIDE 19 mmol/L (22-29); CHLORIDE 103 mmol/L (98-107); CREATININE, SERUM 1.15 mg/dL (0.72-1.25); EST GLOMERULAR FILTRATION RATE > 60 ML/MIN (60-); GLUCOSE 107 mg/dL (74-118); SODIUM 135 mmol/L (136-145)
[2020-11-05 22:45] LABS: CREATINE KINASE MB 1.6 ng/mL (0-5.0)
[2020-11-05] MEDS ORDERED: ONDANSETRON HCL INJ 2MG/ML 2ML 2 MG/ML VIAL IV STA (23:45)
[2020-11-05] MEDS ORDERED: FENTANYL 50 MCG/HR PATCH TOP SCH (23:45)
[2020-11-06] VITALS (9 sets, daily range): BP systolic 93–155; BP diastolic 45–72
[2020-11-06] MEDS ORDERED: FUROSEMIDE INJ 10 MG/ML 4 ML VIAL IV ONE
[2020-11-06] MEDS ORDERED: FENTANYL CITRATE/PF 100MCG/2 ML INJ IV ONE (00:15)
[2020-11-06] MEDS ORDERED: METHYLPREDNISOLONE SOD SUCC 125 MG/2ML VIAL IV ONE (00:30)
[2020-11-06] MEDS: MORPHINE SULFATE INJ 2 MG/ML SYR IV PRN ×4 (03:48→21:05)
[2020-11-06] MEDS: ONDANSETRON HCL INJ 2MG/ML 2ML 2 MG/ML VIAL IV PRN ×4 (03:48→21:05)
[2020-11-06] MEDS: ALBUTEROL/IPRATROPIUM 3 ML NEB NEB SCH ×6 (03:58→23:10)
[2020-11-06] MEDS: METHYLPREDNISOLONE SOD SUCC 40 MG/ML VIAL 1ML IV SCH ×3 (05:12→18:21)
[2020-11-06 08:55] LABS: CREATINE KINASE MB 2.7 ng/mL (0-5.0)
[2020-11-06] MEDS: FUROSEMIDE INJ 10 MG/ML 4 ML VIAL IV SCH ×2 (09:31→17:35)
[2020-11-06] MEDS ORDERED: LIDOCAINE 1% 5ML-MPF INJ NR ×2 (10:00→11:00)
[2020-11-06] MEDS: DOXYCYCLINE HYCLATE TABLET 100 MG TAB PO SCH ×2 (10:00→17:35)
[2020-11-06] MEDS: CARVEDILOL 3.125 MG TAB PO SCH ×2 (10:00→17:35)
[2020-11-06] MEDS ORDERED: CEFTRIAXONE SOD 1 GM/50 ML BAG IV SCH (10:00)
[2020-11-06] MEDS: GABAPENTIN 100 MG CAP PO SCH ×3 (10:00→20:54)
[2020-11-06] MEDS ORDERED: HYDRALAZINE HCL 20 MG/ML VIAL IV PRN (10:00)
[2020-11-06] MEDS ORDERED: CHLORDIAZEPOXIDE HCL 25 MG CAP PO PRN (10:00)
[2020-11-06] MEDS ORDERED: DEXTROSE 50% SYRINGE 50 ML IV PRN (10:00)
[2020-11-06] MEDS ORDERED: LIDOCAINE HCL 1% LOCAL INJ 20 ML VIAL INJ ONE (11:30)
[2020-11-06] MEDS: CHLORDIAZEPOXIDE HCL 10 MG CAP PO SCH ×2 (12:00→18:21)
[2020-11-06] MEDS: INSULIN LISPRO 100 UNIT/1 ML 3ML VIAL SQ SCH ×3 (12:05→20:56)
[2020-11-06] MEDS: CEFTRIAXONE SOD 1 GM in SODIUM CHLORIDE 0.9% 50ML 50 ML IV SCH (12:15)
[2020-11-06] MEDS ORDERED: FENTANYL CITRATE/PF 100MCG/2 ML INJ ONE (12:56)
[2020-11-06] MEDS ORDERED: LIDOCAINE HCL 2% LOCAL INJ 5 ML SDV VIAL INJ ONE (13:44)
[2020-11-06] MEDS ORDERED: PROPOFOL IV EMULSION 10 MG/ML 20 ML VIAL ONE (13:44)
[2020-11-06] MEDS: FAMOTIDINE 20 MG TAB PO SCH (16:30)
[2020-11-06] MEDS ORDERED: TAMSULOSIN HCL 0.4 MG CAP PO SCH (21:00)
[2020-11-06] MEDS ORDERED: ATORVASTATIN 20 MG TAB PO SCH (21:00)
[2020-11-07] MEDS: ALBUTEROL/IPRATROPIUM 3 ML NEB NEB SCH ×3 (03:30→11:24)
[2020-11-07 05:38] VITALS: BP_SYST 112; BP_SYST 93; BP_DIAS 45; BP_DIAS 50
[2020-11-07] MEDS: METHYLPREDNISOLONE SOD SUCC 40 MG/ML VIAL 1ML IV SCH ×2 (06:00)
[2020-11-07] MEDS: CHLORDIAZEPOXIDE HCL 10 MG CAP PO SCH ×2 (06:00)
[2020-11-07 06:44] LABS: CREATINE KINASE MB 5.3 ng/mL (0-5.0)
[2020-11-07 07:19] LABS: BASOPHILS % 0.1 % (0.0-1.0); EOSINOPHILS % 0.2 % (0.0-6.0); HEMATOCRIT 34.6 % (38.2-49.6); HEMOGLOBIN 11.8 g/dL (14.0-18.0); LYMPHOCYTES # (AUTO) 0.3 (1.0-3.2); LYMPHOCYTES % 3.6 % (18.0-39.1); MEAN CORPUSCULAR HGB CONC 34.1 g/dL (31-35); MEAN CORPUSCULAR VOLUME 93.8 fL (81-99); MONOCYTES # (AUTO) 0.2 (0.2-0.8); MONOCYTES % 2.3 % (4.4-11.3); NEUTROPHILS # (AUTO) 8.5 (2.1-6.9); PLATELET COUNT 140 x10e3/uL (140-360); RED BLOOD COUNT 3.69 x10e6/uL (4.3-5.7); RED CELL DISTRIBUTION WIDTH 13.8 % (11.7-14.4)
[2020-11-07 08:16] VITALS: BP 128/56
[2020-11-07] MEDS: INSULIN LISPRO 100 UNIT/1 ML 3ML VIAL SQ SCH (08:30)
[2020-11-07] MEDS: GABAPENTIN 100 MG CAP PO SCH (08:34)
[2020-11-07] MEDS: DOXYCYCLINE HYCLATE TABLET 100 MG TAB PO SCH (08:34)
[2020-11-07] MEDS: FAMOTIDINE 20 MG TAB PO SCH (08:36)
[2020-11-07] MEDS: CARVEDILOL 3.125 MG TAB PO SCH (08:39)
[2020-11-07 08:44] LABS: ALBUMIN 3.6 g/dL (3.5-5.0); ALBUMIN/GLOBULIN RATIO 1.3 (0.8-2.0); ANION GAP 19.5 mmol/L (8-16); CALCIUM 8.3 mg/dL (8.4-10.2); CREATININE, SERUM 1.47 mg/dL (0.72-1.25); POTASSIUM 4.5 mmol/L (3.5-5.1)
[2020-11-07] MEDS: FUROSEMIDE INJ 10 MG/ML 4 ML VIAL IV SCH (08:44)
[2020-11-07 08:57] VITALS: BP 128/56
[2020-11-07] MEDS ORDERED: FINASTERIDE 5 MG TAB PO SCH (09:00)
[2020-11-07 09:06] LABS: CREATINE KINASE MB 5.3 ng/mL (0-5.0)
[2020-11-07 09:20] LABS: MAGNESIUM 2.1 MG/DL (1.3-2.1); PHOSPHORUS 3.2 MG/DL (2.3-4.7)
[2020-11-07 09:41] LABS: THYROID STIMULATING HORMONE 0.449 uIU/mL (0.350-4.940)
[2020-11-07] MEDS ORDERED: CYANOCOBALAMIN INJ 1,000 MCG/ML VIAL IM SCH (10:15)
[2020-11-07] MEDS ORDERED: FOLIC ACID 1 MG TAB PO SCH (10:15)
[2020-11-07] MEDS ORDERED: THIAMINE HCL INJ 100 MG/ML 2ML VIAL IV ONE (10:15)
[2020-11-07] MEDS ORDERED: SODIUM CHLORIDE 0.9% 250ML 250 ML ONE (10:26)
[2020-11-07] MEDS: CEFTRIAXONE SOD 1 GM in SODIUM CHLORIDE 0.9% 50ML 50 ML IV SCH (10:41)
== END 2020-11-07 11:40 | disposition home or self-care (01) ==
LOC: ER 21:25 → ERHOLD 11-06 00:53 → MED/SURG3 11-06 02:27
PROVIDERS: ADMIT Internal Medicine; ATTEND Internal Medicine
DX: S43.014A Anterior dislocation of right humerus, initial encounter (principal); J44.1 Chronic obstructive pulmonary disease with (acute) exacerbation; I50.23 Acute on chronic systolic (congestive) heart failure; F10.220 Alcohol dependence with intoxication, uncomplicated; Y90.6 Blood alcohol level of 120-199 mg/100 ml; S00.83XA Contusion of other part of head, initial encounter; I13.0 Hypertensive heart and chronic kidney disease with heart failure and stage 1 through stage 4 chronic kidney disease, or unspecified chronic kidney disease; N18.30 Chronic kidney disease, stage 3 unspecified; Z95.1 Presence of aortocoronary bypass graft; E11.9 Type 2 diabetes mellitus without complications; F17.200 Nicotine dependence, unspecified, uncomplicated; I25.10 Atherosclerotic heart disease of native coronary artery without angina pectoris; R25.1 Tremor, unspecified; Z88.8 Allergy status to other drugs, medicaments and biological substances; Z20.822 Contact with and (suspected) exposure to COVID-19; W10.8XXA Fall (on) (from) other stairs and steps, initial encounter; Z95.810 Presence of automatic (implantable) cardiac defibrillator; Y93.01 Activity, walking, marching and hiking; Y92.008 Other place in unspecified non-institutional (private) residence as the place of occurrence of the external cause; E53.8 Deficiency of other specified B group vitamins; Z91.19 Patient's noncompliance with other medical treatment and regimen
CPT/HCPCS: 23655; 36415 ×3; 70450; 70486; 71045; 72125; 73020; 73030 ×2; 73060; 73200; 80048; 80053; 80320; 82140; 82550 ×3; 82553 ×3; 82607; 82746; 82948 ×2; 83036; 83735; 83880 ×2; 84100; 84443; 84484 ×3; 85025 ×2; 85610; 85730; 93005; 94640 ×3; 99284; G0378 ×2; J0696; J1940 ×2; J2001 ×2; J2270; J2405; J2704; J2920 ×2; J2930; J3010; J3411; J3420; J7050; U0002

== ENCOUNTER 2021-02-05 05:48 | Observation (INO) | payer MEDICARE ==
[~2021-02-05] VITALS: Ht 167.6 cm; Wt 92.5 kg
[~2021-02-05 05:48] MED LIST changes: -PROAIR HFA INH8.5 GM; +PROAIR HFA INH8.5 GM PO
[2021-02-05 06:22] LABS: BASOPHILS # (AUTO) 0.1 (0.0-0.1); BASOPHILS % 0.6 % (0.0-1.0); EOSINOPHILS # (AUTO) 0.3 (0.0-0.4); EOSINOPHILS % 4.1 % (0.0-6.0); HEMATOCRIT 36.3 % (38.2-49.6); HEMOGLOBIN 12.4 g/dL (14.0-18.0); LYMPHOCYTES # (AUTO) 0.8 (1.0-3.2); LYMPHOCYTES % 9.7 % (18.0-39.1); MEAN CORPUSCULAR HEMOGLOBIN 31.2 pg (28-32); MEAN CORPUSCULAR HGB CONC 34.2 g/dL (31-35); MEAN CORPUSCULAR VOLUME 91.2 fL (81-99); MONOCYTES # (AUTO) 0.4 (0.2-0.8); MONOCYTES % 4.5 % (4.4-11.3); NEUTROPHILS # (AUTO) 6.6 (2.1-6.9); NEUTROPHILS % 80.6 % (38.7-80.0); PLATELET COUNT 203 x10e3/uL (140-360); RED BLOOD COUNT 3.98 x10e6/uL (4.3-5.7); RED CELL DISTRIBUTION WIDTH 13.1 % (11.7-14.4)
[2021-02-05] MEDS ORDERED: IPRATROPIUM BROMIDE 0.02% 2.5 ML NEB NEB ONE (06:30)
[2021-02-05] MEDS ORDERED: LEVALBUTEROL HCL SOLN NEBU 0.63 MG/3 ML NEB INH ONE (06:30)
[2021-02-05] MEDS ORDERED: MULTIVITAMINS- 12 INJECTION 10 ML, FOLIC ACID MDV 5 MG, THIAMINE HCL INJ 100 MG in SODI... IV ONE (06:45)
[2021-02-05 07:10] LABS: ALBUMIN 3.7 g/dL (3.5-5.0); ALBUMIN/GLOBULIN RATIO 1.3 (0.8-2.0); ANION GAP 20.8 mmol/L (8-16); CALCIUM 8.7 mg/dL (8.4-10.2); CREATININE, SERUM 1.58 mg/dL (0.72-1.25); POTASSIUM 3.8 mmol/L (3.5-5.1)
[2021-02-05 07:20] LABS: CREATINE KINASE MB 1.6 ng/mL (0-5.0)
[2021-02-05] MEDS ORDERED: METHYLPREDNISOLONE SOD SUCC 125 MG/2ML VIAL IV STA (08:14)
[2021-02-05 08:16] LABS: AMPHETAMINES SCREEN,URINE NEGATIVE (NEGATIVE); BENZODIAZEPINES SCREEN,URINE NEGATIVE (NEGATIVE); PHENCYCLIDINE SCREEN,URINE NEGATIVE (NEGATIVE)
[2021-02-05 08:17] LABS: CLARITY,URINE CLEAR (CLEAR); COLOR,URINE YELLOW (YELLOW); KETONES,URINE NEGATIVE (NEGATIVE); LEUKOCYTE ESTERASE ,URINE NEGATIVE (NEGATIVE); NITRITE,URINE NEGATIVE (NEGATIVE); PROTEIN,URINE DIPSTICK NEGATIVE (NEGATIVE); URINE UROBILINOGEN 0.2 mg/dL (0.2 - 1)
[2021-02-05] MEDS ORDERED: FAMOTIDINE 20 MG/2 ML VIAL IV SCH (08:30)
[2021-02-05] MEDS ORDERED: ONDANSETRON HCL INJ 2MG/ML 2ML 2 MG/ML VIAL IV PRN (08:30)
[2021-02-05] MEDS ORDERED: ASPIRIN 325 MG TAB EC PO ONE (08:30)
[2021-02-05 08:33] LABS: RBC,URINE 0-5 /HPF (0-5)
[2021-02-05 08:34] LABS: BACTERIA,URINE FEW /HPF; EPITHELIAL CELLS,URINE FEW /LPF; MUCUS,URINE FEW (RARE)
[2021-02-05] MEDS ORDERED: CLOPIDOGREL BISULFATE 75 MG TAB PO SCH (09:00)
[2021-02-05] MEDS: ASPIRIN 81 MG ENTERIC COATED PO SCH (09:00)
[2021-02-05] MEDS ORDERED: GLIPIZIDE ER2.5 MG PO (10:58)
[2021-02-05] MEDS ORDERED: ALLOPURINOL100 MG PO (10:58)
[2021-02-05] MEDS ORDERED: DEXTROSE 50% SYRINGE 50 ML IV PRN (11:00)
[2021-02-05] MEDS ORDERED: FUROSEMIDE INJ 10 MG/ML 4 ML VIAL IV NR (11:00)
[2021-02-05] MEDS ORDERED: CETIRIZINE HCL10 MG PO (11:01)
[2021-02-05] MEDS ORDERED: ASPIRIN EC81 MG PO (11:01)
[2021-02-05 12:02] VITALS: BP 156/66
[2021-02-05] MEDS: GLIPIZIDE 5 MG TAB ER PO SCH (12:05)
[2021-02-05] MEDS: CARVEDILOL 3.125 MG TAB PO SCH ×2 (12:05→18:47)
[2021-02-05] MEDS: ALLOPURINOL 100 MG TAB PO SCH (12:05)
[2021-02-05] MEDS: INSULIN LISPRO 100 UNIT/1 ML 3ML VIAL SQ SCH ×3 (12:08→20:54)
[2021-02-05 12:41] VITALS: BP 156/69
[2021-02-05 12:50] VITALS: BP 156/66
[2021-02-05] MEDS: LEVALBUTEROL HCL SOLN NEBU 0.63 MG/3 ML NEB INH SCH ×2 (13:08→19:25)
[2021-02-05] MEDS: IPRATROPIUM BROMIDE 0.02% 2.5 ML NEB NEB SCH ×2 (13:08→19:55)
[2021-02-05] MEDS: METHYLPREDNISOLONE SOD SUCC 40 MG/ML VIAL 1ML IV SCH ×2 (14:15→21:18)
[2021-02-05 15:46] VITALS: BP 135/61
[2021-02-05] MEDS: FAMOTIDINE 20 MG TAB PO SCH (16:33)
[2021-02-05 20:00] VITALS: BP 137/65
[2021-02-05] MEDS ORDERED: ATORVASTATIN 20 MG TAB PO SCH (21:00)
[2021-02-05] MEDS ORDERED: TAMSULOSIN HCL 0.4 MG CAP PO SCH (21:00)
[2021-02-06] VITALS: BP 125/40
[2021-02-06] MEDS: IPRATROPIUM BROMIDE 0.02% 2.5 ML NEB NEB SCH ×2 (01:45→06:55)
[2021-02-06] MEDS: LEVALBUTEROL HCL SOLN NEBU 0.63 MG/3 ML NEB INH SCH ×2 (01:45→06:55)
[2021-02-06 04:00] VITALS: BP 131/68
[2021-02-06] MEDS: METHYLPREDNISOLONE SOD SUCC 40 MG/ML VIAL 1ML IV SCH (05:19)
[2021-02-06 06:06] LABS: BASOPHILS % 0.1 % (0.0-1.0); HEMATOCRIT 37.1 % (38.2-49.6); HEMOGLOBIN 12.2 g/dL (14.0-18.0); LYMPHOCYTES # (AUTO) 0.5 (1.0-3.2); LYMPHOCYTES % 5.9 % (18.0-39.1); MEAN CORPUSCULAR HEMOGLOBIN 31.7 pg (28-32); MEAN CORPUSCULAR HGB CONC 32.9 g/dL (31-35); MEAN CORPUSCULAR VOLUME 96.4 fL (81-99); MONOCYTES # (AUTO) 0.1 (0.2-0.8); MONOCYTES % 1.2 % (4.4-11.3); NEUTROPHILS # (AUTO) 7.7 (2.1-6.9); NEUTROPHILS % 92.6 % (38.7-80.0); PLATELET COUNT 182 x10e3/uL (140-360); RED BLOOD COUNT 3.85 x10e6/uL (4.3-5.7); RED CELL DISTRIBUTION WIDTH 13.1 % (11.7-14.4)
[2021-02-06 06:18] LABS: ALBUMIN 3.7 g/dL (3.5-5.0); ALBUMIN/GLOBULIN RATIO 1.3 (0.8-2.0); ANION GAP 17.6 mmol/L (8-16); CHOL/HDL RATIO 2.6 (3.9-4.7); CREATININE, SERUM 1.42 mg/dL (0.72-1.25); POTASSIUM 4.6 mmol/L (3.5-5.1)
[2021-02-06 07:24] LABS: CREATINE KINASE MB 2.1 ng/mL (0-5.0)
[2021-02-06] MEDS: FAMOTIDINE 20 MG TAB PO SCH (07:30)
[2021-02-06] MEDS: INSULIN LISPRO 100 UNIT/1 ML 3ML VIAL SQ SCH ×2 (07:30→11:30)
[2021-02-06] MEDS: GLIPIZIDE 5 MG TAB ER PO SCH (07:30)
[2021-02-06 08:14] VITALS: BP 127/66
[2021-02-06 08:45] VITALS: BP 127/66
[2021-02-06] MEDS: ASPIRIN 81 MG ENTERIC COATED PO SCH (09:00)
[2021-02-06] MEDS ORDERED: SPIRONOLACTONE 25 MG TAB PO SCH (09:00)
[2021-02-06] MEDS ORDERED: CLOPIDOGREL BISULFATE 75 MG TAB PO SCH (09:00)
[2021-02-06] MEDS ORDERED: FINASTERIDE 5 MG TAB PO SCH (09:00)
[2021-02-06] MEDS ORDERED: VALSARTAN/SACUBITRIL 24MG/26MG 1 EA TAB PO SCH ×2 (09:00→10:00)
[2021-02-06] MEDS ORDERED: FUROSEMIDE INJ 10 MG/ML 4 ML VIAL IV SCH (09:00)
[2021-02-06] MEDS: CARVEDILOL 3.125 MG TAB PO SCH (09:00)
[2021-02-06] MEDS: ALLOPURINOL 100 MG TAB PO SCH (09:00)
[2021-02-06] MEDS ORDERED: PREDNISONE10 MG PO (10:21)
[2021-02-06] MEDS ORDERED: TESSALON PERLE100 MG PO (10:22)
[2021-02-06] MEDS ORDERED: DOXYCYCLINE HY100 MG PO (10:22)
[2021-02-06] MEDS ORDERED: CIPRO500 MG PO (10:23)
== END 2021-02-06 12:50 | disposition home or self-care (01) ==
LOC: ER 05:59 → ERHOLD 08:28 → MED/SURG2 11:02
PROVIDERS: ADMIT Internal Medicine; ATTEND Internal Medicine
DX: J44.1 Chronic obstructive pulmonary disease with (acute) exacerbation (principal); I25.10 Atherosclerotic heart disease of native coronary artery without angina pectoris; F10.20 Alcohol dependence, uncomplicated; I11.0 Hypertensive heart disease with heart failure; I50.9 Heart failure, unspecified; R07.9 Chest pain, unspecified; E11.9 Type 2 diabetes mellitus without complications; E78.5 Hyperlipidemia, unspecified; Z95.810 Presence of automatic (implantable) cardiac defibrillator; Z95.1 Presence of aortocoronary bypass graft; Z88.0 Allergy status to penicillin; Z88.8 Allergy status to other drugs, medicaments and biological substances; R09.02 Hypoxemia; Z20.822 Contact with and (suspected) exposure to COVID-19
CPT/HCPCS: 36415 ×2; 71045; 80053 ×2; 80061; 80307; 80320; 81001; 82550 ×2; 82553 ×2; 82948 ×2; 83735; 83880; 84484 ×2; 85025 ×2; 93005; 94640 ×3; 99284; C9113; G0378 ×2; J1940 ×2; J2920 ×2; J2930; J3411; J7030; U0002

== ENCOUNTER 2021-09-15 09:25 | Inpatient (IN) | payer MEDICARE ==
[~2021-09-15] VITALS: Ht 167.6 cm; Wt 92.5 kg
[~2021-09-15 09:25] MED LIST changes: +ALLOPURINOL100 MG PO; +ASPIRIN EC81 MG PO; +CETIRIZINE HCL10 MG PO; +CIPRO500 MG PO; +DOXYCYCLINE HY100 MG PO; +GLIPIZIDE ER2.5 MG PO; +TESSALON PERLE100 MG PO
[2021-09-15 09:48] LABS: BASOPHILS % 0.6 % (0.0-1.0); EOSINOPHILS # (AUTO) 0.4 (0.0-0.4); EOSINOPHILS % 5.5 % (0.0-6.0); HEMATOCRIT 38.1 % (38.2-49.6); HEMOGLOBIN 12.4 g/dL (14.0-18.0); LYMPHOCYTES # (AUTO) 0.7 (1.0-3.2); LYMPHOCYTES % 10.8 % (18.0-39.1); MEAN CORPUSCULAR HEMOGLOBIN 31.5 pg (28-32); MEAN CORPUSCULAR HGB CONC 32.5 g/dL (31-35); MEAN CORPUSCULAR VOLUME 96.7 fL (81-99); MONOCYTES # (AUTO) 0.5 (0.2-0.8); NEUTROPHILS % 74.7 % (38.7-80.0); PLATELET COUNT 172 x10e3/uL (140-360); RED BLOOD COUNT 3.94 x10e6/uL (4.3-5.7); RED CELL DISTRIBUTION WIDTH 13.9 % (11.7-14.4)
[2021-09-15 10:04] LABS: ALBUMIN 3.5 g/dL (3.5-5.0); ALBUMIN/GLOBULIN RATIO 1.3 (0.8-2.0); ANION GAP 15.4 mmol/L (8-16); CREATININE, SERUM 1.23 mg/dL (0.72-1.25); POTASSIUM 4.4 mmol/L (3.5-5.1)
[2021-09-15] MEDS ORDERED: GLIMEPIRIDE2 MG PO (10:11)
[2021-09-15] MEDS ORDERED: JARDIANCE10 MG PO (10:11)
[2021-09-15] MEDS ORDERED: BREO ELLIPTA 11 EACH INH (10:13)
[2021-09-15] MEDS ORDERED: ASPIRIN 81 MG CHEW TAB PO ONE (10:45)
[2021-09-15] MEDS ORDERED: DEXTROSE 50% SYRINGE 50 ML IV PRN (11:15)
[2021-09-15] MEDS ORDERED: LIDOCAINE 4% PATCH TP PRN (11:15)
[2021-09-15] MEDS ORDERED: ONDANSETRON HCL INJ 2MG/ML 2ML 2 MG/ML VIAL IV PRN (11:15)
[2021-09-15] MEDS ORDERED: TRAMADOL HCL 50 MG TAB PO PRN (11:15)
[2021-09-15] MEDS ORDERED: MELATONIN 5 MG TABLET PO PRN (11:15)
[2021-09-15] MEDS ORDERED: ACETAMINOPHEN 325 MG TAB PO PRN (11:15)
[2021-09-15] MEDS ORDERED: DIPHENHYDRAMINE HCL 25 MG CAP PO PRN (11:15)
[2021-09-15] MEDS ORDERED: SIMETHICONE 80 MG CHEW PO PRN (11:15)
[2021-09-15] MEDS ORDERED: HYDRALAZINE HCL 20 MG/ML VIAL IV PRN (11:15)
[2021-09-15] MEDS ORDERED: BENZONATATE 100 MG CAP PO PRN (11:15)
[2021-09-15] MEDS ORDERED: CHLORASEPTIC SPRAY 177 ML BTL MM PRN (11:15)
[2021-09-15] MEDS ORDERED: POTASSIUM CHLORIDE 20 MEQ TAB CR PO PRN (11:15)
[2021-09-15] MEDS: FUROSEMIDE INJ 10 MG/ML 4 ML VIAL IV SCH ×3 (11:23→21:10)
[2021-09-15] MEDS ORDERED: SYMBICORT 80-10.2 GM INH (13:19)
[2021-09-15 13:24] VITALS: BP 157/77
[2021-09-15 13:25] VITALS: BP 157/77
[2021-09-15 13:27] VITALS: BP 157/77
[2021-09-15 15:33] LABS: CREATINE KINASE MB 2.9 ng/mL (0-5.0)
[2021-09-15] MEDS: ENOXAPARIN SOD INJ 40 MG/0.4 ML SYR SC SCH (16:04)
[2021-09-15 17:06] VITALS: BP 121/56
[2021-09-15] MEDS: ALBUTEROL/IPRATROPIUM 3 ML NEB NEB PRN (18:51)
[2021-09-15 20:20] VITALS: BP 127/64
[2021-09-15 20:36] VITALS: BP 127/64
[2021-09-15] MEDS: ATORVASTATIN 20 MG TAB PO SCH (21:10)
[2021-09-15] MEDS: TAMSULOSIN HCL 0.4 MG CAP PO SCH (21:10)
[2021-09-15 22:56] LABS: CREATINE KINASE MB 2.4 ng/mL (0-5.0)
[2021-09-16] VITALS (8 sets, daily range): BP systolic 98–141; BP diastolic 45–75
[2021-09-16] MEDS: FUROSEMIDE INJ 10 MG/ML 4 ML VIAL IV SCH ×3 (05:47→20:33)
[2021-09-16 06:24] LABS: ALBUMIN 3.5 g/dL (3.5-5.0); ALBUMIN/GLOBULIN RATIO 1.2 (0.8-2.0); ANION GAP 15.8 mmol/L (8-16); CALCIUM 9.2 mg/dL (8.4-10.2); CREATININE, SERUM 1.26 mg/dL (0.72-1.25); POTASSIUM 3.8 mmol/L (3.5-5.1)
[2021-09-16] MEDS: ALBUTEROL/IPRATROPIUM 3 ML NEB NEB PRN ×3 (06:33→18:38)
[2021-09-16 06:55] LABS: MAGNESIUM 2.4 MG/DL (1.3-2.1); PHOSPHORUS 4.1 MG/DL (2.3-4.7)
[2021-09-16 07:10] LABS: THYROID STIMULATING HORMONE 1.918 uIU/mL (0.350-4.940)
[2021-09-16 08:01] LABS: BASOPHILS % 0.6 % (0.0-1.0); EOSINOPHILS # (AUTO) 0.4 (0.0-0.4); EOSINOPHILS % 6.3 % (0.0-6.0); HEMATOCRIT 44.4 % (38.2-49.6); HEMOGLOBIN 15.1 g/dL (14.0-18.0); LYMPHOCYTES # (AUTO) 0.9 (1.0-3.2); MEAN CORPUSCULAR HEMOGLOBIN 31.9 pg (28-32); MEAN CORPUSCULAR VOLUME 93.9 fL (81-99); MONOCYTES # (AUTO) 0.5 (0.2-0.8); MONOCYTES % 7.7 % (4.4-11.3); NEUTROPHILS # (AUTO) 4.6 (2.1-6.9); NEUTROPHILS % 71.1 % (38.7-80.0); PLATELET COUNT 171 x10e3/uL (140-360); RED BLOOD COUNT 4.73 x10e6/uL (4.3-5.7); RED CELL DISTRIBUTION WIDTH 13.3 % (11.7-14.4)
[2021-09-16 08:24] LABS: CREATINE KINASE 79 IU/L (30-200)
[2021-09-16] MEDS: ASPIRIN 81 MG ENTERIC COATED PO SCH (08:31)
[2021-09-16] MEDS: FINASTERIDE 5 MG TAB PO SCH (08:33)
[2021-09-16] MEDS: PANTOPRAZOLE SOD 40 MG TABEC PO SCH (08:33)
[2021-09-16] MEDS: VALSARTAN/SACUBITRIL 24MG/26MG 1 EA TAB PO SCH ×2 (08:33→16:14)
[2021-09-16] MEDS: CLOPIDOGREL BISULFATE 75 MG TAB PO SCH (08:33)
[2021-09-16] MEDS ORDERED: SACUBITRIL/VALSARTAN 1 EACH TABLET PO SCH (09:00)
[2021-09-16] MEDS ORDERED: DEXTROSE 50% SYRINGE 50 ML IV PRN (12:15)
[2021-09-16] MEDS: METHYLPREDNISOLONE SOD SUCC 40 MG/ML VIAL 1ML IV SCH ×2 (13:28→20:33)
[2021-09-16] MEDS ORDERED: ONDANSETRON HCL 4 MG ORAL DISINTEGRATING TAB PO PRN (15:45)
[2021-09-16] MEDS: ENOXAPARIN SOD INJ 40 MG/0.4 ML SYR SC SCH (16:14)
[2021-09-16] MEDS: INSULIN REGULAR, HUMAN 100 UNIT/1 ML SQ SCH ×2 (16:16→20:32)
[2021-09-16] MEDS: TAMSULOSIN HCL 0.4 MG CAP PO SCH (20:33)
[2021-09-16] MEDS: ATORVASTATIN 20 MG TAB PO SCH (20:33)
[2021-09-17] VITALS (9 sets, daily range): BP systolic 75–119; BP diastolic 46–83
[2021-09-17] MEDS: ALBUTEROL/IPRATROPIUM 3 ML NEB NEB PRN ×4 (01:08→18:45)
[2021-09-17] MEDS: METHYLPREDNISOLONE SOD SUCC 40 MG/ML VIAL 1ML IV SCH ×3 (06:06→21:28)
[2021-09-17 06:38] LABS: BASOPHILS % 0.1 % (0.0-1.0); HEMATOCRIT 45.4 % (38.2-49.6); HEMOGLOBIN 15.8 g/dL (14.0-18.0); LYMPHOCYTES # (AUTO) 0.5 (1.0-3.2); LYMPHOCYTES % 5.6 % (18.0-39.1); MEAN CORPUSCULAR HEMOGLOBIN 32.2 pg (28-32); MEAN CORPUSCULAR HGB CONC 34.8 g/dL (31-35); MEAN CORPUSCULAR VOLUME 92.7 fL (81-99); MONOCYTES # (AUTO) 0.1 (0.2-0.8); MONOCYTES % 1.1 % (4.4-11.3); NEUTROPHILS # (AUTO) 8.5 (2.1-6.9); NEUTROPHILS % 92.7 % (38.7-80.0); PLATELET COUNT 230 x10e3/uL (140-360); RED CELL DISTRIBUTION WIDTH 13.2 % (11.7-14.4)
[2021-09-17 07:04] LABS: ANION GAP 19.1 mmol/L (8-16); CALCIUM 9.6 mg/dL (8.4-10.2); CREATININE, SERUM 1.54 mg/dL (0.72-1.25); POTASSIUM 4.1 mmol/L (3.5-5.1)
[2021-09-17] MEDS: INSULIN REGULAR, HUMAN 100 UNIT/1 ML SQ SCH ×4 (07:30→20:42)
[2021-09-17] MEDS: CLOPIDOGREL BISULFATE 75 MG TAB PO SCH (08:15)
[2021-09-17] MEDS: VALSARTAN/SACUBITRIL 24MG/26MG 1 EA TAB PO SCH (08:15)
[2021-09-17] MEDS: ASPIRIN 81 MG ENTERIC COATED PO SCH (08:15)
[2021-09-17] MEDS: PANTOPRAZOLE SOD 40 MG TABEC PO SCH (08:15)
[2021-09-17] MEDS: FINASTERIDE 5 MG TAB PO SCH (08:15)
[2021-09-17] MEDS ORDERED: METHYLPREDNISOLONE SOD SUCC 125 MG/2ML VIAL IV NR (11:45)
[2021-09-17] MEDS ORDERED: SODIUM CHLORIDE 0.9% 250ML 250 ML ONE (12:17)
[2021-09-17] MEDS: ENOXAPARIN SOD INJ 40 MG/0.4 ML SYR SC SCH (16:20)
[2021-09-17] MEDS: ATORVASTATIN 20 MG TAB PO SCH (20:30)
[2021-09-17] MEDS: TAMSULOSIN HCL 0.4 MG CAP PO SCH (20:30)
[2021-09-18] VITALS (9 sets, daily range): BP systolic 87–130; BP diastolic 47–65
[2021-09-18] MEDS: ALBUTEROL/IPRATROPIUM 3 ML NEB NEB PRN ×2 (01:00→07:00)
[2021-09-18] MEDS: METHYLPREDNISOLONE SOD SUCC 40 MG/ML VIAL 1ML IV SCH ×3 (06:18→21:07)
[2021-09-18] MEDS: INSULIN REGULAR, HUMAN 100 UNIT/1 ML SQ SCH ×4 (07:30→21:16)
[2021-09-18 07:54] LABS: ANION GAP 22.3 mmol/L (8-16); CALCIUM 9.2 mg/dL (8.4-10.2); CREATININE, SERUM 2.14 mg/dL (0.72-1.25); POTASSIUM 4.3 mmol/L (3.5-5.1)
[2021-09-18] MEDS: FINASTERIDE 5 MG TAB PO SCH (08:10)
[2021-09-18] MEDS: CLOPIDOGREL BISULFATE 75 MG TAB PO SCH (08:10)
[2021-09-18] MEDS: PANTOPRAZOLE SOD 40 MG TABEC PO SCH (08:10)
[2021-09-18] MEDS: ASPIRIN 81 MG ENTERIC COATED PO SCH (08:10)
[2021-09-18] MEDS: ALBUTEROL/IPRATROPIUM 3 ML NEB NEB SCH ×4 (10:15→23:10)
[2021-09-18] MEDS ORDERED: AZITHROMYCIN 250 MG TAB PO NR (10:30)
[2021-09-18] MEDS: SODIUM CHLORIDE 0.9% 1000ML 1,000 ML IV SCH ×2 (11:54→20:45)
[2021-09-18] MEDS: DOCUSATE SODIUM 100 MG CAP PO PRN (14:18)
[2021-09-18] MEDS: ENOXAPARIN SOD INJ 40 MG/0.4 ML SYR SC SCH (17:22)
[2021-09-18] MEDS: BUDESONIDE/FORMOTEROL 160/4.5MCG INHALER INH SCH (19:10)
[2021-09-18] MEDS: ATORVASTATIN 20 MG TAB PO SCH (21:07)
[2021-09-18] MEDS: TAMSULOSIN HCL 0.4 MG CAP PO SCH (21:07)
[2021-09-19] VITALS (8 sets, daily range): BP systolic 112–141; BP diastolic 54–74
[2021-09-19] MEDS: ALBUTEROL/IPRATROPIUM 3 ML NEB NEB SCH ×5 (02:40→19:00)
[2021-09-19] MEDS: METHYLPREDNISOLONE SOD SUCC 40 MG/ML VIAL 1ML IV SCH ×3 (05:05→16:13)
[2021-09-19] MEDS: DOCUSATE SODIUM 100 MG CAP PO PRN ×2 (05:05→20:44)
[2021-09-19] MEDS: SODIUM CHLORIDE 0.9% 1000ML 1,000 ML IV SCH ×2 (05:36→12:00)
[2021-09-19 06:56] LABS: CALCIUM 7.9 mg/dL (8.4-10.2); CREATININE, SERUM 1.46 mg/dL (0.72-1.25)
[2021-09-19] MEDS: BUDESONIDE/FORMOTEROL 160/4.5MCG INHALER INH SCH ×2 (07:20→19:00)
[2021-09-19] MEDS: INSULIN REGULAR, HUMAN 100 UNIT/1 ML SQ SCH ×4 (07:30→20:21)
[2021-09-19] MEDS: PANTOPRAZOLE SOD 40 MG TABEC PO SCH (08:13)
[2021-09-19] MEDS: FINASTERIDE 5 MG TAB PO SCH (08:13)
[2021-09-19] MEDS: CLOPIDOGREL BISULFATE 75 MG TAB PO SCH (08:13)
[2021-09-19] MEDS: ASPIRIN 81 MG ENTERIC COATED PO SCH (08:13)
[2021-09-19] MEDS: AZITHROMYCIN 250 MG TAB PO SCH (08:13)
[2021-09-19] MEDS ORDERED: SODIUM CHLORIDE 0.9% 1000ML 1,000 ML IV SCH (11:45)
[2021-09-19] MEDS ORDERED: GUAIFENESIN 200 MG/10 ML UDC PO PRN (12:15)
[2021-09-19] MEDS: ENOXAPARIN SOD INJ 40 MG/0.4 ML SYR SC SCH (16:13)
[2021-09-19] MEDS: TAMSULOSIN HCL 0.4 MG CAP PO SCH (20:21)
[2021-09-19] MEDS: ATORVASTATIN 20 MG TAB PO SCH (20:21)
[2021-09-20] VITALS (7 sets, daily range): BP systolic 97–136; BP diastolic 45–67
[2021-09-20] MEDS: SODIUM CHLORIDE 0.9% 1000ML 1,000 ML IV SCH (00:02)
[2021-09-20] MEDS: ALBUTEROL/IPRATROPIUM 3 ML NEB NEB SCH ×5 (04:10→14:00)
[2021-09-20] MEDS: BUDESONIDE/FORMOTEROL 160/4.5MCG INHALER INH SCH (06:27)
[2021-09-20 07:55] LABS: ANION GAP 20.1 mmol/L (8-16); CALCIUM 8.9 mg/dL (8.4-10.2); CREATININE, SERUM 1.24 mg/dL (0.72-1.25); POTASSIUM 4.1 mmol/L (3.5-5.1)
[2021-09-20] MEDS: PANTOPRAZOLE SOD 40 MG TABEC PO SCH (08:26)
[2021-09-20] MEDS: METHYLPREDNISOLONE SOD SUCC 40 MG/ML VIAL 1ML IV SCH (08:26)
[2021-09-20] MEDS: CLOPIDOGREL BISULFATE 75 MG TAB PO SCH (08:27)
[2021-09-20] MEDS: FINASTERIDE 5 MG TAB PO SCH (08:27)
[2021-09-20] MEDS: ASPIRIN 81 MG ENTERIC COATED PO SCH (08:27)
[2021-09-20] MEDS: INSULIN REGULAR, HUMAN 100 UNIT/1 ML SQ SCH ×3 (08:28→16:30)
[2021-09-20] MEDS: AZITHROMYCIN 250 MG TAB PO SCH (08:28)
[2021-09-20] MEDS ORDERED: METOPROLOL SUCCINATE 25 MG TAB XL PO SCH (09:00)
[2021-09-20] MEDS ORDERED: FUROSEMIDE 40 MG TAB PO SCH (09:00)
[2021-09-20] MEDS ORDERED: PREDNISONE 20 MG TAB PO SCH (09:00)
[2021-09-20] MEDS: SODIUM BICARBONATE 650 MG TAB PO SCH ×2 (10:59→17:09)
[2021-09-20 15:51] LABS: ANION GAP 17.3 mmol/L (8-16); CALCIUM 8.2 mg/dL (8.4-10.2); CREATININE, SERUM 1.42 mg/dL (0.72-1.25); POTASSIUM 4.3 mmol/L (3.5-5.1)
[2021-09-20] MEDS: ENOXAPARIN SOD INJ 40 MG/0.4 ML SYR SC SCH (17:00)
== END 2021-09-20 20:31 | disposition home or self-care (01) | DRG 291 ==
LOC: ER 09:32 → ERHOLD 10:58 → MED/SURG3 13:04
PROVIDERS: ADMIT Internal Medicine; ATTEND Internal Medicine
DX: I11.0 Hypertensive heart disease with heart failure (principal); I50.43 Acute on chronic combined systolic (congestive) and diastolic (congestive) heart failure; J44.1 Chronic obstructive pulmonary disease with (acute) exacerbation; N17.9 Acute kidney failure, unspecified; J45.901 Unspecified asthma with (acute) exacerbation; Z95.810 Presence of automatic (implantable) cardiac defibrillator; I25.10 Atherosclerotic heart disease of native coronary artery without angina pectoris; E11.9 Type 2 diabetes mellitus without complications; Z91.19 Patient's noncompliance with other medical treatment and regimen; E78.5 Hyperlipidemia, unspecified; Z95.1 Presence of aortocoronary bypass graft; Z86.16 Personal history of COVID-19; Z20.822 Contact with and (suspected) exposure to COVID-19; E86.0 Dehydration; N40.0 Benign prostatic hyperplasia without lower urinary tract symptoms; E66.9 Obesity, unspecified; Z68.32 Body mass index [BMI] 32.0-32.9, adult
CPT/HCPCS: 36415; 71045; 71250; 80048; 80053; 80061; 82550; 82553; 82948; 83036; 83605; 83735; 83880; 84100; 84443; 84484; 85025; 87040; 93005; 93306; 94640; 94799; 96361; 97139; 99284; J1650; J1817; J1940; J2920; J2930; J7030; J7050; J7512; U0002

== ENCOUNTER 2021-12-03 02:40 | Inpatient (IN) | payer MEDICARE ==
[~2021-12-03] VITALS: Ht 167.6 cm; Wt 79.8 kg
[~2021-12-03 02:40] MED LIST changes: +BREO ELLIPTA 11 EACH INH; +GLIMEPIRIDE2 MG PO; +JARDIANCE10 MG PO; +SYMBICORT 80-10.2 GM INH
[2021-12-03 03:15] LABS: BASOPHILS % 0.3 % (0.0-1.0); EOSINOPHILS # (AUTO) 0.1 (0.0-0.4); EOSINOPHILS % 2.2 % (0.0-6.0); HEMATOCRIT 36.6 % (38.2-49.6); HEMOGLOBIN 12.2 g/dL (14.0-18.0); LYMPHOCYTES # (AUTO) 0.7 (1.0-3.2); LYMPHOCYTES % 12.3 % (18.0-39.1); MEAN CORPUSCULAR HEMOGLOBIN 32.4 pg (28-32); MEAN CORPUSCULAR HGB CONC 33.3 g/dL (31-35); MEAN CORPUSCULAR VOLUME 97.3 fL (81-99); MONOCYTES # (AUTO) 0.5 (0.2-0.8); MONOCYTES % 7.5 % (4.4-11.3); NEUTROPHILS # (AUTO) 4.7 (2.1-6.9); NEUTROPHILS % 77.4 % (38.7-80.0); PLATELET COUNT 152 x10e3/uL (140-360); RED BLOOD COUNT 3.76 x10e6/uL (4.3-5.7); RED CELL DISTRIBUTION WIDTH 14.3 % (11.7-14.4)
[2021-12-03] MEDS ORDERED: ALBUTEROL/IPRATROPIUM 3 ML NEB NEB ONE (03:30)
[2021-12-03] MEDS ORDERED: ACETAMINOPHEN 325 MG TAB PO ONE (03:30)
[2021-12-03 03:36] LABS: CREATINE KINASE MB 0.6 ng/mL (0-5.0)
[2021-12-03 03:37] LABS: ALBUMIN 3.2 g/dL (3.5-5.0); CALCIUM 7.9 mg/dL (8.4-10.2); CREATININE, SERUM 1.64 mg/dL (0.72-1.25)
[2021-12-03] MEDS ORDERED: DEXTROSE 50% SYRINGE 50 ML IV PRN (04:30)
[2021-12-03] MEDS ORDERED: ACETAMINOPHEN 325 MG TAB PO PRN ×2 (04:30→09:30)
[2021-12-03] MEDS ORDERED: METHYLPREDNISOLONE SOD SUCC 40 MG/ML VIAL 1ML IV SCH (06:00)
[2021-12-03] MEDS: ALBUTEROL/IPRATROPIUM 3 ML NEB NEB SCH ×5 (06:30→23:10)
[2021-12-03 06:33] VITALS: BP 100/55
[2021-12-03] MEDS: INSULIN REGULAR, HUMAN 100 UNIT/1 ML SQ SCH ×4 (07:45→21:54)
[2021-12-03 08:28] VITALS: BP 105/47
[2021-12-03 09:00] VITALS: BP 105/47
[2021-12-03] MEDS ORDERED: FAMOTIDINE 20 MG TAB PO PRN (09:30)
[2021-12-03] MEDS ORDERED: Morphine 2mg Syringe 2 MG/ML SYR IV PRN (09:30)
[2021-12-03] MEDS ORDERED: ONDANSETRON HCL INJ 2MG/ML 2ML 2 MG/ML VIAL IV PRN (09:30)
[2021-12-03] MEDS ORDERED: NITROGLYCERIN 0.4 MG SUBL SL PRN (10:00)
[2021-12-03] MEDS: FUROSEMIDE INJ 10 MG/ML 4 ML VIAL IV SCH ×2 (10:00→18:00)
[2021-12-03] MEDS: FINASTERIDE 5 MG TAB PO SCH (11:00)
[2021-12-03] MEDS: CLOPIDOGREL BISULFATE 75 MG TAB PO SCH (11:00)
[2021-12-03] MEDS: VALSARTAN/SACUBITRIL 24MG/26MG 1 EA TAB PO SCH ×2 (11:00→18:00)
[2021-12-03] MEDS: ASPIRIN 81 MG ENTERIC COATED PO SCH (11:00)
[2021-12-03] MEDS: ALLOPURINOL 100 MG TAB PO SCH (11:00)
[2021-12-03] MEDS ORDERED: SODIUM CHLORIDE 0.9% 250ML 250 ML ONE ×3 (11:12→11:24)
[2021-12-03] MEDS: METHYLPREDNISOLONE SOD SUCC 40 MG/ML VIAL 1ML IV SCH ×3 (11:49→23:42)
[2021-12-03 12:05] LABS: CREATINE KINASE MB 0.8 ng/mL (0-5.0)
[2021-12-03 12:17] VITALS: BP 98/47
[2021-12-03 15:52] VITALS: BP 110/52
[2021-12-03 19:18] LABS: CREATINE KINASE MB 1.2 ng/mL (0-5.0)
[2021-12-03] MEDS: BUDESONIDE/FORMOTEROL FUMARATE 80/4.5MCG 6.9 GM INH AEROSOL IH SCH (19:30)
[2021-12-03 20:00] VITALS: BP 101/56
[2021-12-03] MEDS: HYDROCODONE/APAP 10MG-325MG TAB PO PRN (20:40)
[2021-12-03] MEDS: ATORVASTATIN 20 MG TAB PO SCH (21:53)
[2021-12-03] MEDS: TAMSULOSIN HCL 0.4 MG CAP PO SCH (21:54)
[2021-12-04] VITALS (8 sets, daily range): BP systolic 87–154; BP diastolic 39–76
[2021-12-04] MEDS: HYDROCODONE/APAP 10MG-325MG TAB PO PRN ×2 (03:03→21:05)
[2021-12-04] MEDS: ALBUTEROL/IPRATROPIUM 3 ML NEB NEB SCH ×6 (03:12→23:58)
[2021-12-04] MEDS: METHYLPREDNISOLONE SOD SUCC 40 MG/ML VIAL 1ML IV SCH ×2 (05:59→21:03)
[2021-12-04] MEDS: BUDESONIDE/FORMOTEROL FUMARATE 80/4.5MCG 6.9 GM INH AEROSOL IH SCH ×2 (06:23→19:00)
[2021-12-04 06:47] LABS: BASOPHILS % 0.2 % (0.0-1.0); HEMATOCRIT 38.6 % (38.2-49.6); HEMOGLOBIN 12.6 g/dL (14.0-18.0); LYMPHOCYTES # (AUTO) 0.3 (1.0-3.2); LYMPHOCYTES % 3.8 % (18.0-39.1); MEAN CORPUSCULAR HEMOGLOBIN 32.1 pg (28-32); MEAN CORPUSCULAR HGB CONC 32.6 g/dL (31-35); MEAN CORPUSCULAR VOLUME 98.2 fL (81-99); MONOCYTES # (AUTO) 0.2 (0.2-0.8); MONOCYTES % 2.8 % (4.4-11.3); NEUTROPHILS % 92.7 % (38.7-80.0); PLATELET COUNT 142 x10e3/uL (140-360); RED BLOOD COUNT 3.93 x10e6/uL (4.3-5.7)
[2021-12-04 07:20] LABS: ALBUMIN 3.2 g/dL (3.5-5.0); ALBUMIN/GLOBULIN RATIO 0.9 (0.8-2.0); ANION GAP 16.5 mmol/L (8-16); CALCIUM 8.5 mg/dL (8.4-10.2); CREATININE, SERUM 1.52 mg/dL (0.72-1.25); POTASSIUM 3.5 mmol/L (3.5-5.1)
[2021-12-04] MEDS: INSULIN REGULAR, HUMAN 100 UNIT/1 ML SQ SCH ×4 (08:30→21:04)
[2021-12-04] MEDS: CLOPIDOGREL BISULFATE 75 MG TAB PO SCH (09:50)
[2021-12-04] MEDS: ASPIRIN 81 MG ENTERIC COATED PO SCH (09:50)
[2021-12-04] MEDS: FUROSEMIDE INJ 10 MG/ML 4 ML VIAL IV SCH ×2 (09:50→17:32)
[2021-12-04] MEDS: ALLOPURINOL 100 MG TAB PO SCH (09:50)
[2021-12-04] MEDS: VALSARTAN/SACUBITRIL 24MG/26MG 1 EA TAB PO SCH ×2 (09:50→17:32)
[2021-12-04] MEDS: FINASTERIDE 5 MG TAB PO SCH (09:50)
[2021-12-04] MEDS: TAMSULOSIN HCL 0.4 MG CAP PO SCH (21:03)
[2021-12-04] MEDS: ATORVASTATIN 20 MG TAB PO SCH (21:03)
[2021-12-05] MEDS: ALBUTEROL/IPRATROPIUM 3 ML NEB NEB SCH ×3 (03:42→10:45)
[2021-12-05 05:38] VITALS: BP 91/58
[2021-12-05] MEDS: BUDESONIDE/FORMOTEROL FUMARATE 80/4.5MCG 6.9 GM INH AEROSOL IH SCH (07:00)
[2021-12-05] MEDS: INSULIN REGULAR, HUMAN 100 UNIT/1 ML SQ SCH (08:00)
[2021-12-05 08:02] VITALS: BP 129/82
[2021-12-05] MEDS: FUROSEMIDE INJ 10 MG/ML 4 ML VIAL IV SCH (08:27)
[2021-12-05] MEDS: METHYLPREDNISOLONE SOD SUCC 40 MG/ML VIAL 1ML IV SCH (08:28)
[2021-12-05] MEDS: ASPIRIN 81 MG ENTERIC COATED PO SCH (08:29)
[2021-12-05] MEDS: CLOPIDOGREL BISULFATE 75 MG TAB PO SCH (08:29)
[2021-12-05] MEDS: ALLOPURINOL 100 MG TAB PO SCH (08:29)
[2021-12-05] MEDS: FINASTERIDE 5 MG TAB PO SCH (08:29)
[2021-12-05] MEDS: VALSARTAN/SACUBITRIL 24MG/26MG 1 EA TAB PO SCH (08:29)
[2021-12-05 08:33] VITALS: BP 129/82
[2021-12-06] MEDS ORDERED: AZITHROMYCIN 250 MG TAB PO SCH (06:00)
== END 2021-12-05 12:32 | disposition home or self-care (01) | DRG 291 ==
LOC: ER 03:15 → ERHOLD 04:34 → MED/SURG2 06:10 → OBSVTOIN 09:21
PROVIDERS: ADMIT Internal Medicine; ATTEND Internal Medicine
DX: I13.0 Hypertensive heart and chronic kidney disease with heart failure and stage 1 through stage 4 chronic kidney disease, or unspecified chronic kidney disease (principal); J18.9 Pneumonia, unspecified organism; I50.23 Acute on chronic systolic (congestive) heart failure; J44.0 Chronic obstructive pulmonary disease with (acute) lower respiratory infection; J44.1 Chronic obstructive pulmonary disease with (acute) exacerbation; F17.200 Nicotine dependence, unspecified, uncomplicated; E11.9 Type 2 diabetes mellitus without complications; E78.5 Hyperlipidemia, unspecified; Z95.810 Presence of automatic (implantable) cardiac defibrillator; Z91.19 Patient's noncompliance with other medical treatment and regimen; Z91.14 Patient's other noncompliance with medication regimen; I25.10 Atherosclerotic heart disease of native coronary artery without angina pectoris; Z86.16 Personal history of COVID-19; R09.02 Hypoxemia; I27.20 Pulmonary hypertension, unspecified; J20.9 Acute bronchitis, unspecified; D63.8 Anemia in other chronic diseases classified elsewhere; N18.30 Chronic kidney disease, stage 3 unspecified
CPT/HCPCS: 36415; 71045; 71046; 71250; 80053; 82550; 82553; 82948; 83605; 83880; 84484; 85025; 87040; 93005; 94640; 94799; 99284; J0456; J0696; J1940; J2920; J7050; U0002

== ENCOUNTER 2021-12-11 16:23 | Emergency (ER) | payer MEDICARE ==
[~2021-12-11] VITALS: Ht 167.6 cm; Wt 79.8 kg
[2021-12-11 17:41] LABS: BASOPHILS % 0.1 % (0.0-1.0); HEMATOCRIT 36.2 % (38.2-49.6); LYMPHOCYTES # (AUTO) 0.8 (1.0-3.2); LYMPHOCYTES % 8.4 % (18.0-39.1); MEAN CORPUSCULAR HEMOGLOBIN 32.4 pg (28-32); MEAN CORPUSCULAR HGB CONC 33.1 g/dL (31-35); MEAN CORPUSCULAR VOLUME 97.8 fL (81-99); MONOCYTES # (AUTO) 0.4 (0.2-0.8); MONOCYTES % 4.1 % (4.4-11.3); NEUTROPHILS # (AUTO) 7.7 (2.1-6.9); NEUTROPHILS % 85.5 % (38.7-80.0); PLATELET COUNT 230 x10e3/uL (140-360); RED CELL DISTRIBUTION WIDTH 14.5 % (11.7-14.4)
[2021-12-11 17:54] LABS: ANION GAP 17.4 mmol/L (8-16); CALCIUM 8.2 mg/dL (8.4-10.2); CREATININE, SERUM 1.56 mg/dL (0.72-1.25); POTASSIUM 4.4 mmol/L (3.5-5.1)
[2021-12-11] MEDS ORDERED: SODIUM CHLORIDE 0.9% 1000ML 1,000 ML IV SCH (18:30)
[2021-12-11] MEDS ORDERED: SODIUM CHLORIDE 0.9% 1000ML 1,000 ML ONE (18:43)
[2021-12-11 19:59] VITALS: BP 124/66
== END 2021-12-11 19:50 | disposition home or self-care (01) ==
LOC: ER 17:15
DX: R06.00 Dyspnea, unspecified (principal); E11.65 Type 2 diabetes mellitus with hyperglycemia; I10 Essential (primary) hypertension; E78.5 Hyperlipidemia, unspecified; M54.9 Dorsalgia, unspecified; G89.29 Other chronic pain; Z95.810 Presence of automatic (implantable) cardiac defibrillator; R94.31 Abnormal electrocardiogram [ECG] [EKG]
CPT/HCPCS: 36415; 71045; 80053; 83880; 84484; 85025; 93005; 99284; J7030

== ENCOUNTER 2022-01-29 15:16 | Emergency (ER) | payer MEDICARE ==
[~2022-01-29] VITALS: Ht 167.6 cm; Wt 79.8 kg
[2022-01-29 16:10] VITALS: BP 124/99
== END 2022-01-29 18:05 | disposition home or self-care (01) ==
LOC: ER 15:20
DX: M25.562 Pain in left knee (principal)
CPT/HCPCS: 99283

== ENCOUNTER 2022-03-08 08:41 | Emergency (ER) | payer MEDICARE, OTHER ==
[~2022-03-08] VITALS: Ht 167.6 cm; Wt 75.7 kg
[2022-03-08] MEDS ORDERED: KETOROLAC TROMETHAMINE 30 MG/ML VIAL IM STA (08:52)
[2022-03-08] MEDS ORDERED: XARELTO10 MG PO (09:08)
[2022-03-08] MEDS ORDERED: HYDROCODON-ACE1 EA11 PO (11:37)
[2022-03-08 12:41] VITALS: BP 122/65
== END 2022-03-08 12:10 | disposition home or self-care (01) ==
LOC: ER 09:10
DX: S82.832A Other fracture of upper and lower end of left fibula, initial encounter for closed fracture (principal); M25.562 Pain in left knee; W01.0XXA Fall on same level from slipping, tripping and stumbling without subsequent striking against object, initial encounter; Y93.01 Activity, walking, marching and hiking; Y92.89 Other specified places as the place of occurrence of the external cause; I10 Essential (primary) hypertension; E11.9 Type 2 diabetes mellitus without complications; J44.9 Chronic obstructive pulmonary disease, unspecified; E78.5 Hyperlipidemia, unspecified; Z95.810 Presence of automatic (implantable) cardiac defibrillator
CPT/HCPCS: 29515; 73562; 73610; 93926; 93971; 99284; J1885

== ENCOUNTER 2022-11-06 07:37 | Inpatient (IN) | payer MEDICARE ==
[~2022-11-06] VITALS: Ht 167.6 cm; Wt 75.7 kg
[~2022-11-06 07:37] MED LIST changes: +HYDROCODON-ACE1 EA11 PO; +XARELTO10 MG PO
[2022-11-06 07:58] LABS: BASOPHILS % 0.4 % (0.0-1.0); EOSINOPHILS # (AUTO) 0.5 (0.0-0.4); EOSINOPHILS % 5.7 % (0.0-6.0); HEMATOCRIT 36.7 % (38.2-49.6); LYMPHOCYTES # (AUTO) 0.8 (1.0-3.2); LYMPHOCYTES % 9.5 % (18.0-39.1); MEAN CORPUSCULAR HEMOGLOBIN 31.3 pg (28-32); MEAN CORPUSCULAR HGB CONC 32.7 g/dL (31-35); MEAN CORPUSCULAR VOLUME 95.6 fL (81-99); MONOCYTES # (AUTO) 0.5 (0.2-0.8); MONOCYTES % 5.7 % (4.4-11.3); NEUTROPHILS # (AUTO) 6.7 (2.1-6.9); NEUTROPHILS % 78.5 % (38.7-80.0); PLATELET COUNT 173 x10e3/uL (140-360); RED BLOOD COUNT 3.84 x10e6/uL (4.3-5.7)
[2022-11-06] MEDS ORDERED: ALBUTEROL/IPRATROPIUM 3 ML NEB ONE (07:58)
[2022-11-06] MEDS ORDERED: SODIUM CHLORIDE FLUSH 10 ML SYR IV PRN (08:00)
[2022-11-06] MEDS ORDERED: ALBUTEROL/IPRATROPIUM 3 ML NEB NEB ONE (08:00)
[2022-11-06 08:13] LABS: ALBUMIN 3.8 g/dL (3.5-5.0); ALBUMIN/GLOBULIN RATIO 1.7 (0.8-2.0); ANION GAP 15.9 mmol/L (8-16); CALCIUM 8.5 mg/dL (8.4-10.2); CREATININE, SERUM 1.47 mg/dL (0.72-1.25); POTASSIUM 4.9 mmol/L (3.5-5.1)
[2022-11-06] MEDS ORDERED: ONDANSETRON HCL INJ 2MG/ML 2ML 2 MG/ML VIAL IV PRN (09:00)
[2022-11-06] MEDS ORDERED: ASPIRIN 81 MG CHEW TAB PO ONE (09:00)
[2022-11-06] MEDS ORDERED: SODIUM CHLORIDE FLUSH 10 ML SYR INJ PRN (09:00)
[2022-11-06] MEDS ORDERED: METHYLPREDNISOLONE SOD SUCC 125 MG/2ML VIAL IV ONE (09:00)
[2022-11-06] MEDS: FUROSEMIDE INJ 10 MG/ML 4 ML VIAL IV SCH ×2 (09:30→21:45)
[2022-11-06] MEDS: ALBUTEROL/IPRATROPIUM 3 ML NEB NEB SCH ×4 (11:02→23:20)
[2022-11-06 14:00] VITALS: BP 151/57
[2022-11-06 15:00] VITALS: BP 151/57
[2022-11-06 17:02] VITALS: BP 137/56
[2022-11-06 17:29] LABS: CREATINE KINASE MB 1.2 ng/mL (0-5.0)
[2022-11-06] MEDS ORDERED: CARVEDILOL3.125 MG PO (18:06)
[2022-11-06] MEDS ORDERED: ENTRESTO 24 MG1 EACH (18:06)
[2022-11-06 21:01] VITALS: BP 125/53
[2022-11-06] MEDS: VALSARTAN/SACUBITRIL 24MG/26MG 1 EA TAB PO SCH (21:44)
[2022-11-06 23:19] VITALS: BP 125/53
[2022-11-07 01:42] LABS: CREATINE KINASE MB 1.3 ng/mL (0-5.0)
[2022-11-07 01:50] VITALS: BP 114/48
[2022-11-07] MEDS: ALBUTEROL/IPRATROPIUM 3 ML NEB NEB SCH ×6 (03:10→23:42)
[2022-11-07] MEDS ORDERED: JARDIANCE10 MG PO (04:47)
[2022-11-07 06:11] LABS: BASOPHILS % 0.3 % (0.0-1.0); HEMATOCRIT 38.1 % (38.2-49.6); HEMOGLOBIN 12.3 g/dL (14.0-18.0); LYMPHOCYTES # (AUTO) 0.5 (1.0-3.2); LYMPHOCYTES % 6.5 % (18.0-39.1); MEAN CORPUSCULAR HEMOGLOBIN 31.5 pg (28-32); MEAN CORPUSCULAR HGB CONC 32.3 g/dL (31-35); MEAN CORPUSCULAR VOLUME 97.4 fL (81-99); MONOCYTES # (AUTO) 0.1 (0.2-0.8); MONOCYTES % 1.4 % (4.4-11.3); NEUTROPHILS # (AUTO) 7.1 (2.1-6.9); NEUTROPHILS % 91.4 % (38.7-80.0); PLATELET COUNT 156 x10e3/uL (140-360); RED BLOOD COUNT 3.91 x10e6/uL (4.3-5.7); RED CELL DISTRIBUTION WIDTH 13.7 % (11.7-14.4)
[2022-11-07 06:25] VITALS: BP 112/66
[2022-11-07 06:49] LABS: ALBUMIN 3.8 g/dL (3.5-5.0); ALBUMIN/GLOBULIN RATIO 1.4 (0.8-2.0); ANION GAP 16.4 mmol/L (8-16); CALCIUM 8.8 mg/dL (8.4-10.2); CREATININE, SERUM 1.6 mg/dL (0.72-1.25); POTASSIUM 4.4 mmol/L (3.5-5.1)
[2022-11-07 08:00] VITALS: BP 107/43
[2022-11-07] MEDS: SPIRONOLACTONE 25 MG TAB PO SCH (08:41)
[2022-11-07] MEDS: CLOPIDOGREL BISULFATE 75 MG TAB PO SCH (08:41)
[2022-11-07] MEDS: VALSARTAN/SACUBITRIL 24MG/26MG 1 EA TAB PO SCH ×2 (08:41→23:02)
[2022-11-07 09:02] VITALS: BP 112/66
[2022-11-07] MEDS ORDERED: FAMOTIDINE 20 MG TAB PO PRN (09:15)
[2022-11-07] MEDS ORDERED: DEXTROSE 50% SYRINGE 50 ML IV PRN (09:15)
[2022-11-07] MEDS ORDERED: CLOPIDOGREL BISULFATE 75 MG TAB PO SCH (10:00)
[2022-11-07] MEDS: FINASTERIDE 5 MG TAB PO SCH (10:56)
[2022-11-07] MEDS: ALLOPURINOL 300 MG TAB PO SCH (10:56)
[2022-11-07] MEDS: ASPIRIN 81 MG ENTERIC COATED PO SCH (10:56)
[2022-11-07] MEDS ORDERED: SODIUM CHLORIDE 0.9% 250ML 250 ML ONE (11:39)
[2022-11-07] MEDS: INSULIN LISPRO 100 UNIT/1 ML 3ML VIAL SQ SCH ×3 (11:59→23:10)
[2022-11-07 13:00] VITALS: BP 121/52
[2022-11-07] MEDS ORDERED: ONDANSETRON HCL 4 MG ORAL DISINTEGRATING TAB PO PRN (13:45)
[2022-11-07] MEDS: METHYLPREDNISOLONE SOD SUCC 40 MG/ML VIAL 1ML IV SCH ×2 (14:47→23:02)
[2022-11-07 17:25] VITALS: BP 106/58
[2022-11-07 19:14] LABS: CREATINE KINASE MB 1.7 ng/mL (0-5.0)
[2022-11-07] MEDS: ATORVASTATIN 40 MG TAB PO SCH (23:02)
[2022-11-07] MEDS: TAMSULOSIN HCL 0.4 MG CAP PO SCH (23:02)
[2022-11-08] VITALS (7 sets, daily range): BP systolic 105–119; BP diastolic 41–58
[2022-11-08] MEDS: ALBUTEROL/IPRATROPIUM 3 ML NEB NEB SCH ×6 (03:05→23:00)
[2022-11-08 05:59] LABS: HEMATOCRIT 34.3 % (38.2-49.6); HEMOGLOBIN 11.1 g/dL (14.0-18.0); LYMPHOCYTES # (AUTO) 0.4 (1.0-3.2); LYMPHOCYTES % 4.1 % (18.0-39.1); MEAN CORPUSCULAR HEMOGLOBIN 31.3 pg (28-32); MEAN CORPUSCULAR HGB CONC 32.4 g/dL (31-35); MEAN CORPUSCULAR VOLUME 96.6 fL (81-99); MONOCYTES # (AUTO) 0.1 (0.2-0.8); MONOCYTES % 0.8 % (4.4-11.3); NEUTROPHILS # (AUTO) 8.3 (2.1-6.9); NEUTROPHILS % 94.9 % (38.7-80.0); PLATELET COUNT 154 x10e3/uL (140-360); RED BLOOD COUNT 3.55 x10e6/uL (4.3-5.7)
[2022-11-08] MEDS: METHYLPREDNISOLONE SOD SUCC 40 MG/ML VIAL 1ML IV SCH ×3 (06:07→21:11)
[2022-11-08 06:22] LABS: ANION GAP 16.6 mmol/L (8-16); CALCIUM 8.4 mg/dL (8.4-10.2); CREATININE, SERUM 1.5 mg/dL (0.72-1.25); POTASSIUM 4.6 mmol/L (3.5-5.1)
[2022-11-08] MEDS: INSULIN LISPRO 100 UNIT/1 ML 3ML VIAL SQ SCH ×4 (07:30→21:11)
[2022-11-08] MEDS: FINASTERIDE 5 MG TAB PO SCH (08:30)
[2022-11-08] MEDS: ASPIRIN 81 MG ENTERIC COATED PO SCH (08:30)
[2022-11-08] MEDS: VALSARTAN/SACUBITRIL 24MG/26MG 1 EA TAB PO SCH ×2 (08:30→21:07)
[2022-11-08] MEDS: SPIRONOLACTONE 25 MG TAB PO SCH (08:30)
[2022-11-08] MEDS: ALLOPURINOL 300 MG TAB PO SCH (08:30)
[2022-11-08] MEDS: EMPAGLIFLOZIN 10 MG TABLET PO SCH (08:30)
[2022-11-08] MEDS: CLOPIDOGREL BISULFATE 75 MG TAB PO SCH (08:31)
[2022-11-08] MEDS: FUROSEMIDE INJ 10 MG/ML 4 ML VIAL IV SCH (08:32)
[2022-11-08] MEDS: ATORVASTATIN 40 MG TAB PO SCH (21:07)
[2022-11-08] MEDS: TAMSULOSIN HCL 0.4 MG CAP PO SCH (21:07)
[2022-11-09 00:40] VITALS: BP 104/46
[2022-11-09] MEDS: ALBUTEROL/IPRATROPIUM 3 ML NEB NEB SCH ×2 (03:45→06:58)
[2022-11-09 05:04] VITALS: BP 111/50
[2022-11-09] MEDS: METHYLPREDNISOLONE SOD SUCC 40 MG/ML VIAL 1ML IV SCH (05:09)
[2022-11-09] MEDS: INSULIN LISPRO 100 UNIT/1 ML 3ML VIAL SQ SCH (09:00)
[2022-11-09 09:09] VITALS: BP 119/50
[2022-11-09] MEDS: FINASTERIDE 5 MG TAB PO SCH (09:09)
[2022-11-09] MEDS: EMPAGLIFLOZIN 10 MG TABLET PO SCH (09:09)
[2022-11-09] MEDS: FUROSEMIDE INJ 10 MG/ML 4 ML VIAL IV SCH (09:09)
[2022-11-09] MEDS: ALLOPURINOL 300 MG TAB PO SCH (09:09)
[2022-11-09] MEDS: CLOPIDOGREL BISULFATE 75 MG TAB PO SCH (09:09)
[2022-11-09] MEDS: ASPIRIN 81 MG ENTERIC COATED PO SCH (09:10)
[2022-11-09] MEDS: VALSARTAN/SACUBITRIL 24MG/26MG 1 EA TAB PO SCH (09:20)
[2022-11-09] MEDS: SPIRONOLACTONE 25 MG TAB PO SCH (09:20)
[2022-11-09] MEDS ORDERED: AZITHROMYCIN 250 MG TAB PO SCH (10:00)
[2022-11-09] MEDS ORDERED: BREZTRI AEROS10.7 GM INH (11:29)
[2022-11-09] MEDS ORDERED: DOXYCYCLINE MO100 MG PO (11:31)
== END 2022-11-09 11:58 | disposition home or self-care (01) | DRG 291 ==
LOC: ER 07:40 → ERHOLD 08:56 → MED/SURG2 13:45 → OBSVTOIN 11-08 08:31
PROVIDERS: ADMIT Internal Medicine; ATTEND Internal Medicine
DX: I13.0 Hypertensive heart and chronic kidney disease with heart failure and stage 1 through stage 4 chronic kidney disease, or unspecified chronic kidney disease (principal); I50.23 Acute on chronic systolic (congestive) heart failure; J18.9 Pneumonia, unspecified organism; J44.0 Chronic obstructive pulmonary disease with (acute) lower respiratory infection; J44.1 Chronic obstructive pulmonary disease with (acute) exacerbation; I44.2 Atrioventricular block, complete; N18.30 Chronic kidney disease, stage 3 unspecified; F10.20 Alcohol dependence, uncomplicated; Z20.822 Contact with and (suspected) exposure to COVID-19; Z95.810 Presence of automatic (implantable) cardiac defibrillator; E11.69 Type 2 diabetes mellitus with other specified complication; E78.5 Hyperlipidemia, unspecified
CPT/HCPCS: 36415; 71045; 71250; 80048; 80053; 82550; 82553; 82948; 83036; 83735; 83880; 84484; 85025; 93005; 93306; 94640; 94760; 94799; 96372; 99284; G0378; J0696; J1940; J2920; J2930; J7050

== ENCOUNTER 2022-12-08 02:20 | Observation (INO) | payer MEDICARE ==
[~2022-12-08] VITALS: Ht 167.6 cm; Wt 75.7 kg
[2022-12-08] VITALS (11 sets, daily range): BP systolic 101–123; BP diastolic 48–66; PULSE 44–99; RESP 15–20; TEMP 97.5–98.1; O2SAT 97–100
[~2022-12-08 02:20] MED LIST changes: +BREZTRI AEROS10.7 GM INH; +CARVEDILOL3.125 MG PO; +DOXYCYCLINE MO100 MG PO; +ENTRESTO 24 MG1 EACH
[2022-12-08 02:39] LABS: BASOPHILS % 0.7 % (0.0-1.0); EOSINOPHILS # (AUTO) 0.3 (0.0-0.4); EOSINOPHILS % 4.5 % (0.0-6.0); HEMATOCRIT 38.2 % (38.2-49.6); HEMOGLOBIN 12.4 g/dL (14.0-18.0); LYMPHOCYTES # (AUTO) 1.4 (1.0-3.2); LYMPHOCYTES % 25.4 % (18.0-39.1); MEAN CORPUSCULAR HEMOGLOBIN 31.2 pg (28-32); MEAN CORPUSCULAR HGB CONC 32.5 g/dL (31-35); MEAN CORPUSCULAR VOLUME 96.2 fL (81-99); MONOCYTES # (AUTO) 0.4 (0.2-0.8); MONOCYTES % 7.5 % (4.4-11.3); NEUTROPHILS # (AUTO) 3.4 (2.1-6.9); NEUTROPHILS % 61.4 % (38.7-80.0); PLATELET COUNT 169 x10e3/uL (140-360); RED BLOOD COUNT 3.97 x10e6/uL (4.3-5.7); RED CELL DISTRIBUTION WIDTH 14.6 % (11.7-14.4)
[2022-12-08 03:01] LABS: ALBUMIN 3.8 g/dL (3.5-5.0); ALBUMIN/GLOBULIN RATIO 1.4 (0.8-2.0); ANION GAP 17.7 mmol/L (8-16); CALCIUM 9.1 mg/dL (8.4-10.2); CREATININE, SERUM 1.66 mg/dL (0.72-1.25); POTASSIUM 4.7 mmol/L (3.5-5.1)
[2022-12-08 03:07] LABS: CREATINE KINASE MB 1.2 ng/mL (0-5.0)
[2022-12-08] MEDS ORDERED: SODIUM CHLORIDE FLUSH 10 ML SYR INJ PRN (03:45)
[2022-12-08] MEDS ORDERED: Morphine 4mg INJECTION 4 MG/ML INJ IV PRN (03:45)
[2022-12-08] MEDS ORDERED: ONDANSETRON HCL INJ 2MG/ML 2ML 2 MG/ML VIAL IV PRN (03:45)
[2022-12-08] MEDS: CARVEDILOL 3.125 MG TAB PO SCH ×2 (09:00→17:12)
[2022-12-08] MEDS: VALSARTAN/SACUBITRIL 24MG/26MG 1 EA TAB PO SCH ×2 (09:00→17:10)
[2022-12-08] MEDS: CLOPIDOGREL BISULFATE 75 MG TAB PO SCH (09:29)
[2022-12-08] MEDS: FUROSEMIDE INJ 10 MG/ML 4 ML VIAL IV SCH ×2 (09:29→21:59)
[2022-12-08] MEDS ORDERED: ALBUTEROL/IPRATROPIUM 3 ML NEB NEB PRN (09:30)
[2022-12-08] MEDS: SPIRONOLACTONE 25 MG TAB PO SCH ×2 (11:01→21:59)
[2022-12-08] MEDS ORDERED: SODIUM CHLORIDE 0.9% 250ML 250 ML ONE (11:11)
[2022-12-08 11:41] LABS: CREATINE KINASE MB 2.9 ng/mL (0-5.0)
[2022-12-08] MEDS: ALBUTEROL/IPRATROPIUM 3 ML NEB NEB SCH ×2 (14:00→20:32)
[2022-12-08] MEDS ORDERED: RIVAROXABAN 10 MG TABLET PO SCH (17:00)
[2022-12-08 19:41] LABS: CREATINE KINASE MB 2.3 ng/mL (0-5.0)
[2022-12-08] MEDS ORDERED: TAMSULOSIN HCL 0.4 MG CAP PO SCH (21:00)
[2022-12-09 00:42] VITALS: BP 112/54; PULSE 72; RESP 16; TEMP 97.3; O2SAT 100
[2022-12-09 02:06] VITALS: PULSE 72; RESP 18; O2SAT 99
[2022-12-09] MEDS: ALBUTEROL/IPRATROPIUM 3 ML NEB NEB SCH ×2 (02:06→07:00)
[2022-12-09 05:55] LABS: BASOPHILS % 0.4 % (0.0-1.0); EOSINOPHILS # (AUTO) 0.2 (0.0-0.4); EOSINOPHILS % 3.7 % (0.0-6.0); HEMATOCRIT 34.3 % (38.2-49.6); HEMOGLOBIN 11.6 g/dL (14.0-18.0); LYMPHOCYTES # (AUTO) 1.1 (1.0-3.2); LYMPHOCYTES % 23.7 % (18.0-39.1); MEAN CORPUSCULAR HEMOGLOBIN 31.6 pg (28-32); MEAN CORPUSCULAR HGB CONC 33.8 g/dL (31-35); MEAN CORPUSCULAR VOLUME 93.5 fL (81-99); MONOCYTES # (AUTO) 0.3 (0.2-0.8); MONOCYTES % 7.5 % (4.4-11.3); NEUTROPHILS # (AUTO) 2.9 (2.1-6.9); NEUTROPHILS % 64.5 % (38.7-80.0); PLATELET COUNT 159 x10e3/uL (140-360); RED BLOOD COUNT 3.67 x10e6/uL (4.3-5.7); RED CELL DISTRIBUTION WIDTH 14.5 % (11.7-14.4)
[2022-12-09 06:19] LABS: ALBUMIN 3.5 g/dL (3.5-5.0); ALBUMIN/GLOBULIN RATIO 1.5 (0.8-2.0); ANION GAP 15.1 mmol/L (8-16); CALCIUM 8.8 mg/dL (8.4-10.2); CREATININE, SERUM 1.42 mg/dL (0.72-1.25); POTASSIUM 4.1 mmol/L (3.5-5.1)
[2022-12-09 08:00] VITALS: BP 112/54; PULSE 60; RESP 16; TEMP 97.3; O2SAT 99
[2022-12-09 08:57] VITALS: BP 91/47; PULSE 83; RESP 20; TEMP 98.2; O2SAT 100
[2022-12-09] MEDS ORDERED: EMPAGLIFLOZIN 10 MG TABLET PO SCH (09:00)
[2022-12-09] MEDS ORDERED: ALLOPURINOL 300 MG TAB PO SCH (09:00)
[2022-12-09] MEDS: CARVEDILOL 3.125 MG TAB PO SCH (09:00)
[2022-12-09] MEDS: FUROSEMIDE INJ 10 MG/ML 4 ML VIAL IV SCH (09:37)
[2022-12-09] MEDS: CLOPIDOGREL BISULFATE 75 MG TAB PO SCH (09:37)
[2022-12-09] MEDS: VALSARTAN/SACUBITRIL 24MG/26MG 1 EA TAB PO SCH (09:37)
[2022-12-09] MEDS: SPIRONOLACTONE 25 MG TAB PO SCH (09:57)
[2022-12-09] MEDS ORDERED: LASIX40 MG PO (10:36)
[2022-12-09 12:11] VITALS: BP 103/64; PULSE 62; RESP 20; TEMP 98.1; O2SAT 100
== END 2022-12-09 14:13 | disposition home or self-care (01) ==
LOC: ER 02:23 → ERHOLD 03:34 → MED/SURG3 08:36
PROVIDERS: ADMIT Internal Medicine; ATTEND Internal Medicine
DX: I11.0 Hypertensive heart disease with heart failure (principal); I50.23 Acute on chronic systolic (congestive) heart failure; J44.1 Chronic obstructive pulmonary disease with (acute) exacerbation; I25.5 Ischemic cardiomyopathy; I48.91 Unspecified atrial fibrillation; I48.92 Unspecified atrial flutter; Z79.01 Long term (current) use of anticoagulants; I25.10 Atherosclerotic heart disease of native coronary artery without angina pectoris; Z95.1 Presence of aortocoronary bypass graft; Z91.118 Patient's noncompliance with dietary regimen for other reason; Z95.810 Presence of automatic (implantable) cardiac defibrillator; F10.20 Alcohol dependence, uncomplicated; Z87.891 Personal history of nicotine dependence; Z11.52 Encounter for screening for COVID-19; Z86.16 Personal history of COVID-19; Z79.899 Other long term (current) drug therapy
CPT/HCPCS: 36415 ×2; 71045; 71250; 80053 ×2; 80320; 82550; 82553; 83690; 83880; 84484; 85025 ×2; 93005; 94640 ×3; 94799 ×2; 99284; G0378 ×2; J0456 ×2; J0696 ×2; J1940 ×2; J7050 ×2; U0002

== ENCOUNTER 2022-12-14 12:06 | Emergency (ER) | payer MEDICARE ==
[~2022-12-14] VITALS: Ht 167.6 cm; Wt 75.7 kg
[2022-12-14 12:59] LABS: BASOPHILS % 0.1 % (0.0-1.0); HEMATOCRIT 39.1 % (38.2-49.6); HEMOGLOBIN 12.9 g/dL (14.0-18.0); LYMPHOCYTES # (AUTO) 0.5 (1.0-3.2); LYMPHOCYTES % 6.6 % (18.0-39.1); MEAN CORPUSCULAR HEMOGLOBIN 31.5 pg (28-32); MEAN CORPUSCULAR VOLUME 95.6 fL (81-99); MONOCYTES # (AUTO) 0.4 (0.2-0.8); MONOCYTES % 4.8 % (4.4-11.3); NEUTROPHILS # (AUTO) 7.1 (2.1-6.9); NEUTROPHILS % 87.9 % (38.7-80.0); PLATELET COUNT 181 x10e3/uL (140-360); RED BLOOD COUNT 4.09 x10e6/uL (4.3-5.7); RED CELL DISTRIBUTION WIDTH 14.9 % (11.7-14.4)
[2022-12-14 13:17] LABS: ALBUMIN 4.3 g/dL (3.5-5.0); ALBUMIN/GLOBULIN RATIO 1.7 (0.8-2.0); ANION GAP 16.4 mmol/L (8-16); CALCIUM 9.4 mg/dL (8.4-10.2); CREATININE, SERUM 1.64 mg/dL (0.72-1.25); POTASSIUM 4.4 mmol/L (3.5-5.1)
[2022-12-14] MEDS ORDERED: INSULIN REGULAR, HUMAN 100 UNIT/1 ML IV ONE (14:00)
[2022-12-14 14:34] VITALS: O2SAT 98
== END 2022-12-14 15:37 | disposition home or self-care (01) ==
LOC: ER 12:14
DX: E11.65 Type 2 diabetes mellitus with hyperglycemia (principal); I10 Essential (primary) hypertension; J44.9 Chronic obstructive pulmonary disease, unspecified; E78.5 Hyperlipidemia, unspecified; M54.9 Dorsalgia, unspecified; G89.29 Other chronic pain; Z95.810 Presence of automatic (implantable) cardiac defibrillator; Z95.1 Presence of aortocoronary bypass graft
CPT/HCPCS: 36415; 80053; 82948; 83036; 85025; 99284

== ENCOUNTER 2023-01-02 11:57 | Emergency (ER) | payer MEDICARE ==
[~2023-01-02] VITALS: Ht 167.6 cm; Wt 75.7 kg
[2023-01-02] MEDS ORDERED: ULTRAM 50MG50 MG PO (12:04)
[2023-01-02 13:09] VITALS: O2SAT 100
== END 2023-01-02 13:17 | disposition home or self-care (01) ==
LOC: ER 12:02
DX: M79.672 Pain in left foot (principal); S92.352D Displaced fracture of fifth metatarsal bone, left foot, subsequent encounter for fracture with routine healing; I10 Essential (primary) hypertension; E11.9 Type 2 diabetes mellitus without complications; J44.9 Chronic obstructive pulmonary disease, unspecified; E78.5 Hyperlipidemia, unspecified; M54.9 Dorsalgia, unspecified; G89.29 Other chronic pain
CPT/HCPCS: 99283

== ENCOUNTER 2023-11-23 08:45 | Emergency (ER) | payer MEDICARE ==
[~2023-11-23] VITALS: Ht 167.6 cm; Wt 75.7 kg
[~2023-11-23 08:45] MED LIST changes: +ULTRAM 50MG50 MG PO; +VITAMIN B-121000 MCG PO
[2023-11-23] MEDS ORDERED: LEVSIN-SL0.125 MG SL (09:32)
[2023-11-23 10:11] VITALS: BP 112/68; PULSE 60; RESP 16; TEMP 98.3; O2SAT 98
== END 2023-11-23 10:15 | disposition home or self-care (01) ==
LOC: ER 08:53
DX: R10.30 Lower abdominal pain, unspecified (principal); G89.29 Other chronic pain; I10 Essential (primary) hypertension; E11.9 Type 2 diabetes mellitus without complications; E78.5 Hyperlipidemia, unspecified; I25.10 Atherosclerotic heart disease of native coronary artery without angina pectoris; J44.9 Chronic obstructive pulmonary disease, unspecified; M54.9 Dorsalgia, unspecified; Z95.810 Presence of automatic (implantable) cardiac defibrillator; Z86.718 Personal history of other venous thrombosis and embolism; Z95.1 Presence of aortocoronary bypass graft
CPT/HCPCS: 99283

== ENCOUNTER 2024-06-29 17:56 | Emergency (ER) | payer MEDICARE ==
[~2024-06-29] VITALS: Ht 167.6 cm; Wt 62.1 kg
[~2024-06-29 17:56] MED LIST changes: +ISOSORBIDE DINI20 MG PO; +LEVSIN-SL0.125 MG SL; +LIPITOR20 MG PO
[2024-06-29 18:05] VITALS: TEMP 98.5
[2024-06-29] MEDS: Morphine 4mg INJECTION 4 MG/ML INJ IV STA (18:24)
[2024-06-29] MEDS: SODIUM CHLORIDE 0.9% 1000ML 1,000 ML IV STA (18:24)
[2024-06-29] MEDS: ONDANSETRON HCL INJ 2MG/ML 2ML 2 MG/ML VIAL IV STA (18:24)
[2024-06-29 18:34] LABS: BASOPHILS # (AUTO) 0.1 (0.0-0.1); BASOPHILS % 0.5 % (0.0-1.0); EOSINOPHILS # (AUTO) 0.2 (0.0-0.4); EOSINOPHILS % 2.2 % (0.0-6.0); HEMATOCRIT 39.3 % (38.2-49.6); HEMOGLOBIN 12.8 g/dL (14.0-18.0); LYMPHOCYTES # (AUTO) 0.9 (1.0-3.2); MEAN CORPUSCULAR HEMOGLOBIN 31.6 pg (28-32); MEAN CORPUSCULAR HGB CONC 32.6 g/dL (31-35); MONOCYTES # (AUTO) 0.5 (0.2-0.8); NEUTROPHILS # (AUTO) 8.5 (2.1-6.9); NEUTROPHILS % 83.1 % (38.7-80.0); PLATELET COUNT 233 x10e3/uL (140-360); RED BLOOD COUNT 4.05 x10e6/uL (4.3-5.7); RED CELL DISTRIBUTION WIDTH 13.5 % (11.7-14.4)
[2024-06-29 18:49] LABS: ALBUMIN 3.8 g/dL (3.5-5.0); ALBUMIN/GLOBULIN RATIO 1.2 (0.8-2.0); BILIRUBIN,TOTAL 1.4 mg/dL (0.2-1.2); CALCIUM 9.4 mg/dL (8.4-10.2); CREATININE, SERUM 1.97 mg/dL (0.72-1.25); TOTAL PROTEIN 6.9 g/dL (6.5-8.1)
[2024-06-29 18:52] LABS: BILIRUBIN,URINE NEGATIVE (NEGATIVE); CLARITY,URINE CLEAR (CLEAR); COLOR,URINE YELLOW (YELLOW); GLUCOSE, URINE 500 (NEGATIVE); KETONES,URINE NEGATIVE (NEGATIVE); LEUKOCYTE ESTERASE ,URINE 1+ (NEGATIVE); NITRITE,URINE NEGATIVE (NEGATIVE); PH,URINE 6 (5 - 7); PROTEIN,URINE DIPSTICK NEGATIVE (NEGATIVE); URINE UROBILINOGEN 1 mg/dL (0.2 - 1)
[2024-06-29 18:56] LABS: TROPONIN I 0.043 ng/mL (0-0.300)
[2024-06-29 18:57] LABS: BACTERIA,URINE FEW /HPF; EPITHELIAL CELLS,URINE MODERATE /LPF; RBC,URINE 0-5 /HPF (0-5)
[2024-06-29 20:30] VITALS: PULSE 71; RESP 20; O2SAT 100
[2024-06-29] MEDS ORDERED: PROTONIX20 MG PO (21:16)
== END 2024-06-29 21:45 | disposition home or self-care (01) ==
LOC: ER 18:05
DX: R10.13 Epigastric pain (principal); R11.2 Nausea with vomiting, unspecified; I10 Essential (primary) hypertension; E11.9 Type 2 diabetes mellitus without complications; J44.9 Chronic obstructive pulmonary disease, unspecified; E78.5 Hyperlipidemia, unspecified; Z95.810 Presence of automatic (implantable) cardiac defibrillator; Z95.1 Presence of aortocoronary bypass graft; Z86.718 Personal history of other venous thrombosis and embolism
CPT/HCPCS: 36415; 74177; 80053; 81001; 82550; 83690; 84484; 85025; 93005; 99284; J2270; J2405; J7030

== ENCOUNTER 2024-12-29 07:42 | Inpatient (IN) | payer MEDICARE ==
[~2024-12-29] VITALS: Ht 167.6 cm; Wt 64.9 kg
[2024-12-29] VITALS (9 sets, daily range): BP systolic 126–148; BP diastolic 56–61; PULSE 59–66; RESP 18–26; TEMP 97.9–98.2; O2SAT 99–100
[~2024-12-29 07:42] MED LIST changes: +BACTRIM 400-801 EACH PO; +PROTONIX20 MG PO
[2024-12-29 08:11] LABS: BASOPHILS % 0.3 % (0.0-1.0); EOSINOPHILS # (AUTO) 0.7 (0.0-0.4); EOSINOPHILS % 7.6 % (0.0-6.0); HEMATOCRIT 31.4 % (38.2-49.6); HEMOGLOBIN 10.6 g/dL (14.0-18.0); LYMPHOCYTES # (AUTO) 0.9 (1.0-3.2); LYMPHOCYTES % 9.6 % (18.0-39.1); MEAN CORPUSCULAR HEMOGLOBIN 31.8 pg (28-32); MEAN CORPUSCULAR HGB CONC 33.8 g/dL (31-35); MEAN CORPUSCULAR VOLUME 94.3 fL (81-99); MONOCYTES # (AUTO) 0.7 (0.2-0.8); MONOCYTES % 7.5 % (4.4-11.3); NEUTROPHILS # (AUTO) 6.6 (2.1-6.9); NEUTROPHILS % 74.7 % (38.7-80.0); PLATELET COUNT 180 x10e3/uL (140-360); RED BLOOD COUNT 3.33 x10e6/uL (4.3-5.7); RED CELL DISTRIBUTION WIDTH 14.6 % (11.7-14.4); WHITE BLOOD COUNT 8.81 x10e3/uL (4.8-10.8)
[2024-12-29] MEDS: ALBUTEROL/IPRATROPIUM 3 ML NEB NEB ONE (08:24)
[2024-12-29] MEDS: SODIUM CHLORIDE 0.9% 500ML 500 ML IV ONE (08:25)
[2024-12-29 08:34] LABS: ALBUMIN 3.5 g/dL (3.5-5.0); ALBUMIN/GLOBULIN RATIO 1.4 (0.8-2.0); ANION GAP 15.4 mmol/L (8-16); BILIRUBIN,TOTAL 1.4 mg/dL (0.2-1.2); CALCIUM 8.5 mg/dL (8.4-10.2); CREATININE, SERUM 2.22 mg/dL (0.72-1.25); POTASSIUM 4.4 mmol/L (3.5-5.1)
[2024-12-29] MEDS ORDERED: ONDANSETRON HCL INJ 2MG/ML 2ML 2 MG/ML VIAL IV PRN ×2 (10:00→13:30)
[2024-12-29] MEDS ORDERED: SODIUM CHLORIDE FLUSH 10 ML SYR INJ PRN (10:00)
[2024-12-29] MEDS ORDERED: DEXTROSE 50% SYRINGE 50 ML IV PRN ×2 (13:30→16:15)
[2024-12-29] MEDS ORDERED: POTASSIUM CHLORIDE 20 MEQ TAB CR PO PRN (13:30)
[2024-12-29] MEDS ORDERED: ALBUTEROL/IPRATROPIUM 3 ML NEB NEB PRN (13:30)
[2024-12-29] MEDS ORDERED: BENZONATATE 100 MG CAP PO PRN (13:30)
[2024-12-29] MEDS ORDERED: HYDRALAZINE HCL 20 MG/ML VIAL IV PRN (13:30)
[2024-12-29] MEDS ORDERED: SIMETHICONE 80 MG CHEW PO PRN (13:30)
[2024-12-29] MEDS ORDERED: DIPHENHYDRAMINE HCL 25 MG CAP PO PRN (13:30)
[2024-12-29] MEDS ORDERED: ACETAMINOPHEN 325 MG TAB PO PRN (13:30)
[2024-12-29] MEDS ORDERED: LIDOCAINE 4% PATCH TP PRN (13:30)
[2024-12-29] MEDS: DOCUSATE SODIUM 100 MG CAP PO PRN (14:46)
[2024-12-29] MEDS: SODIUM CHLORIDE 0.9% 500ML 500 ML IV SCH (17:41)
[2024-12-29] MEDS: METHYLPREDNISOLONE SOD SUCC 40 MG/ML VIAL 1ML IV SCH (17:45)
[2024-12-29] MEDS: ENOXAPARIN 30 MG/0.3 ML SYR SC SCH (17:47)
[2024-12-29] MEDS: SACUBITRIL/VALSARTAN 24MG/26MG 1 EA TAB PO SCH (17:49)
[2024-12-29] MEDS: INSULIN LISPRO 100 UNIT/1 ML 3ML VIAL SQ SCH (17:49)
[2024-12-29] MEDS: LACTULOSE SYRUP 20 GM/30 ML UDC PO SCH (17:51)
[2024-12-29] MEDS ORDERED: MELATONIN 5 MG TABLET PO PRN (21:00)
[2024-12-29] MEDS: TAMSULOSIN HCL 0.4 MG CAP PO SCH (22:09)
[2024-12-29] MEDS: ATORVASTATIN 20 MG TAB PO SCH (22:09)
[2024-12-30] VITALS (12 sets, daily range): BP systolic 103–126; BP diastolic 44–58; PULSE 57–98; RESP 18–20; TEMP 97.4–98.1; O2SAT 60–100
[2024-12-30] MEDS: ALBUTEROL/IPRATROPIUM 3 ML NEB NEB SCH (00:26)
[2024-12-30 05:37] LABS: BASOPHILS % 0.1 % (0.0-1.0); HEMATOCRIT 36.5 % (38.2-49.6); HEMOGLOBIN 12.1 g/dL (14.0-18.0); LYMPHOCYTES # (AUTO) 0.6 (1.0-3.2); LYMPHOCYTES % 5.7 % (18.0-39.1); MEAN CORPUSCULAR HEMOGLOBIN 31.9 pg (28-32); MEAN CORPUSCULAR HGB CONC 33.2 g/dL (31-35); MEAN CORPUSCULAR VOLUME 96.3 fL (81-99); MONOCYTES # (AUTO) 0.2 (0.2-0.8); MONOCYTES % 1.9 % (4.4-11.3); NEUTROPHILS # (AUTO) 9.4 (2.1-6.9); NEUTROPHILS % 91.7 % (38.7-80.0); PLATELET COUNT 221 x10e3/uL (140-360); RED BLOOD COUNT 3.79 x10e6/uL (4.3-5.7); RED CELL DISTRIBUTION WIDTH 14.8 % (11.7-14.4); WHITE BLOOD COUNT 10.23 x10e3/uL (4.8-10.8)
[2024-12-30 06:18] LABS: ALBUMIN 3.8 g/dL (3.5-5.0); ALBUMIN/GLOBULIN RATIO 1.4 (0.8-2.0); ANION GAP 19.4 mmol/L (8-16); BILIRUBIN,TOTAL 1.6 mg/dL (0.2-1.2); CALCIUM 8.9 mg/dL (8.4-10.2); CREATININE, SERUM 2.08 mg/dL (0.72-1.25); POTASSIUM 4.4 mmol/L (3.5-5.1); TOTAL PROTEIN 6.6 g/dL (6.5-8.1)
[2024-12-30] MEDS: BUDESONIDE 0.5MG/2 ML NEB INH SCH (07:18)
[2024-12-30] MEDS: PANTOPRAZOLE SOD 40 MG TABEC PO SCH (08:56)
[2024-12-30] MEDS: CLOPIDOGREL BISULFATE 75 MG TAB PO SCH (08:57)
[2024-12-30] MEDS: FINASTERIDE 5 MG TAB PO SCH (08:57)
[2024-12-30] MEDS: ISOSORBIDE DINITRATE 20 MG TAB PO SCH (08:57)
[2024-12-30] MEDS: EMPAGLIFLOZIN 10 MG TABLET PO SCH (08:58)
[2024-12-30] MEDS: SODIUM CHLORIDE 0.9% 500ML 500 ML IV SCH (19:04)
[2024-12-31] VITALS (12 sets, daily range): BP systolic 109–134; BP diastolic 51–63; PULSE 59–85; RESP 16–22; TEMP 97.7–98.1; O2SAT 95–100
[2024-12-31 05:45] LABS: HEMATOCRIT 32.8 % (38.2-49.6); HEMOGLOBIN 10.8 g/dL (14.0-18.0)
[2024-12-31 06:19] LABS: ANION GAP 15.1 mmol/L (8-16); CALCIUM 8.4 mg/dL (8.4-10.2); CREATININE, SERUM 1.83 mg/dL (0.72-1.25); POTASSIUM 4.1 mmol/L (3.5-5.1)
[2024-12-31] MEDS: ACETYLCYSTEINE 20% INHAL SOLN 30 ML VIAL INH SCH (19:45)
[2024-12-31] MEDS: METHYLPREDNISOLONE SOD SUCC 40 MG/ML VIAL 1ML IV SCH (22:09)
[2025-01-01] VITALS (7 sets, daily range): BP systolic 123–138; BP diastolic 56–64; PULSE 59–74; RESP 16–22; TEMP 97.7–98.2; O2SAT 95–100
[2025-01-01] MEDS: ACETYLCYSTEINE 200 MG/ML 4 ML VIAL ONE (01:45)
[2025-01-01] MEDS ORDERED: BUDESONIDE-FO10.2 G1 IH (11:09)
[2025-01-01] MEDS ORDERED: PREDNISONE20 MG PO (11:09)
[2025-01-01] MEDS: ACETYLCYSTEINE 200 MG/ML 4 ML VIAL INH SCH (12:08)
[2025-01-01] MEDS ORDERED: ACETYLCYSTEINE 200 MG/ML 4 ML VIAL INH SCH (13:00)
[2025-01-01] MEDS ORDERED: MEDROL DOSE PAK (13:09)
[2025-01-01] MEDS ORDERED: SODIUM BICARBO650 MG PO (13:21)
== END 2025-01-01 14:25 | disposition home or self-care (01) | DRG 202 ==
LOC: ER 07:50 → ERHOLD 10:00 → MED/SURG2 10:39 → OBSVTOIN 12-31 15:24
PROVIDERS: ADMIT Internal Medicine; ATTEND Internal Medicine
DX: J45.901 Unspecified asthma with (acute) exacerbation (principal); J96.01 Acute respiratory failure with hypoxia; N17.9 Acute kidney failure, unspecified; I12.9 Hypertensive chronic kidney disease with stage 1 through stage 4 chronic kidney disease, or unspecified chronic kidney disease; E11.22 Type 2 diabetes mellitus with diabetic chronic kidney disease; N18.30 Chronic kidney disease, stage 3 unspecified; I25.10 Atherosclerotic heart disease of native coronary artery without angina pectoris; E78.5 Hyperlipidemia, unspecified; J44.9 Chronic obstructive pulmonary disease, unspecified; M54.9 Dorsalgia, unspecified; Z79.52 Long term (current) use of systemic steroids; Z79.84 Long term (current) use of oral hypoglycemic drugs; Z79.02 Long term (current) use of antithrombotics/antiplatelets; Z95.1 Presence of aortocoronary bypass graft; Z86.718 Personal history of other venous thrombosis and embolism; Z95.810 Presence of automatic (implantable) cardiac defibrillator; Z88.1 Allergy status to other antibiotic agents
CPT/HCPCS: 36415; 71046; 80048; 80053; 82948; 83036; 84484; 85014; 85018; 85025; 93005; 93970; 94640; 94760; 94799; 99284; G0378; J1650; J2470; J2919; J7040; J7050

== ENCOUNTER 2025-01-16 03:07 | Emergency (ER) | payer MEDICARE ==
[~2025-01-16] VITALS: Ht 167.6 cm; Wt 64.9 kg
[~2025-01-16 03:07] MED LIST changes: +BUDESONIDE-FO10.2 G1 IH; +MEDROL DOSE PAK; +SODIUM BICARBO650 MG PO
[2025-01-16 03:29] LABS: BASOPHILS % 0.1 % (0.0-1.0); HEMATOCRIT 30.4 % (38.2-49.6); HEMOGLOBIN 10.4 g/dL (14.0-18.0); LYMPHOCYTES # (AUTO) 0.2 (1.0-3.2); LYMPHOCYTES % 1.7 % (18.0-39.1); MEAN CORPUSCULAR HEMOGLOBIN 31.7 pg (28-32); MEAN CORPUSCULAR HGB CONC 34.2 g/dL (31-35); MEAN CORPUSCULAR VOLUME 92.7 fL (81-99); MONOCYTES # (AUTO) 0.3 (0.2-0.8); NEUTROPHILS # (AUTO) 8.2 (2.1-6.9); NEUTROPHILS % 93.7 % (38.7-80.0); PLATELET COUNT 110 x10e3/uL (140-360); RED BLOOD COUNT 3.28 x10e6/uL (4.3-5.7)
[2025-01-16 03:34] VITALS: PULSE 60; RESP 18; O2SAT 98
[2025-01-16] MEDS: ALBUTEROL/IPRATROPIUM 3 ML NEB NEB ONE (03:34)
[2025-01-16 03:51] LABS: ALBUMIN 2.9 g/dL (3.5-5.0); ALBUMIN/GLOBULIN RATIO 1.1 (0.8-2.0); BILIRUBIN,TOTAL 2.1 mg/dL (0.2-1.2); CALCIUM 8.3 mg/dL (8.4-10.2); CREATININE, SERUM 1.6 mg/dL (0.72-1.25); TOTAL PROTEIN 5.5 g/dL (6.5-8.1)
[2025-01-16] MEDS: INSULIN REGULAR, HUMAN 100 UNIT/1 ML IV ONE (04:05)
[2025-01-16 04:17] VITALS: TEMP 98.3
[2025-01-16] MEDS: FUROSEMIDE INJ 10 MG/ML 4 ML VIAL IV ONE (04:17)
[2025-01-16 05:00] VITALS: PULSE 70; RESP 20; O2SAT 99
[2025-01-16] MEDS: TRAMADOL HCL 50 MG TAB PO ONE (05:11)
[2025-01-16 05:38] VITALS: BP 143/64; PULSE 66; RESP 23; TEMP 98.1
== END 2025-01-16 05:40 | disposition home or self-care (01) ==
LOC: ER 03:10
DX: R06.02 Shortness of breath (principal); J44.9 Chronic obstructive pulmonary disease, unspecified; I50.9 Heart failure, unspecified; E11.65 Type 2 diabetes mellitus with hyperglycemia; I25.10 Atherosclerotic heart disease of native coronary artery without angina pectoris; E78.5 Hyperlipidemia, unspecified; M54.9 Dorsalgia, unspecified; G89.29 Other chronic pain; Z95.810 Presence of automatic (implantable) cardiac defibrillator; Z86.718 Personal history of other venous thrombosis and embolism
CPT/HCPCS: 36415; 71045; 80053; 82948; 83880; 84484; 85025; 93005; 94640; 94760; 94799; 99284; J1938

== ENCOUNTER 2025-02-14 09:34 | Emergency (ER) | payer MEDICARE ==
[~2025-02-14] VITALS: Ht 167.6 cm; Wt 64.9 kg
[2025-02-14 09:35] VITALS: TEMP 98.3
[2025-02-14] MEDS ORDERED: SODIUM CHLORIDE FLUSH 10 ML SYR IV PRN (09:45)
[2025-02-14 10:09] LABS: BASOPHILS % 0.6 % (0.0-1.0); EOSINOPHILS % 0.4 % (0.0-6.0); LYMPHOCYTES % 9.6 % (18.0-39.1); MONOCYTES % 6.1 % (4.4-11.3); NEUTROPHILS % 82.8 % (38.7-80.0); RED CELL DISTRIBUTION WIDTH 14.6 % (11.7-14.4)
[2025-02-14 10:11] VITALS: PULSE 89; RESP 18; O2SAT 96
[2025-02-14 10:13] LABS: EST GLOMERULAR FILTRATION RATE 70.0 ML/MIN (>=60)
[2025-02-14] MEDS: ALBUTEROL/IPRATROPIUM 3 ML NEB NEB ONE (10:18)
[2025-02-14] MEDS: MAGNESIUM SULFATE 2GM/50ML 50 ML IV ONE (10:50)
[2025-02-14] MEDS: FUROSEMIDE INJ 10 MG/ML 4 ML VIAL IV ONE (11:22)
[2025-02-14] MEDS ORDERED: PREDNISONE50 MG PO (13:33)
[2025-02-14 13:50] VITALS: PULSE 86; RESP 16
[2025-02-14 14:20] VITALS: PULSE 83; RESP 18; O2SAT 98
== END 2025-02-14 13:52 | disposition home or self-care (01) ==
LOC: ER 09:41
DX: R06.02 Shortness of breath (principal); J44.1 Chronic obstructive pulmonary disease with (acute) exacerbation; I50.9 Heart failure, unspecified; I10 Essential (primary) hypertension; E11.65 Type 2 diabetes mellitus with hyperglycemia; I25.10 Atherosclerotic heart disease of native coronary artery without angina pectoris; E78.5 Hyperlipidemia, unspecified; R94.31 Abnormal electrocardiogram [ECG] [EKG]; Z95.810 Presence of automatic (implantable) cardiac defibrillator; Z86.718 Personal history of other venous thrombosis and embolism
CPT/HCPCS: 36415; 71045; 80053; 83880; 84484; 85025; 93005; 94640; 94760; 94799; 99284; J1938; J3475

== ENCOUNTER 2025-04-20 15:37 | Emergency (ER) | payer MEDICARE ==
[~2025-04-20] VITALS: Ht 167.6 cm; Wt 64.9 kg
[~2025-04-20 15:37] MED LIST changes: +PREDNISONE50 MG PO
[2025-04-20 15:59] VITALS: TEMP 98.2
[2025-04-20 20:00] VITALS: PULSE 59; RESP 20
[2025-04-20] MEDS ORDERED: ACETAMINOPHEN 325 MG TAB PO ONE (20:15)
[2025-04-20 20:52] VITALS: BP 114/52; PULSE 59; RESP 20; O2SAT 98
== END 2025-04-20 20:30 | disposition home or self-care (01) ==
LOC: ER 18:00
DX: M25.531 Pain in right wrist (principal); M19.031 Primary osteoarthritis, right wrist; I10 Essential (primary) hypertension; E11.9 Type 2 diabetes mellitus without complications; J44.9 Chronic obstructive pulmonary disease, unspecified; J45.909 Unspecified asthma, uncomplicated; I25.10 Atherosclerotic heart disease of native coronary artery without angina pectoris; E78.5 Hyperlipidemia, unspecified; Z95.1 Presence of aortocoronary bypass graft; Z95.810 Presence of automatic (implantable) cardiac defibrillator; Z86.718 Personal history of other venous thrombosis and embolism
CPT/HCPCS: 99283